=== PATIENT | male | born 1935 | race Caucasian/White ===

== ENCOUNTER 2020-12-14 20:55 | Inpatient (IN) | payer MEDICARE ==
[2020-12-14] MEDS ORDERED: SODIUM CHLORIDE 0.9% 1,000 ML IV STA (21:19)
--- NOTE | 2020-12-14 21:55 | ED ---
Weakness HPI - General Chief complaint: Syncope Stated complaint: Syncope Time Seen by Provider: 12/14/20 21:19 Source: EMS, RN notes reviewed, old records reviewed, Caregiver Mode of arrival: EMS Limitations: altered mental status - History of Present Illness Initial comments: This is an 85-year-old male to the ER today for evaluation. Patient presents today for evaluation regards to altered mental status not feeling well possible syncopal episode of weakness. Patient underwent right history he states he just feels like crap. History obtained from chart EMS and patient's prior history. MD Complaint: generalized weakness, lack of energy, difficulty walking -: unknown Location: generalized Severity: severe Severity scale (1-10): 8 Quality: constant Consistency: constant Improves with: none Worsens with: none Context: recent illness, history of similar Associated Symptoms: confusion, loss of appetite, nausea/vomiting, shortness of breath - Related Data Home Medications Medication Instructions Recorded Confirmed Acetaminophen Tab [Tylenol] 650 mg PO Q6H PRN 12/14/20 12/14/20 Apixaban [Eliquis] 2.5 mg PO BID@0800,199912/14/20 12/14/20 Ascorbic Acid [Vitamin C] 500 mg PO DAILY@0800 12/14/20 12/14/20 Aspirin 81 mg PO DAILY@0800 12/14/20 12/14/20 Atorvastatin [Lipitor] 20 mg PO HS 12/14/20 12/14/20 Brinzolamide [Brinzolamide 1% 1 drop BOTH EYES BID@0800,1600 12/14/20 12/14/20 Ophth Susp] Cholecalciferol [Vitamin D3 (25 125 mcg PO DAILY@0800 12/14/20 12/14/20 Mcg = 1000 Iu)] Diltiazem Oral [Cardizem Oral] 30 mg PO BID@0800,199912/14/20 12/14/20 Donepezil [Aricept] 10 mg PO HS 12/14/20 12/14/20 Latanoprost Ophth [Xalatan 0.005%] 1 drop BOTH EYES HS 12/14/20 12/14/20 Lidocaine [Lidoderm 5% Patch] 1 patch TRANSDERM DAILY 12/14/20 12/14/20 Med Plus 2.0 120 ml PO BID@0800,1600 12/14/20 12/14/20 Melatonin 5 mg PO HS PRN 12/14/20 12/14/20 Multivitamins, Thera [Multivitamin 1 tab PO DAILY@0800 12/14/20 12/14/20 (formulary)] Pilocarpine 1% Ophth Soln [Isopto 1 drop RIGHT EYE BID@0800,199912/14/20 12/14/20 Carpine 1%] Timolol 0.5% Ophth Gel Forming 1 drop BOTH EYES BID@799,199912/14/20 12/14/20 [Timoptic-Xe 0.5% Gel Form] Zinc Sulfate [Orazinc] 220 mg PO DAILY@0800 12/14/20 12/14/20 Allergies Allergy/AdvReac Type Severity Reaction Status Date / Time oxycodone Allergy Unknown Verified 12/14/20 22:50 Penicillins Allergy Unknown Verified 12/14/20 22:50 Review of Systems ROS Statement: Those systems with pertinent positive or pertinent negative responses have been documented in the HPI. ROS Other: All systems not noted in ROS Statement are negative. Past Medical History Past Medical History: Atrial Fibrillation, Heart Failure Additional Past Medical History / Comment(s): lumbar fracture History of Any Multi-Drug Resistant Organisms: Unobtainable Past Surgical History: No Surgical Hx Reported Past Psychological History: Unable to Obtain Smoking Status: Unknown if ever smoked Past Alcohol Use History: Unable to Obtain Past Drug Use History: Unable to Obtain General Exam Limitations: altered mental status General appearance: alert, in no apparent distress Head exam: Present: atraumatic, normocephalic, normal inspection Eye exam: Present: normal appearance, PERRL, EOMI. Absent: scleral icterus, conjunctival injection, periorbital swelling ENT exam: Present: normal exam, mucous membranes moist Neck exam: Present: normal inspection. Absent: tenderness, meningismus, lymphadenopathy Respiratory exam: Present: normal lung sounds bilaterally. Absent: respiratory distress, wheezes, rales, rhonchi, stridor Cardiovascular Exam: Present: regular rate, normal rhythm, normal heart sounds. Absent: systolic murmur, diastolic murmur, rubs, gallop, clicks GI/Abdominal exam: Present: soft, normal bowel sounds. Absent: distended, tenderness, guarding, rebound, rigid Extremities exam: Present: normal inspection, full ROM, normal capillary refill. Absent: tenderness, pedal edema, joint swelling, calf tenderness Back exam: Present: normal inspection Neurological exam: Present: alert, oriented X3, CN II-XII intact Psychiatric exam: Present: normal affect, normal mood Skin exam: Present: warm, dry, intact, normal color. Absent: rash Course Vital Signs 12/14/20 21:05 Temperature 98.6 F Pulse Rate 78 Respiratory 19 Rate Blood Pressure 104/56 O2 Sat by Pulse 100 Oximetry - Reevaluation(s) Reevaluation #1: 12/15/20 00:35 Record is reviewed Reevaluation #2: 12/15/20 00:35 no change in symptoms Reevaluation #3: 12/15/20 00:35 Patient denies chest chest pain and reevaluation - Consultations Consultation #1: Spoke with Dr. Diallo agrees for admission of patient EKG Findings - EKG Comments: EKG Findings:: EKG shows A. fib 82 QRS 84 QTc 455 Medical Decision Making - Medical Decision Making 85 male to the ED for evaluation patient for severe weakness, states she does not feel well. Patient does have non-ST elevated FL with syncopal episode. Patient be admitted for evaluation and management - Lab Data Result diagrams: 12/14/20 21:51 12/14/20 21:51 Lab Results 12/14/20 12/14/20 12/14/20 Range/Units 21:51 21:51 21:51 WBC 8.6 (3.8-10.6) k/uL RBC 3.30 L (4.30-5.90) m/uL Hgb 10.4 L (13.0-17.5) gm/dL Hct 32.1 L (39.0-53.0) % MCV 97.4 (80.0-100.0) fL MCH 31.4 (25.0-35.0) pg MCHC 32.2 (31.0-37.0) g/dL RDW 13.3 (11.5-15.5) % Plt Count 409 (150-450) k/uL MPV 7.6 Neutrophils % 81 % Lymphocytes % 10 % Monocytes % 6 % Eosinophils % 0 % Basophils % 0 % Neutrophils # 7.0 (1.3-7.7) k/uL Lymphocytes # 0.9 L (1.0-4.8) k/uL Monocytes # 0.5 (0-1.0) k/uL Eosinophils # 0.0 (0-0.7) k/uL Basophils # 0.0 (0-0.2) k/uL PT 11.4 (9.0-12.0) sec INR 1.1 (<1.2) APTT 19.6 L (22.0-30.0) sec Sodium 141 (137-145) mmol/L Potassium 4.5 (3.5-5.1) mmol/L Chloride 108 H (98-107) mmol/L Carbon Dioxide 20 L (22-30) mmol/L Anion Gap 13 mmol/L BUN 58 H (9-20) mg/dL Creatinine 1.11 (0.66-1.25) mg/dL Est GFR (CKD-EPI)AfAm 70 (>60 ml/min/1.73 sqM) Est GFR (CKD-EPI)NonAf 60 (>60 ml/min/1.73 sqM) Glucose 125 H (74-99) mg/dL Plasma Lactic Acid Tommy (0.7-2.0) mmol/L Calcium 9.9 (8.4-10.2) mg/dL Phosphorus 3.0 (2.5-4.5) mg/dL Magnesium 2.1 (1.6-2.3) mg/dL Total Bilirubin 0.4 (0.2-1.3) mg/dL AST 30 (17-59) U/L ALT 17 (4-49) U/L Alkaline Phosphatase 79 (38-126) U/L Troponin I (0.000-0.034) ng/mL Total Protein 7.1 (6.3-8.2) g/dL Albumin 4.2 (3.5-5.0) g/dL TSH 0.978 (0.465-4.680) mIU/L 12/14/20 12/14/20 Range/Units 21:51 21:51 WBC (3.8-10.6) k/uL RBC (4.30-5.90) m/uL Hgb (13.0-17.5) gm/dL Hct (39.0-53.0) % MCV (80.0-100.0) fL MCH (25.0-35.0) pg MCHC (31.0-37.0) g/dL RDW (11.5-15.5) % Plt Count (150-450) k/uL MPV Neutrophils % % Lymphocytes % % Monocytes % % Eosinophils % % Basophils % % Neutrophils # (1.3-7.7) k/uL Lymphocytes # (1.0-4.8) k/uL Monocytes # (0-1.0) k/uL Eosinophils # (0-0.7) k/uL Basophils # (0-0.2) k/uL PT (9.0-12.0) sec INR (<1.2) APTT (22.0-30.0) sec Sodium (137-145) mmol/L Potassium (3.5-5.1) mmol/L Chloride (98-107) mmol/L Carbon Dioxide (22-30) mmol/L Anion Gap mmol/L BUN (9-20) mg/dL Creatinine (0.66-1.25) mg/dL Est GFR (CKD-EPI)AfAm (>60 ml/min/1.73 sqM) Est GFR (CKD-EPI)NonAf (>60 ml/min/1.73 sqM) Glucose (74-99) mg/dL Plasma Lactic Acid Tommy 1.6 (0.7-2.0) mmol/L Calcium (8.4-10.2) mg/dL Phosphorus (2.5-4.5) mg/dL Magnesium (1.6-2.3) mg/dL Total Bilirubin (0.2-1.3) mg/dL AST (17-59) U/L ALT (4-49) U/L Alkaline Phosphatase (38-126) U/L Troponin I 0.209 H* (0.000-0.034) ng/mL Total Protein (6.3-8.2) g/dL Albumin (3.5-5.0) g/dL TSH (0.465-4.680) mIU/L - Radiology Data Radiology results: report reviewed (CXR is negative for acute disase), image reviewed Critical Care Time Critical Care Time: Yes Total Critical Care Time: 31 Disposition Clinical Impression: Vasovagal syncope, Dehydration, NSTEMI (non-ST elevated myocardial infarction) Disposition: ADMITTED IP TO THIS [facility] Condition: Fair Is patient prescribed a controlled substance at d/c from ED?: No Referrals: Dustin Chavez MD [Primary Care Provider] - 1-2 days
[2020-12-14 22:05] LABS: Basophils % (A) 0 %; Eosinophils % (A) 0 %; HCT 32.1 % (39.0-53.0); HGB 10.4 gm/dL (13.0-17.5); Lymphocytes # (A) 0.9 k/uL (1.0-4.8); Lymphocytes % (A) 10 %; MCH 31.4 pg (25.0-35.0); MCHC 32.2 g/dL (31.0-37.0); MCV 97.4 fL (80.0-100.0); Mean Platelet Volume 7.6; Monocytes # (A) 0.5 k/uL (0-1.0); Monocytes % (A) 6 %; Neutrophils % (A) 81 %; Platelet Count 409 k/uL (150-450); RDW 13.3 % (11.5-15.5); WBC 8.6 k/uL (3.8-10.6)
--- NOTE | 2020-12-14 22:17 | XR ---
EXAMINATION TYPE: XR chest 2V DATE OF EXAM: 12/14/2020 COMPARISON: NONE HISTORY: Weakness TECHNIQUE: 2 views FINDINGS: Heart is normal. Lungs are clear of infiltrate. There are no hilar masses. Costophrenic ang les are clear. Bony thorax is intact. IMPRESSION: No active cardiopulmonary disease. Normal heart.
[2020-12-14 22:23] LABS: INR 1.1 (<1.2); Prothrombin Time 11.4 sec (9.0-12.0)
[2020-12-14 22:28] LABS: Partial Thromboplastin Time 19.6 sec (22.0-30.0)
[2020-12-14 22:43] LABS: Albumin 4.2 g/dL (3.5-5.0); Calcium 9.9 mg/dL (8.4-10.2); Magnesium 2.1 mg/dL (1.6-2.3); Potassium 4.5 mmol/L (3.5-5.1); Total Bilirubin 0.4 mg/dL (0.2-1.3); Total Protein 7.1 g/dL (6.3-8.2)
[2020-12-15] MEDS ORDERED: HEPARIN SODIUM 1,000 UN/ML (10ML VL) IV ONE (00:27)
[2020-12-15] MEDS ORDERED: NALOXONE 0.4 MG/ML 1 ML VIAL IV PRN (00:27)
[2020-12-15] MEDS: SODIUM CHLORIDE 0.9% 1,000 ML IV SCH ×3 (01:04→20:34)
[2020-12-15] MEDS: MORPHINE SULFATE 4 MG/ML SYRINGE IV PRN ×2 (02:31→06:32)
--- NOTE | 2020-12-15 03:05 | P.HPIM ---
History of Present Illness H&P Date: 12/15/20 Patient is an 85-year-old male with a PMH of glaucoma (legally blind), hearing loss, A. fib on Eliquis, hypertension, hyperlipidemia, who was sent in from [facility] due to episodes of syncope. History supplemented by the at the bedside as the patient is very hard of hearing and it was thereby difficult to communicate with him. The reports that the patient was undergoing rehab at [facility] [place] when he lost consciousness for an unknown duration. She was not told of any shaking movements or any clear prodrome. The patient was not allowed to fall as the therapist held him up. Patient does not recall the episode but does state that he has not been experiencing any chest discomfort, shortness of breath, palpitations. The further reports that he has been having similar episodes over the past few weeks as well. Patient however further denied fever, chills, cough, nausea, vomiting, abdominal pain, diarrhea. In the emergency room, an EKG revealed A. fib at 82 bpm with left axis deviation. Chest x-ray was unremarkable. Laboratory evaluation was remarkable for troponin of 0.09, BUN 58, creatinine 1.11. Review of systems: Pertinent positives and negatives as discussed in HPI, a complete review of systems was performed and all other systems are negative. Physical examination: General: non toxic, no distress, appears at stated age, normal weight Derm: no unusual rashes/lesions no unusual ecchymoses, warm, dry Head: atraumatic, normocephalic, symmetric Eyes: EOMI, no lid lag, anicteric sclera, pupils equal round reactive to light ENT: Nose and ears atraumatic, no thrush, no pharyngeal erythema Neck: No thyromegaly, no cervical lymphadenopathy, trachea midline, supple Mouth: no lip lesion, mucus membranes moist Cardiovascular: S1S2 reg, no murmur, positive posterior tibial pulse bilateral, no edema, capillary refill less than 2 seconds Lungs: CTA bilateral, no rhonchi, no rales , no accessory muscle use Abdominal: soft, nontender to palpation, no guarding, no appreciable organomegaly, normal bowel sounds Ext: no gross muscle atrophy, muscle strength 5 out of 5 in all 4 extremities grossly, no contractures, Neuro: CN II-XI grossly intact, light touch intact all 4 extremities Psych: Alert, oriented only to self, not to place or time Assessment/plan Syncope, differential includes cardiogenic versus seizure -No reports of seizure-like activity during these episodes. -Continue to trend troponin -Cardiac monitoring -Cardiology consulted NSTEMI -C/w above management Chronic conditions: glaucoma, A. 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, kidney stone removal in 2019, glaucoma Last Myocardial Infarction Date:: 2016 History of Any Multi-Drug Resistant Organisms: None Reported Past Surgical History: Heart Catheterization With Stent Additional Past Surgical History / Comment(s): Heart cath with 3 stents in 2016 Past Anesthesia/Blood Transfusion Reactions: No Reported Reaction Date of Last Stent Placement:: 2016 Past Psychological History: No Psychological Hx Reported Smoking Status: Never smoker Past Alcohol Use History: None Reported Past Drug Use History: None Reported - Past Family History Mother Additional Family Medical History / Comment(s): Glaucoma Father Family Medical History: No Reported History Medications and Allergies Home Medications Medication Instructions Recorded Confirmed Type Acetaminophen Tab [Tylenol] 650 mg PO Q6H PRN 12/14/20 12/14/20 History Apixaban [Eliquis] 2.5 mg PO BID@0800,199912/14/20 12/14/20 History Ascorbic Acid [Vitamin C] 500 mg PO DAILY@0800 12/14/20 12/14/20 History Aspirin 81 mg PO DAILY@0800 12/14/20 12/14/20 History Atorvastatin [Lipitor] 20 mg PO HS 12/14/20 12/14/20 History Brinzolamide [Brinzolamide 1% 1 drop BOTH EYES BID@0800,1600 12/14/20 12/14/20 History Ophth Susp] Cholecalciferol [Vitamin D3 (25 125 mcg PO DAILY@0800 12/14/20 12/14/20 History Mcg = 1000 Iu)] Diltiazem Oral [Cardizem Oral] 30 mg PO BID@0800,199912/14/20 12/14/20 History Donepezil [Aricept] 10 mg PO HS 12/14/20 12/14/20 History Latanoprost Ophth [Xalatan 0.005%] 1 drop BOTH EYES HS 12/14/20 12/14/20 History Lidocaine [Lidoderm 5% Patch] 1 patch TRANSDERM DAILY 12/14/20 12/14/20 History Med Plus 2.0 120 ml PO BID@0800,1600 12/14/20 12/14/20 History Melatonin 5 mg PO HS PRN 12/14/20 12/14/20 History Multivitamins, Thera [Multivitamin 1 tab PO DAILY@0800 12/14/20 12/14/20 History (formulary)] Pilocarpine 1% Ophth Soln [Isopto 1 drop RIGHT EYE BID@0800,199912/14/20 12/14/20 History Carpine 1%] Timolol 0.5% Ophth Gel Forming 1 drop BOTH EYES BID@0800,199912/14/20 12/14/20 History [Timoptic-Xe 0.5% Gel Form] Zinc Sulfate [Orazinc] 220 mg PO DAILY@0800 12/14/20 12/14/20 History Allergies Allergy/AdvReac Type Severity Reaction Status Date / Time oxycodone Allergy Unknown Verified 12/14/20 22:50 Penicillins Allergy Unknown Verified 12/14/20 22:50 Physical Exam Vitals: Vital Signs Temp Pulse Pulse Resp BP BP Pulse Ox 12/15/20 01:29 98.2 F 77 18 130/72 98 12/15/20 01:00 97.8 F 78 20 116/66 98 12/14/20 21:05 98.6 F 78 19 104/56 100 Intake and Output 12/14/20 12/14/20 12/15/20 14:59 22:59 06:59 Other: Voiding Method Bedside Commode Diaper Weight 78.471 kg 78.471 kg Results CBC & Chem 7: 12/14/20 21:51 12/14/20 21:51 Labs: Abnormal Lab Results - Last 24 Hours (Table) 12/14/20 12/14/20 12/14/20 Range/Units 21:51 21:51 21:51 RBC 3.30 L (4.30-5.90) m/uL Hgb 10.4 L (13.0-17.5) gm/dL Hct 32.1 L (39.0-53.0) % Lymphocytes # 0.9 L (1.0-4.8) k/uL APTT 19.6 L (22.0-30.0) sec Chloride 108 H (98-107) mmol/L Carbon Dioxide 20 L (22-30) mmol/L BUN 58 H (9-20) mg/dL Glucose 125 H (74-99) mg/dL Troponin I (0.000-0.034) ng/mL 12/14/ Range/Units 21:51 RBC (4.30-5.90) m/uL Hgb (13.0-17.5) gm/dL Hct (39.0-53.0) % Lymphocytes # (1.0-4.8) k/uL APTT (22.0-30.0) sec Chloride (98-107) mmol/L Carbon Dioxide (22-30) mmol/L BUN (9-20) mg/dL Glucose (74-99) mg/dL Troponin I 0.209 H* (0.000-0.034) ng/mL Thrombosis Risk Factor Assmnt - Choose All That Apply Any of the Below Risk Factors Present?: Yes Each Factor Represents 1 point: Acute MA Other Risk Factors: Yes Each Risk Factor Represents 3 Points: Age 75 years or older Other congenital or acquired thrombophilia - If yes, enter type in comment: No Thrombosis Risk Factor Assessment Total Risk Factor Score: 4 Thrombosis Risk Factor Assessment Level: Moderate Risk
[2020-12-15 04:07] LABS: Appearance,Urine Clear (Clear); Bilirubin,Urine Negative (Negative); Blood,Urine Negative (Negative); Color,Urine Yellow; Glucose,Urine (UA) Negative (Negative); Ketones,Urine 1+ (Negative); Leukocyte Esterase,Urine Negative (Negative); Nitrite,Urine Negative (Negative); Protein,Urine Negative (Negative); Specific Gravity,Urine 1.025 (1.001-1.035); Urobilinogen,Urine <2.0 mg/dL (<2.0)
[2020-12-15] MEDS: ASCORBIC ACID 500 MG TAB PO SCH (08:54)
[2020-12-15] MEDS: DILTIAZEM ORAL 30 MG TAB PO SCH ×2 (08:54→20:33)
[2020-12-15] MEDS: MULTIVITAMINS, THERA 1 EACH TAB PO SCH (08:54)
[2020-12-15] MEDS: CHOLECALCIFEROL 25 MCG (1000 IU) TABLET PO SCH (08:54)
[2020-12-15] MEDS: APIXABAN 2.5 MG TABLET PO SCH ×2 (08:54→20:33)
[2020-12-15] MEDS: TIMOLOL 0.5% OPHTH DROPS 5 ML BTL BOTH EYES SCH ×2 (08:55→20:33)
[2020-12-15] MEDS: DORZOLAMIDE HCL 2% DROPS 10 ML BTL BOTH EYES SCH ×2 (08:55→20:30)
[2020-12-15] MEDS: PANTOPRAZOLE 40 MG/10 ML VIAL IV SCH (08:56)
[2020-12-15] MEDS ORDERED: ASPIRIN 81 MG PO SCH (09:00)
--- NOTE | 2020-12-15 10:08 | P.CRDCN ---
History of Present Illness History of present illness: HISTORY OF PRESENTING ILLNESS This is a pleasant 85-year-old male past medical history significant for chronic persistent atrial fibrillation on Eliquis, myocardial infarction, coronary disea se status post PCI in 2017 (per 3-[address] Tanner), CVA/TIA, myocardial infarction, heart failure, hearing loss, glaucoma, legally blind. He follows with Dr. Wilde. We have been asked to see in consultation for elevated troponin. Patient is seen and examined at bedside, at bedside. Presents emergency department due to a fall and possible loss of consciousness at [facility]. reports that patient is in rehab at [facility] due to a previous fall and injured his back. She states the patient fell at [facility] and did lose consciousness of unknown downtime. She states he has had numerous episodes of this. She states he recently saw Dr. Wilde and there was no abnormalities or issues at this visit. The patient denies any chest pain, shortness of breath, palpitations, pain, abdominal pain, nausea, vomiting. DIAGNOSTICS EKG reveals atrial fibrillation, heart rate 82, Q wave in inferior leads appears to be consistent with prior infarct. No prior EKG to compare Telemetry tracings indicate atrial fibrillation with controlled ventricular rates. No evidence of tachycardia or bradycardia Chest xray no active cardiopulmonary disease. No heart failure. Laboratory reviewed, WBC 8.6 7110.4, platelets 49, sodium 141, potassium 4.5, BUN 58, serum creatinine 1.11, magnesium 2.1, UA negative, COVID-19 PCR negative, TSH within normal limits, troponin 0.20, 0.23 REVIEW OF SYSTEMS At the time of my exam: CONSTITUTIONAL: Denies fever or chills. CARDIOVASCULAR: Denies chest pain, shortness of breath, orthopnea, PND or palpitations. RESPIRATORY: Denies cough. GASTROINTESTINAL: Denies abdominal pain, diarrhea, constipation, nausea or vomiting. MUSCULOSKELETAL: Denies myalgias. NEUROLOGIC: Denies numbness, tingling, headacbe or weakness. ENDOCRINE: Denies fatigue, weight change, polydipsia or polyurina. GENITOURINARY: Denies burning, hematuria or urgency with micturation. HEMATOLOGIC: Denies history of anemia or bleeding. PHYSICAL EXAMINATION Blood pressure 110/60, heart rate 82, afebrile, T-max saturations on room air CONSTITUTIONAL: No apparent distress. Hard of hearing. Legally blind HEENT: Head is normocephalic. Pupils are equal, round. Sclerae anicteric. Mucous membranes of the mouth are moist. No JVD. No carotid bruit. CHEST EXAMINATION: Lungs are clear to auscultation. No chest wall tenderness is noted on palpation or with deep breathing. HEART EXAMINATION: Irregular rate and rhythm. S1, S2 heard. No murmurs, gallops or rub. ABDOMEN: Soft, nontender. Positive bowel sounds. EXTREMITIES: 2+ peripheral pulses, no lower extremity edema and no calf tenderness. NEUROLOGIC EXAMINATION: Patient is awake, and alert ASSESSMENT Multiple Falls Possible syncope, unclear etiology at htis time Elevated troponin, not indicative of acute coronary syndrome, EKG with no evidence of acute ischemia Coronary artery disease status post PCI in 2016 Chronic persistent atrial fibrillation on Eliquis History of CVA/TIA History of myocardial infarction PLAN Obtain 2D echocardiogram and doppler study to assess cardiac structure and function. Continue cardiac telemetry We recommend medical treatment at this time, continue patient's home cardiac medications Further recommendations based on clinical course Nurse Practitioner note has been reviewed, I agree with a documented findings and plan of care. Patient was seen and examined. Past Medical History Past Medical History: Atrial Fibrillation, Heart Failure, CVA/TIA, Myocardial Infarction ([place]), Syncope Additional Past Medical History / Comment(s): Lumbar fracture, stroke in 2016, [place] 2016, esophogeal ulcer found in scope in June 2020, kidney stone removal in 2019, glaucoma Last Myocardial Infarction Date:: 2016 History of Any Multi-Drug Resistant Organisms: None Reported Past Surgical History: Heart Catheterization With Stent Additional Past Surgical History / Comment(s): Heart cath with 3 stents in 2017 Past Anesthesia/Blood Transfusion Reactions: No Reported Reaction Date of Last Stent Placement:: 2017 Past Psychological History: No Psychological Hx Reported Smoking Status: Never smoker Past Alcohol Use History: None Reported Past Drug Use History: None Reported - Past Family History Mother Additional Family Medical History / Comment(s): Glaucoma Father Family Medical History: No Reported History Medications and Allergies Home Medications Medication Instructions Recorded Confirmed Type Acetaminophen Tab [Tylenol] 650 mg PO Q6H PRN 12/14/20 12/14/20 History Apixaban [Eliquis] 2.5 mg PO BID@0800,2000 12/14/2021 History Ascorbic Acid [Vitamin C] 500 mg PO DAILY@0800 12/14/20 12/14/20 History Aspirin 81 mg PO DAILY@0800 12/14/20 12/14/20 History Atorvastatin [Lipitor] 20 mg PO HS 12/14/20 12/14/20 History Brinzolamide [Brinzolamide 1% 1 drop BOTH EYES BID@0800,1600 12/14/20 12/14/20 History Ophth Susp] Cholecalciferol [Vitamin D3 (25 125 mcg PO DAILY@0800 12/14/20 12/14/20 History Mcg = 1000 Iu)] Diltiazem Oral [Cardizem Oral] 30 mg PO BID@0800,199912/14/20 12/14/20 History Donepezil [Aricept] 10 mg PO HS 12/14/20 12/14/20 History Latanoprost Ophth [Xalatan 0.005%] 1 drop BOTH EYES HS 12/14/20 12/14/20 History Lidocaine [Lidoderm 5% Patch] 1 patch TRANSDERM DAILY 12/14/20 12/14/20 History Med Plus 2.0 120 ml PO BID@0800,1600 12/14/20 12/14/20 History Melatonin 5 mg PO HS PRN 12/14/20 12/14/20 History Multivitamins, Thera [Multivitamin 1 tab PO DAILY@0800 12/14/20 12/14/20 History (formulary)] Pilocarpine 1% Ophth Soln [Isopto 1 drop RIGHT EYE BID@0800,199912/14/20 12/14/20 History Carpine 1%] Timolol 0.5% Ophth Gel Forming 1 drop BOTH EYES BID@0800,199912/14/20 12/14/20 History [Timoptic-Xe 0.5% Gel Form] Zinc Sulfate [Orazinc] 220 mg PO DAILY@0800 12/14/20 12/14/20 History Allergies Allergy/AdvReac Type Severity Reaction Status Date / Time oxycodone Allergy Unknown Verified 12/14/20 22:50 Penicillins Allergy Unknown Verified 12/14/20 22:50 Physical Exam Vitals: Vital Signs Temp Pulse Pulse Resp BP BP Pulse Ox 12/15/20 03:23 99.2 F 75 18 120/71 97 12/15/20 01:29 98.2 F 77 18 130/72 98 12/15/20 01:00 97.8 F 78 20 116/66 98 12/14/20 21:05 98.6 F 78 19 104/56 100 Intake and Output 12/14/20 12/15/20 12/15/20 22:59 06:59 14:59 Other: Voiding Method Bedside Commode Diaper # Voids 1 Weight 78.471 kg 68 kg Results 12/14/20 21:51 12/14/20 21:51 Cardiac Enzymes 12/14/20 12/14/20 12/15/20 Range/Units 21:51 21:51 03:50 AST 30 (17-59) U/L Troponin I 0.209 H* 0.237 H* (0.000-0.034) ng/mL Coagulation 12/14/20 Range/Units 21:51 PT 11.4 (9.0-12.0) sec APTT 19.6 L (22.0-30.0) sec CBC 12/14/20 Range/Units 21:51 WBC 8.6 (3.8-10.6) k/uL RBC 3.30 L (4.30-5.90) m/uL Hgb 10.4 L (13.0-17.5) gm/dL Hct 32.1 L (39.0-53.0) % Plt Count 409 (150-450) k/uL Comprehensive Metabolic Panel 12/14/20 Range/Units 21:51 Sodium 141 (137-145) mmol/L Potassium 4.5 (3.5-5.1) mmol/L Chloride 108 H (98-107) mmol/L Carbon Dioxide 20 L (22-30) mmol/L BUN 58 H (9-20) mg/dL Creatinine 1.11 (0.66-1.25) mg/dL Glucose 125 H (74-99) mg/dL Calcium 9.9 (8.4-10.2) mg/dL AST 30 (17-59) U/L ALT 17 (4-49) U/L Alkaline Phosphatase 79 (38-126) U/L Total Protein 7.1 (6.3-8.2) g/dL Albumin 4.2 (3.5-5.0) g/dL Current Medications Generic Name Dose Route Start Last Admin Trade Name Freq PRN Reason Stop Dose Admin Apixaban 2.5 mg 12/15/20 09:00 Apixaban 2.5 Mg Tablet PO BID [facility] Protocol Ascorbic Acid 500 mg 12/15/20 09:00 Ascorbic Acid 500 Mg Tab PO DAILY [facility] Aspirin 81 mg 12/15/20 09:00 Aspirin 81 Mg PO DAILY [facility] Atorvastatin Calcium 20 mg 12/15/20 21:00 Atorvastatin 20 Mg Tab PO HS [facility] Cholecalciferol 125 mcg 12/15/20 09:00 Cholecalciferol 25 Mcg (1000 Iu) Tablet PO DAILY [facility] Diltiazem HCl 30 mg 12/15/20 09:00 Diltiazem Oral 30 Mg Tab PO BID [facility] Donepezil HCl 10 mg 12/15/20 21:00 Donepezil 10 Mg Tab PO HS [facility] Dorzolamide HCl 1 drops 12/15/20 09:00 Dorzolamide Hcl 2% Drops 10 Ml Btl BOTH EYES BID [facility] Sodium Chloride 1,000 mls @ 130 mls/hr 12/15/20 00:30 12/15/20 01:04 Saline 0.9% IV 130 mls/hr .Q7H42M [facility] Administration Latanoprost 1 drops 12/15/20 21:00 Latanoprost 0.005% Ophth Drops 2.5 Ml Btl BOTH EYES HS [facility] Melatonin 5 mg 12/15/20 03:05 Melatonin 5 Mg Tablet PO HS PRN Insomnia Morphine Sulfate 4 mg 12/15/20 00:27 12/15/20 06:32 Morphine Sulfate 4 Mg/Ml Syringe IV 4 mg Q4HR PRN Administration Severe Pain Multivitamins 1 each 12/15/20 09:00 Multivitamins, Thera 1 Each Tab PO DAILY [facility] Naloxone HCl 0.2 mg 12/15/20 00:27 Naloxone 0.4 Mg/Ml 1 Ml Vial IV Q2M PRN Opioid Reversal Ondansetron HCl 4 mg 12/15/20 00:27 Ondansetron 4 Mg/2 Ml Vial IVP Q8HR PRN Nausea And Vomiting Pantoprazole Sodium 40 mg 12/15/20 09:00 Pantoprazole 40 Mg/10 Ml Vial IV DAILY [facility] Pilocarpine HCl 1 drops 12/15/20 09:00 Pilocarpine 1% Ophth Drops 15 Ml Btl RIGHT EYE BID [facility] Timolol Maleate 1 drops 12/15/20 09:00 Timolol 0.5% Ophth Drops 5 Ml Btl BOTH EYES BID [facility]ILDA Intake and Output 12/14/20 12/15/20 12/15/20 22:59 06:59 14:59 Other: Voiding Method Bedside Commode Diaper # Voids 1 Weight 78.471 kg 68 kg 12/14/20 21:51 12/14/20 21:51
[2020-12-15] MEDS: PILOCARPINE 1% OPHTH DROPS 15 ML BTL RIGHT EYE SCH ×2 (11:41→20:34)
--- NOTE | 2020-12-15 15:00 | ECHOF ---
Referral Reason:LV function MEASUREMENTS -------- HEIGHT: 180.3 cm WEIGHT: 67.6 kg BP: IVSd: 1.0 cm (0.6 - 1.1) LVIDd: 5.0 cm (3.9 - 5.3) LVPWd: 1.2 cm (0.6 - 1.1) EDV(Teich): 121 ml IVSs: 1.4 cm LVIDs: 3.7 cm LVPWs: 1.4 cm %IVS Thck: 36 % ESV(Teich): 57 ml EF(Teich): 53 % %FS: 27 % SV(Teich): 64 ml RVIDd: 4.6 cm (< 3.3) IVC: 13.78 mm LALs A4C: 5.6 cm LAAs A4C: 15.9 cm LAESV A-L A4C: 38 ml LAESV MOD A4C: 32 ml LALs A2C: 4.5 cm LAAs A2C: 15.7 cm LAESV A-L A2C: 46 ml LAESV MOD A2C: 42 ml LAESV(A-L): 46 ml LAESV Index (A-L): 25.00 ml/m MV E Benjamin: 0.60 m/s MV DecT: 307 ms MV Dec [place]: 2.0 m/s MV A Benjamin: 0.58 m/s MV E/A Ratio: 1.03 MV PHT: 89 ms LVOT Vmax: 0.91 m/s LVOT maxP.34 mmHg AV Vmax: 1.58 m/s AV maxP.29 mmHg AV Vmax: 1.96 m/s AV Vmean: 1.55 m/s AV maxP.29 mmHg AV meanP.22 mmHg AV Env.Ti: 289 ms AV VTI: 45.0 cm TR Vmax: 2.92 m/s TR maxP.02 mmHg RAP: 5.00 mmHg RVSP: 39.02 mmHg MV EF SLOPE: 94.11 mm/s (70 - 150) MV EXCURSION: 17.59 mm (> 18.000) FINDINGS -------- Sinus rhythm with extra systolic beats. This was a technically difficult study with suboptimal apical views. The left ventricular size is normal. There is borderline concentric left ventricular hypertrophy. Overall left ventricular systolic function is low-normal with, an EF between 50 - 55 %. The right ventricle is severely enlarged. Normal LA size by volume 22+/-6 ml/m2. The right atrial size is normal. 5.0mg of Lumason was utilized for enhancement of images Interatrial and interventricular septum intact. There is mild to moderate aortic valve sclerosis. There is no evidence of aortic regurgitation. T here is no evidence of aortic stenosis. Mild mitral regurgitation is present. Mild tricuspid regurgitation present. There is mild pulmonary hypertension. The right ventricular systolic pressure, as measured by Doppler, is 39.02mmHg. There is no pulmonic regurgitation present. The aortic root size is normal. Normal inferior vena cava with normal inspiratory collapse consistent with estimated right atrial pre ssure of 5 mmHg. There is no pericardial effusion. CONCLUSIONS -------- 1. The left ventricular size is normal. 2. There is borderline concentric left ventricular hypertrophy. 3. Overall left ventricular systolic function is low-normal with, an EF between 50 - 55 %. 4. The right ventricle is severely enlarged. 5. There is mild to moderate aortic valve sclerosis. 6. Mild mitral regurgitation is present. 7. Mild tricuspid regurgitation present. 8. There is mild pulmonary hypertension. 9. The right ventricular systolic pressure, as measured by Doppler, is 39.02mmHg. EMERGENCY GENERATOR MECHANIC: Sonia Caba RDCS
--- NOTE | 2020-12-15 15:53 | P.PN ---
<Orlin Hung - Last Filed: 12/15/20 15:39> Subjective Progress Note Date: 12/15/20 Hospital course: Patient is a very pleasant 85-year-old male with a past medical history of gla ucoma (legally blind), very hard of hearing, atrial fibrillation on anticoagulation with Eliquis, hypertension, hyperlipidemia, CAD with previous [place], CHF, CVA 2017, and esophageal ulcer. Patient presented to the emergency department on 12/14/20 with a chief complaint of syncopal episode. Patient was reportedly undergoing physical therapy at [facility] when he suddenly lost consciousness. reports that therapist was able to hold patient of and he did not fall, she was unaware of the duration of his loss of consciousness, and patient reportedly had no recollection. In the emergency department, labs were completed revealing Normocytic normochromic anemia with hemoglobin of 10.4, non-anion gap metabolic acidosis with chloride of 180 carbon dioxide of 20, prerenal azotemia with BUN of 58, and elevated troponins 0.237 and 0.209. Urinalysis was negative for infection and Covid 19 PCR NEGATIVE. Chest x-ray normal findings negative for acute cardiopulmonary process. EKG revealing atri al fibrillation with a controlled ventricular rate of 82 bpm. Patient was admitted under our services with consultation to cardiology. Physical exam: Patient seen and fully evaluated at bedside this morning. Patient currently resting comfortably and denies having any chest pain or complaints at this time. he does report chronic pain to lower backPatient's remains at bedside. Patient is very hard of hearing. Echocardiogram to be completed. Vital signs reviewed and stable. General: Nontoxic, no distress and appears stated age. Derm: Skin warm and dry, normal coloration for ethnicity. Head: Atraumatic, normocephalic and symmetric. Pt very hard of hearing and legally blind. Eyes: EOMs intact, no lid lag, and anicteric sclera Mouth: no lip lesions, mucus membranes moist Cardiovascular: Irregularly irregular rhythm with normal S1S2, no murmur, positive posterior tibial pulses bilaterally, and cap refill < 2 seconds. Lungs: Respirations even, regular, and unlabored on room air. Lungs CTA bilaterally, no rhonchi, no rales, no wheezing, and no accessory muscle usage. Abdominal: soft, nontender to palpation, no guarding, no appreciable organomegaly Ext: ROM intact. No gross muscle atrophy, no edema, no contractures Neuro: Speech clear, face symmetrical and CN II-XII grossly intact with no noted focal neuro deficits Psych: Alert and oriented to person, place, time, and situation. Appropriate and pleasant affect. Assessment and Plan of Care: Syncope, differential includes cardiogenic versus seizure -No reports of seizure-like activity during these episodes. -Troponins elevated 0.209, 0.237, 0.276. -Telemetry monitoring -Cardiology consulted, appreciate further recommendations -Echocardiogram to be completed -Seizure precautions, fall precautions -consult physical therapy -Orthostatic vitals NSTEMI Atrial Fibrillation on anticoagulation with Eliquis. -Troponins elevated 0.209, 0.237, 0.276. -EKG revealing atrial fibrillation with a controlled ventricular rate of 82 bpm. -Telemetry monitoring -Cardiology consulted, appreciate further recommendations -Echocardiogram to be completed -Continue daily aspirin, atorvastatin, and Eliquis. Hypertension Monitor vital signs and continue daily medication regimen. Hyperlipidemia Continue daily medication regimen with atorvastatin 20 mg nightly Glaucoma Continue daily medication regimen with eyedrops. Chronic low back pain Continue daily medication regimen with as needed Tylenol and lidocaine patches. Fall precautions PT consult. CODE STATUS: Full code DVT prophylaxis: Eliquis Discussed with: Patient and RN Anticipated discharge date: Clinical course to determine, likely 1-[address]: Home versus back to [facility] for continued rehab A total of 45 minutes was spent on the care of this complex patient more than 50% of the time was spent in counseling and care coordination. Objective - Vital Signs Vital signs: Vital Signs Temp 99.2 F 12/15/20 03:23 Pulse 75 12/15/20 03:23 Resp 18 12/15/20 03:23 BP 120/71 12/15/20 03:23 Pulse Ox 97 12/15/20 03:23 Intake & Output 12/14/20 12/15/20 12/15/20 18:59 06:59 18:59 Weight 68 kg Other: Voiding Method Bedside Commode Diaper # Voids 1 - Labs CBC & Chem 7: 12/14/20 21:51 12/14/20 21:51 Labs: Abnormal Lab Results - Last 24 Hours (Table) 12/14/20 12/14/20 12/14/20 Range/Units 21:19 21:51 21:51 RBC 3.30 L (4.30-5.90) m/uL Hgb 10.4 L (13.0-17.5) gm/dL Hct 32.1 L (39.0-53.0) % Lymphocytes # 0.9 L (1.0-4.8) k/uL APTT 19.6 L (22.0-30.0) sec Chloride (98-107) mmol/L Carbon Dioxide (22-30) mmol/L BUN (9-20) mg/dL Glucose (74-99) mg/dL Troponin I (0.000-0.034) ng/mL Urine Ketones 1+ H (Negative) 12/14/20 12/14/20 12/15/20 Range/Units 21:51 21:51 03:50 RBC (4.30-5.90) m/uL Hgb (13.0-17.5) gm/dL Hct (39.0-53.0) % Lymphocytes # (1.0-4.8) k/uL APTT (22.0-30.0) sec Chloride 108 H (98-107) mmol/L Carbon Dioxide 20 L (22-30) mmol/L BUN 58 H (9-20) mg/dL Glucose 125 H (74-99) mg/dL Troponin I 0.209 H* 0.237 H* (0.000-0.034) ng/mL Urine Ketones (Negative) <Lexi Brasher - Last Filed: 12/15/20 20:06> Subjective Orlin Hung NP rendered care for this patient independently, reviewed the findings and plan as documented in the note above. I did not physically speak with or examine the patient on this date. Troponins are flat and not necessarily indicative of of a non-STEMI. Echocardiogram without signs of hypokinesis. Severely enlarged right ventricle. Stat d-dimer if positive for age then consider CT PE Objective - Vital Signs Vital signs: Vital Signs Temp 98.4 F 12/15/20 19:12 Pulse 78 12/15/20 15:50 Resp 18 12/15/20 15:50 BP 129/60 12/15/20 15:50 Pulse Ox 96 12/15/20 15:50 Intake & Output 12/15/20 12/15/20 12/16/20 06:59 18:59 06:59 Intake Total 1280 Balance 1280 Weight 68 kg Intake: Intake, IV Titration 1040 Amount Sodium Chloride 0.9% 1, 1040 000 ml @ 130 mls/hr IV . Q7H42M [facility] Rx#:[id number] Oral 240 Other: Voiding Method Bedside Commode Bedside Commode Diaper Diaper # Voids 1 2 - Labs CBC & Chem 7: 12/14/20 21:51 12/14/20 21:51 Labs: Abnormal Lab Results - Last 24 Hours (Table) 12/14/20 12/14/20 12/14/20 Range/Units 21:19 21:51 21:51 RBC 3.30 L (4.30-5.90) m/uL Hgb 10.4 L (13.0-17.5) gm/dL Hct 32.1 L (39.0-53.0) % Lymphocytes # 0.9 L (1.0-4.8) k/uL APTT 19.6 L (22.0-30.0) sec Chloride (98-107) mmol/L Carbon Dioxide (22-30) mmol/L BUN (9-20) mg/dL Glucose (74-99) mg/dL Troponin I (0.000-0.034) ng/mL Urine Ketones 1+ H (Negative) 12/14/20 12/14/20 12/15/20 Range/Units 21:51 21:51 03:50 RBC (4.30-5.90) m/uL Hgb (13.0-17.5) gm/dL Hct (39.0-53.0) % Lymphocytes # (1.0-4.8) k/uL APTT (22.0-30.0) sec Chloride 108 H (98-107) mmol/L Carbon Dioxide 20 L (22-30) mmol/L BUN 58 H (9-20) mg/dL Glucose 125 H (74-99) mg/dL Troponin I 0.209 H* 0.237 H* (0.000-0.034) ng/mL Urine Ketones (Negative) 12/15/20 Range/Units 08:37 RBC (4.30-5.90) m/uL Hgb (13.0-17.5) gm/dL Hct (39.0-53.0) % Lymphocytes # (1.0-4.8) k/uL APTT (22.0-30.0) sec Chloride (98-107) mmol/L Carbon Dioxide (22-30) mmol/L BUN (9-20) mg/dL Glucose (74-99) mg/dL Troponin I 0.276 H* (0.000-0.034) ng/mL Urine Ketones (Negative)
[2020-12-15] MEDS: ACETAMINOPHEN TAB 325 MG TAB PO PRN (17:19)
[2020-12-15] MEDS: LIDOCAINE 5% PATCH TOPICAL SCH (17:20)
[2020-12-15] MEDS: ATORVASTATIN 20 MG TAB PO SCH (20:33)
[2020-12-15] MEDS: DONEPEZIL 10 MG TAB PO SCH (20:33)
[2020-12-15] MEDS: LATANOPROST 0.005% OPHTH DROPS 2.5 ML BTL BOTH EYES SCH (20:34)
[2020-12-16] MEDS: ACETAMINOPHEN TAB 325 MG TAB PO PRN (02:35)
[2020-12-16] MEDS: SODIUM CHLORIDE 0.9% 1,000 ML IV SCH ×4 (02:36→21:47)
[2020-12-16 07:24] LABS: Albumin 2.5 g/dL (3.5-5.0); Calcium 8.3 mg/dL (8.4-10.2); Magnesium 1.8 mg/dL (1.6-2.3); Phosphorus 3.1 mg/dL (2.5-4.5); Potassium 3.5 mmol/L (3.5-5.1); Total Bilirubin 0.3 mg/dL (0.2-1.3); Total Protein 4.6 g/dL (6.3-8.2)
[2020-12-16 08:07] LABS: Basophils % (A) 0 %; Eosinophils # (A) 0.1 k/uL (0-0.7); Eosinophils % (A) 2 %; Hypochromasia Slight; Lymphocytes # (A) 0.8 k/uL (1.0-4.8); Lymphocytes % (A) 14 %; MCH 32.1 pg (25.0-35.0); MCV 97.4 fL (80.0-100.0); Mean Platelet Volume 7.4; Monocytes # (A) 0.4 k/uL (0-1.0); Monocytes % (A) 6 %; Neutrophils # (A) 4.4 k/uL (1.3-7.7); Neutrophils % (A) 76 %; Platelet Count 309 k/uL (150-450); RBC 1.97 m/uL (4.30-5.90); RDW 13.9 % (11.5-15.5); WBC 5.8 k/uL (3.8-10.6)
[2020-12-16 08:12] LABS: HCT 19.2 % (39.0-53.0); HGB 6.3 gm/dL (13.0-17.5)
[2020-12-16] MEDS: PANTOPRAZOLE 40 MG/10 ML VIAL IV SCH ×2 (08:27→21:50)
[2020-12-16] MEDS: DILTIAZEM ORAL 30 MG TAB PO SCH ×2 (08:27→21:48)
[2020-12-16] MEDS: CHOLECALCIFEROL 25 MCG (1000 IU) TABLET PO SCH (08:27)
[2020-12-16] MEDS: ASCORBIC ACID 500 MG TAB PO SCH (08:27)
[2020-12-16] MEDS: MORPHINE SULFATE 4 MG/ML SYRINGE IV PRN (08:28)
[2020-12-16] MEDS: MULTIVITAMINS, THERA 1 EACH TAB PO SCH (08:29)
[2020-12-16] MEDS: TIMOLOL 0.5% OPHTH DROPS 5 ML BTL BOTH EYES SCH ×2 (08:29→21:49)
[2020-12-16] MEDS: LIDOCAINE 5% PATCH TOPICAL SCH (08:29)
[2020-12-16] MEDS: PILOCARPINE 1% OPHTH DROPS 15 ML BTL RIGHT EYE SCH ×2 (08:29→21:49)
[2020-12-16] MEDS: DORZOLAMIDE HCL 2% DROPS 10 ML BTL BOTH EYES SCH ×2 (08:52→21:53)
[2020-12-16 09:57] LABS: Basophils % (A) 0 %; Eosinophils # (A) 0.1 k/uL (0-0.7); Eosinophils % (A) 2 %; HCT 20.6 % (39.0-53.0); Hypochromasia Slight; Lymphocytes # (A) 0.8 k/uL (1.0-4.8); Lymphocytes % (A) 15 %; MCH 31.1 pg (25.0-35.0); MCHC 31.9 g/dL (31.0-37.0); MCV 97.4 fL (80.0-100.0); Mean Platelet Volume 7.7; Monocytes # (A) 0.3 k/uL (0-1.0); Monocytes % (A) 6 %; Neutrophils # (A) 4.2 k/uL (1.3-7.7); Neutrophils % (A) 75 %; Platelet Count 334 k/uL (150-450); RBC 2.12 m/uL (4.30-5.90); WBC 5.6 k/uL (3.8-10.6)
[2020-12-16 10:00] LABS: HGB 6.6 gm/dL (13.0-17.5)
--- NOTE | 2020-12-16 11:56 | CT ---
EXAMINATION TYPE: CT abdomen pelvis wo/w con DATE OF EXAM: 12/16/2020 COMPARISON: NONE HISTORY: 85-year-old male Gi bleed, low hemoglobin. Right upper quadrant pain, black stools. TECHNIQUE: Contiguous axial scanning of the abdomen and pelvis before and after administration of 100 ml Omnipaque 300 IV contrast. Delayed images through the kidneys and coronal/sagittal reconstructio ns performed. CT DLP: 1119.2 mGycm Automated exposure control for dose reduction was used. FINDINGS: Heart mildly enlarged without pericardial effusion. Emphysematous change in the visualized lower lung s. Trace effusions. Some septal lines in the lower lungs could represent areas of atelectasis or lambert vascular congestion. Prominent circumferential thickening in the region of the distal esophagus could represent a moderate -sized hiatal hernia or abnormal esophageal thickening. Given patient's GI bleeding, direct visualiza tion is recommended. 2.1 cm medial right liver lobe cyst. Portal venous system is patent. No biliary ductal dilatation. Gallbladder, spleen with inferior splenule, pancreas within normal limits. 7 mm cortical hypodensity lateral right kidney too small for accurate CT characterization, likely cys t. There is a 4 mm nonobstructive medial left lower pole renal calculus. Some possible additional calyce al versus vascular calcifications measuring up to 5 mm midpole left kidney. No hydronephrosis. Moderate atherosclerotic calcifications and plaque abdominal aorta and common iliac arteries. No dilated small bowel, free fluid, or free air. No mesenteric or retroperitoneal lymphadenopathy. Some surgical clips are noted in the right inguinal region probably relating to prior node dissection . Surgical clips extend to the pelvic sidewalls and prostatic bed. There is some focal 2.0 cm mural based thickening along the medial wall of the lower ascending colon, axial image 48 that can be further assessed with direct visualization when patient able to exclude n eoplasm. Scattered mild stool. Diverticulosis without acute diverticulitis. Mild circumferential bladder wall thickening. Mild perivesicular fat stranding. No abnormal fluid col lection in the pelvis or pelvic lymphadenopathy. Bones: Mild degenerative change of the hips. Facet arthropathy in the mid to lower lumbar spine. Adele re endplate deformity L1 is age indeterminate and further correlation for any pain at this level is r ecommended. Moderate degenerative disc disease L5-S1. IMPRESSION: 1. PROMINENT CIRCUMFERENTIAL THICKENING IN THE REGION OF THE DISTAL ESOPHAGUS COULD REPRESENT A MODER ATE-SIZED HIATAL HERNIA VERSUS ABNORMAL ESOPHAGEAL THICKENING. GIVEN PATIENT'S GI BLEEDING, DIRECT SUALIZATION IS RECOMMENDED. 2. POSSIBLE 2 CM MURAL BASED THICKENING ALONG THE MEDIAL WALL OF THE LOWER ASCENDING COLON. THIS COUL D REPRESENT ADHERENT STOOL. DIRECT VISUALIZATION WHEN PATIENT ABLE TO EXCLUDE NEOPLASM. 3. SIGMOID DIVERTICULOSIS WITHOUT ACUTE DIVERTICULITIS. 4. A FEW NONOBSTRUCTIVE CALCULI IN THE LEFT KIDNEY MEASURING UP TO 5 MM. A COUPLE OF THESE MAY BE ABO UT TO PASS INTO THE CALYCEAL SYSTEM. 5. PRIOR PROSTATECTOMY AND PELVIC LYMPH NODE DISSECTION. CIRCUMFERENCE OF BLADDER WALL THICKENING COU LD REPRESENT CHRONIC LATERAL HYPERTROPHY, CYSTITIS, OR POSTTREATMENT CHANGE. 6. MILD SUPERIOR ENDPLATE DEFORMITY OF L1 REPRESENTS AN AGE INDETERMINATE SUPERIOR ENDPLATE FRACTURE. CORRELATE FOR ANY FOCAL PAIN AT THIS LEVEL. 7. TRACE PLEURAL EFFUSIONS.
--- NOTE | 2020-12-16 12:13 | P.PN ---
Subjective This is a pleasant 85-year-old male past medical history significant for paroxysmal atrial fibrillation on Eliquis, myocardial infarction, coronary d isease status post PCI in 2017 (per 3-[address] Tanner), CVA/TIA, myocardial infarction, heart failure, hearing loss, glaucoma, legally blind. He follows with Dr. Wilde. We have been asked to see in consultation for elevated troponin. Patient is seen and examined at bedside, at bedside. Presents emergency department due to a fall and possible loss of consciousness at [facility]. reports that patient is in rehab at [facility] due to a previous fall and injured his back. She states the patient fell at [facility] and did lose consciousness of unknown downtime. She states he has had numerous episodes of this. She states he recently saw Dr. Wilde and there was no abnormalities or issues at this visit. The patient denies any chest pain, shortness of breath, palpitations, pain, abdominal pain, nausea, vomiting. EKG reveals atrial fibrillation, heart rate 82, Q wave in inferior leads appears to be consistent with prior infarct. Chest xray no active cardiopulmonary disease. No heart failure. 12/16/20: Patient seen and examined at bedside, no acute distress. Telemetry tracings indicate sinus mechanism HR 60-70s. No evidence of tachycardia or bradycardia . Orthostatics negative. Patient was found to have hemoglobin of 6.3, repeat 6.6. d-dimer negative. Sodium 140, potassium 3.5, BUN 24, serum creatinine 0.9, magnesium 1.8. Patient underwent CT abdomen and pelvis which revealed prominent circumferential thickening in the distal esophagus could represent a moderate size hiatal hernia versus abnormal esophageal thickening. Possible 2 cm mural based thickening along the medial wall of the lower ascending colon. Sigmoid diverticulosis without acute diverticulitis. A few nonobstructing calculi in the left kidney. Mild superior endplate deformity of L1 represents an H2 determinants superior endplate fracture. Trace pleural effusions. Plan for patient to receive 1unit PRBC. Echocardiogram revealed an EF of 5055%, mild mitral regurgitation, moderate tricuspid regurgitation, mild pulmonary hypertension. PHYSICAL EXAMINATION Blood pressure 115/64, heart rate 78, afebrile, maintaining oxygen saturation was 96% on room air. CONSTITUTIONAL: No apparent distress. Hard of hearing. Legally blind HEENT: Neck Supple. No JVD. CHEST EXAMINATION: Lungs are clear to auscultation. No chest wall tenderness is noted on palpation or with deep breathing. HEART EXAMINATION: Regular rate and rhythm. S1, S2 heard. No murmurs, gallops or rub. ABDOMEN: Soft, nontender. Positive bowel sounds. EXTREMITIES: 2+ peripheral pulses, no lower extremity edema and no calf tenderness. NEUROLOGIC EXAMINATION: Patient is awake, and alert ASSESSMENT Multiple Falls Possible syncope, unclear etiology at htis time Elevated troponin, not indicative of acute coronary syndrome, EKG with no evidence of acute ischemia Coronary artery disease status post PCI in 2017 Paroxysmal atrial fibrillation on Eliquis History of CVA/TIA History of myocardial infarction PLAN -Ok to hold Eliquis in setting of GI bleed workup -From a cardiology perspective, no further cardiac workup or testing at this time. Echocardiogram revealed an EF of 5055%, no significant wall motion abnormalities. No evidence of arrythmia, tachyarrythmia, pauses or bradycardia on telemetry. -Rest of work up per primary -Continue home cardiac medications -We will follow the patient as needed. Please reach out with further questions or concerns. Nurse Practitioner note has been reviewed, I agree with a documented findings and plan of care. Patient was seen and examined. Objective - Vital Signs Vital signs: Vital Signs Temp 99.1 F 12/16/20 04:00 Pulse 79 12/16/20 04:00 Resp 14 12/16/20 04:00 BP 115/64 12/16/20 04:00 Pulse Ox 96 12/16/20 04:00 Intake & Output 12/15/20 12/16/20 12/16/20 18:59 06:59 18:59 Intake Total 1280 240 Balance 1280 240 Weight 66.4 kg Intake: Intake, IV Titration 1040 Amount Sodium Chloride 0.9% 1, 1040 000 ml @ 130 mls/hr IV . Q7H42M [facility] Rx#:[id number] Oral 240 240 Other: Voiding Method Bedside Commode Bedside Commode Diaper Diaper # Voids 2 1 # Bowel Movements 1 - Labs CBC & Chem 7: 12/16/20 08:57 12/16/20 06:23 Labs: Abnormal Lab Results - Last 24 Hours (Table) 12/16/20 12/16/20 12/16/20 Range/Units 06:23 06:23 08:57 RBC 1.97 L 2.12 L (4.30-5.90) m/uL Hgb 6.3 L* D 6.6 L* (13.0-17.5) gm/dL Hct 19.2 L* 20.6 L (39.0-53.0) % Lymphocytes # 0.8 L 0.8 L (1.0-4.8) k/uL Chloride 114 H (98-107) mmol/L Carbon Dioxide 20 L (22-30) mmol/L BUN 24 H (9-20) mg/dL Calcium 8.3 L (8.4-10.2) mg/dL Total Protein 4.6 L (6.3-8.2) g/dL Albumin 2.5 L (3.5-5.0) g/dL Crossmatch 12/16/20 Range/Units 09:01 RBC (4.30-5.90) m/uL Hgb (13.0-17.5) gm/dL Hct (39.0-53.0) % Lymphocytes # (1.0-4.8) k/uL Chloride (98-107) mmol/L Carbon Dioxide (22-30) mmol/L BUN (9-20) mg/dL Calcium (8.4-10.2) mg/dL Total Protein (6.3-8.2) g/dL Albumin (3.5-5.0) g/dL Crossmatch See Detail
--- NOTE | 2020-12-16 14:39 | P.GSCN ---
History of Present Illness Consult date: 12/16/20 History of present illness: CHIEF COMPLAINT: Syncope Reason for consult GI bleed HISTORY OF PRESENT ILLNESS: This is a 85-year-old male who presented to the ER 2 days ago for a possible syncopal episode and weakness. Patient has had multiple falls. Patient is very hard of hearing. He is on Eliquis for his atrial fibrillation. He was evaluated by cardiology regarding elevated troponins. They felt there is no evidence of acute coronary syndrome. Today patient began to complain of right upper quadrant pain and started to have black stools. Hemoglobin dropped from 10.4-6.6. He is receiving 1 unit of blood. Patient is hypotensive. Patient has history of esophageal ulcer found on endoscopy in JuneSurgical site service consult regarding GI bleed. Patient seen and examined with Dr. love PAST MEDICAL HISTORY: Atrial Fibrillation, Heart Failure, CVA/TIA, Myocardial Infarction (LA), Syncope umbar fracture, stroke in 2017, [place] 2016, esophogeal ulcer found in scope in June 2020, kidney stone removal in 2019, glaucoma PAST SURGICAL HISTORY: History of coronary artery disease with cardiac stents MEDICATIONS: See list. ALLERGIES: See list. SOCIAL HISTORY: No illicit drug use. REVIEW OF SYSTEMS: CONSTITUTIONAL: Denies fever or chills. HEENT: Denies blurred vision, vision changes, or eye pain. Denies hemoptysis CARDIOVASCULAR: Denies chest pain or pressure. RESPIRATORY: No shortness of breath. GASTROINTESTINAL: See HPI for pertinent findings HEMATOLOGIC: Denies bleeding disorders. GENITOURINARY: Denies any blood in urine or increased urinary frequency. SKIN: Denies pruitis. Denies rash. PHYSICAL EXAM: VITAL SIGNS: Reviewed GENERAL: Well-developed in no acute distress. HEENT: No sclera icterus. Extraocular movements grossly intact. Moist buccal mucosa. Head is atraumatic, normocephalic. No nasal drainage. ABDOMEN: Soft. Nondistended. NEUROLOGIC: Alert and oriented. Cranial nerves II through XII grossly intact. LABORATORY DATA: WBC 5.6 hemoglobin 10.4 down to 6.6 platelets 334 Sodium 140 potassium 3.5 BUN 24 creatinine 0.97 LFTs normal troponins elevated Urinalysis negative COVID-19 not detected IMAGING: Computed tomography scan abdomen and pelvis prominent circumferential thickening in the region of the distal esophagus could represent a moderate size hiatal hernia versus abnormal esophageal thickening given patient's GI bleed. Direct visualization is recommended. Possible 2 cm mural based thickening along the medial wall of the lower ascending colon this could represent adherent stool. Direct visualization when patient is stable to exclude neoplasm. Sigmoid diverticulosis without acute diverticulitis. A few nonobstructive calculi in the left kidney. Prior prostatectomy and pelvic lymph node dissection. Bladder wall thickening could represent chronic lateral hypertrophy, cystitis or posttreatment change. Mild superior endplate deformity of L1 represents an age indeterminate superior endplate fracture. Trace pleural effusions. ASSESSMENT: 1. Acute GI bleed with black stools and significant drop in hemoglobin 2. Acute blood loss anemia likely due to GI bleed 3. Moderate size hiatal hernia versus abnormal esophageal thickening noted on CAT scan 4. 2 cm mural based thickening along the medial while of the lower ascending colon could represent adherent stool. Direct visualization recommended to exclude neoplasm noted on CAT scan 5. Prior history of esophageal ulcer PLAN: -Patient scheduled for EGD and colonoscopy on 12/19/[address] Love -Continue to monitor hemoglobin -Continue to monitor for any signs or symptoms of bleeding -Agree with blood transfusion for hemoglobin of 6.6 -Hold Eliquis -Continue PPI Thank you for this consultation Physician Gamma Ray Operator note has been reviewed by physician. Signing provider agrees with the documented findings, assessment, and plan of care. Past Medical History Past Medical History: Atrial Fibrillation, Heart Failure, CVA/TIA, Myocardial Infarction (LA), Syncope Additional Past Medical History / Comment(s): Lumbar fracture, stroke in 2017, [place] 2017, esophogeal ulcer found in scope in June 2020, kidney stone removal in 2019, glaucoma Last Myocardial Infarction Date:: 2017 History of Any Multi-Drug Resistant Organisms: None Reported Past Surgical History: Heart Catheterization With Stent Additional Past Surgical History / Comment(s): Heart cath with 3 stents in 2017 Past Anesthesia/Blood Transfusion Reactions: No Reported Reaction Date of Last Stent Placement:: 2017 Past Psychological History: No Psychological Hx Reported Smoking Status: Never smoker Past Alcohol Use History: None Reported Past Drug Use History: None Reported - Past Family History Mother Additional Family Medical History / Comment(s): Glaucoma Father Family Medical History: No Reported History Medications and Allergies Home Medications Medication Instructions Recorded Confirmed Type Acetaminophen Tab [Tylenol] 650 mg PO Q6H PRN 12/14/20 12/14/20 History Apixaban [Eliquis] 2.5 mg PO BID@0800,199912/14/20 12/14/20 History Ascorbic Acid [Vitamin C] 500 mg PO DAILY@0800 12/14/20 12/14/20 History Aspirin 81 mg PO DAILY@0800 12/14/20 12/14/20 History Atorvastatin [Lipitor] 20 mg PO HS 12/14/20 12/14/20 History Brinzolamide [Brinzolamide 1% 1 drop BOTH EYES BID@0800,1600 12/14/20 12/14/20 History Ophth Susp] Cholecalciferol [Vitamin D3 (25 125 mcg PO DAILY@0800 12/14/20 12/14/20 History Mcg = 1000 Iu)] Diltiazem Oral [Cardizem Oral] 30 mg PO BID@0800,199912/14/20 12/14/20 History Donepezil [Aricept] 10 mg PO HS 12/14/20 12/14/20 History Latanoprost Ophth [Xalatan 0.005%] 1 drop BOTH EYES HS 12/14/20 12/14/20 History Lidocaine [Lidoderm 5% Patch] 1 patch TRANSDERM DAILY 12/14/20 12/14/20 History Med Plus 2.0 120 ml PO BID@0800,1600 12/14/20 12/14/20 History Melatonin 5 mg PO HS PRN 12/14/20 12/14/20 History Multivitamins, Thera [Multivitamin 1 tab PO DAILY@0800 12/14/20 12/14/20 History (formulary)] Pilocarpine 1% Ophth Soln [Isopto 1 drop RIGHT EYE BID@0800,199912/14/20 12/14/20 History Carpine 1%] Timolol 0.5% Ophth Gel Forming 1 drop BOTH EYES BID@0800,199912/14/20 12/14/20 History [Timoptic-Xe 0.5% Gel Form] Zinc Sulfate [Orazinc] 220 mg PO DAILY@0800 12/14/20 12/14/20 History Allergies Allergy/AdvReac Type Severity Reaction Status Date / Time oxycodone Allergy Unknown Verified 12/14/20 22:50 Penicillins Allergy Unknown Verified 12/14/20 22:50 Surgical - Exam Vital Signs Temp Pulse Resp BP Pulse Ox 98.6 F 78 19 104/56 100 12/14/20 21:05 12/14/20 21:05 12/14/20 21:05 12/14/20 21:05 12/14/20 21:05 Results - Labs 12/16/20 08:57 12/16/20 06:23 Abnormal Lab Results - Last 24 Hours (Table) 12/16/20 12/16/20 12/16/20 Range/Units 06:23 06:23 08:57 RBC 1.97 L 2.12 L (4.30-5.90) m/uL Hgb 6.3 L* D 6.6 L* (13.0-17.5) gm/dL Hct 19.2 L* 20.6 L (39.0-53.0) % Lymphocytes # 0.8 L 0.8 L (1.0-4.8) k/uL Chloride 114 H (98-107) mmol/L Carbon Dioxide 20 L (22-30) mmol/L BUN 24 H (9-20) mg/dL Calcium 8.3 L (8.4-10.2) mg/dL Total Protein 4.6 L (6.3-8.2) g/dL Albumin 2.5 L (3.5-5.0) g/dL Crossmatch 12/16/20 Range/Units 09:01 RBC (4.30-5.90) m/uL Hgb (13.0-17.5) gm/dL Hct (39.0-53.0) % Lymphocytes # (1.0-4.8) k/uL Chloride (98-107) mmol/L Carbon Dioxide (22-30) mmol/L BUN (9-20) mg/dL Calcium (8.4-10.2) mg/dL Total Protein (6.3-8.2) g/dL Albumin (3.5-5.0) g/dL Crossmatch See Detail Diabetes panel 12/16/20 Range/Units 06:23 Sodium 140 (137-145) mmol/L Potassium 3.5 (3.5-5.1) mmol/L Chloride 114 H (98-107) mmol/L Carbon Dioxide 20 L (22-30) mmol/L BUN 24 H (9-20) mg/dL Creatinine 0.97 (0.66-1.25) mg/dL Glucose 84 (74-99) mg/dL Calcium 8.3 L (8.4-10.2) mg/dL AST 21 (17-59) U/L ALT 12 (4-49) U/L Alkaline Phosphatase 54 (38-126) U/L Total Protein 4.6 L (6.3-8.2) g/dL Albumin 2.5 L (3.5-5.0) g/dL Calcium panel 12/16/20 Range/Units 06:23 Calcium 8.3 L (8.4-10.2) mg/dL Phosphorus 3.1 (2.5-4.5) mg/dL Albumin 2.5 L (3.5-5.0) g/dL Pituitary panel 12/16/20 Range/Units 06:23 Sodium 140 (137-145) mmol/L Potassium 3.5 (3.5-5.1) mmol/L Chloride 114 H (98-107) mmol/L Carbon Dioxide 20 L (22-30) mmol/L BUN 24 H (9-20) mg/dL Creatinine 0.97 (0.66-1.25) mg/dL Glucose 84 (74-99) mg/dL Calcium 8.3 L (8.4-10.2) mg/dL Adrenal panel 12/16/20 Range/Units 06:23 Sodium 140 (137-145) mmol/L Potassium 3.5 (3.5-5.1) mmol/L Chloride 114 H (98-107) mmol/L Carbon Dioxide 20 L (22-30) mmol/L BUN 24 H (9-20) mg/dL Creatinine 0.97 (0.66-1.25) mg/dL Glucose 84 (74-99) mg/dL Calcium 8.3 L (8.4-10.2) mg/dL Total Bilirubin 0.3 (0.2-1.3) mg/dL AST 21 (17-59) U/L ALT 12 (4-49) U/L Alkaline Phosphatase 54 (38-126) U/L Total Protein 4.6 L (6.3-8.2) g/dL Albumin 2.5 L (3.5-5.0) g/dL
--- NOTE | 2020-12-16 15:44 | P.PN ---
Subjective Progress Note Date: 12/16/20 Hospital course: Patient is a very pleasant 85-year-old male with a past medical history of glaucoma (legally blind), very hard of hearing, atrial fibrillation on anticoagulation with Eliquis, hypertension, hyperlipidemia, CAD with previous NH, CHF, CVA 2017, and esophageal ulcer. Patient presented to the emergency department on 12/14/20 with a chief complaint of syncopal episode. Patient was reportedly undergoing physical therapy at [facility] when he suddenly lost consciousness. reports that therapist was able to hold patient of and he did not fall, she was unaware of the duration of his loss of consciousness, and patient reportedly had no recollection. In the emergency department, labs were completed revealing Normocytic normochromic anemia with hemoglobin of 10.4, non- anion gap metabolic acidosis with chloride of 180 carbon dioxide of 20, prerenal azotemia with BUN of 58, and elevated troponins but flat at 0.237 and 0.209 and 0.276. Urinalysis was negative for infection and Covid 19 PCR NEGATIVE. Chest x-ray normal findings negative for acute cardiopulmonary process. EKG revealing atrial fibrillation with a controlled ventricular rate of 82 bpm. Patient was admitted under our services with consultation to cardiology. Echocardiogram was completed revealing normal EF between 50 and 55% with mild to moderate aortic valve sclerosis. Physical exam: Patient seen and fully evaluated at bedside this morning. RN reports large amounts of black tarry stool and pt had significant 4g drop in hemoglobin from 10.4 down to 6.3, stat repeat CBC completed resulting of 6.6. Patient was seen and fully evaluated at bedside. He was lying on left side and reported having lower back pain. Upon assessment the patient reported tenderness to right upper quadrant with palpation. He denied chest pain, shortness of breath, or any other complaints. VSS. Discussed case with general surgeon, Dr. Gauthier whom has agreed to evaluate patient. Eliquis and Aspirin held at this time. Order placed for transfusion of 1 unit PRBCs followed by CBC every 6 hours, Protonix 40 mg IVP twice daily, consult to Gen. surgery, and CT abdomen and pelvis with and without IV contrast. Vital signs reviewed and stable. General: Nontoxic, no distress and appears stated age. Derm: Skin warm and dry, normal coloration for ethnicity . Pale Mucous membranes. Head: Atraumatic, normocephalic and symmetric. Pt very hard of hearing and legally blind. Eyes: EOMs intact, no lid lag, and anicteric sclera Mouth: no lip lesions, mucus membranes dry and pale. Cardiovascular: Irregularly irregular rhythm with normal S1S2, no murmur, positive posterior tibial pulses bilaterally, and cap refill < 2 seconds. Lungs: Respirations even, regular, and unlabored on room air. Lungs CTA bilaterally, no rhonchi, no rales, no wheezing, and no accessory muscle usage. Abdominal: Bowel sounds 4, soft, tenderness reported to right upper quadrant upon palpation, no guarding, no appreciable organomegaly Ext: ROM intact. No gross muscle atrophy, no edema, no contractures Neuro: Speech clear, face symmetrical and CN II-XII grossly intact with no noted focal neuro deficits Psych: Alert and oriented to person, place, time, and situation. Appropriate and pleasant affect. Assessment and Plan of Care: Syncope -No reports of seizure-like activity during these episodes. -Troponins elevated 0.209, 0.237, 0.276. -Telemetry monitoring -Cardiology consulted, appreciate further recommendations -Echocardiogram to be completed -Seizure precautions, fall precautions -consult physical therapy -Orthostatic vitals Acute blood loss anemia due to upper GI bleed with gross melena -significant 4g drop in hemoglobin from 10.4 down to 6.3, stat repeat CBC completed resulting of 6.6. -Eliquis and Aspirin held at this time. -Order placed for transfusion of 1 unit PRBCs followed by CBC every 6 hours, -Protonix 40 mg IVP twice daily -Consult to Gen. surgery -CT abdomen and pelvis with and without IV contrast due to lower back pain and RUQ pain with palpation. NSTEMI Atrial Fibrillation -Troponins elevated 0.209, 0.237, 0.276. -EKG revealing atrial fibrillation with a controlled ventricular rate of 82 bpm. -Telemetry monitoring -Cardiology consulted, appreciate further recommendations -Echocardiogram revealing normal EF between 50 and 55% with mild to moderate aortic valve sclerosis -Aspirin and Eliquis held due to new findings of acute blood loss anemia Hypertension Monitor vital signs and continue daily medication regimen. Hyperlipidemia Continue daily medication regimen with atorvastatin 20 mg nightly Glaucoma Continue daily medication regimen with eyedrops. Chronic low back pain Continue daily medication regimen with as needed Tylenol and lidocaine patches. Fall precautions PT consult. CODE STATUS: Full code DVT prophylaxis: SCDs Discussed with: Patient and RN Anticipated discharge date: Clinical course to determine Anticipated discharge place: Home versus back to [facility] for continued rehab A total of 45 minutes was spent on the care of this complex patient more than 50% of the time was spent in counseling and care coordination. Objective - Vital Signs Vital signs: Vital Signs Temp 99.1 F 12/16/20 04:00 Pulse 79 12/16/20 04:00 Resp 14 12/16/20 04:00 BP 115/64 12/16/20 04:00 Pulse Ox 96 12/16/20 04:00 Intake & Output 12/15/20 12/16/20 12/16/20 18:59 06:59 18:59 Intake Total 1280 Balance 1280 Weight 66.4 kg Intake: Intake, IV Titration 1040 Amount Sodium Chloride 0.9% 1, 1040 000 ml @ 130 mls/hr IV . Q7H42M [facility] Rx#:[id number] Oral 240 Other: Voiding Method Bedside Commode Bedside Commode Diaper Diaper # Voids 2 1 # Bowel Movements 1 - Labs CBC & Chem 7: 12/16/20 08:57 12/16/20 06:23 Labs: Abnormal Lab Results - Last 24 Hours (Table) 12/15/20 12/16/20 12/16/20 Range/Units 08:37 06:23 06:23 RBC 1.97 L (4.30-5.90) m/uL Hgb 6.3 L* D (13.0-17.5) gm/dL Hct 19.2 L* (39.0-53.0) % Lymphocytes # 0.8 L (1.0-4.8) k/uL Chloride 114 H (98-107) mmol/L Carbon Dioxide 20 L (22-30) mmol/L BUN 24 H (9-20) mg/dL Calcium 8.3 L (8.4-10.2) mg/dL Troponin I 0.276 H* (0.000-0.034) ng/mL Total Protein 4.6 L (6.3-8.2) g/dL Albumin 2.5 L (3.5-5.0) g/dL
[2020-12-16 18:51] LABS: Anisocytosis Slight; HCT 22.3 % (39.0-53.0); Hypochromasia Marked; MCH 29.8 pg (25.0-35.0); MCHC 30.4 g/dL (31.0-37.0); Macrocytosis Slight; Mean Platelet Volume 7.5; Platelet Count 228 k/uL (150-450); RBC 2.27 m/uL (4.30-5.90); RDW 16.3 % (11.5-15.5); WBC 4.9 k/uL (3.8-10.6)
[2020-12-16 18:52] LABS: HGB 6.8 gm/dL (13.0-17.5)
--- NOTE | 2020-12-16 20:07 | P.PN ---
Progress Note - Text Progress Note Date: 12/16/20 Images available reviewed. Full consult pending. CT demonstrates multiple levels of spondylosis, arthritic changes as well as L1 vertebral compression fracture. Appears acute in nature. There is no retropulsion noted. There is no significant stenosis due to this. There is kyphosis in the area of the fracture due to endplate collapse and wedging. Depending on pt status for pain control purposes and to prevent progression of fracture we could offer kyphoplasty. This is not ideal in setting of elliquis, but if pt would not tolerate any other forms of treatment i.e. bracing or medications we could offer this. Will discuss with pt and family.
[2020-12-16 20:43] LABS: Anisocytosis Slight; HGB 8.8 gm/dL (13.0-17.5); MCH 29.7 pg (25.0-35.0); MCHC 32.5 g/dL (31.0-37.0); Platelet Count 311 k/uL (150-450); RBC 2.96 m/uL (4.30-5.90); RDW 16.8 % (11.5-15.5); WBC 7.5 k/uL (3.8-10.6)
[2020-12-16 21:22] LABS: MCV 91.2 fL (80.0-100.0)
[2020-12-16] MEDS: DONEPEZIL 10 MG TAB PO SCH (21:48)
[2020-12-16] MEDS: ATORVASTATIN 20 MG TAB PO SCH (21:48)
[2020-12-16] MEDS: LATANOPROST 0.005% OPHTH DROPS 2.5 ML BTL BOTH EYES SCH (21:49)
[2020-12-16] MEDS: POTASSIUM CHLORIDE ER 20 MEQ TAB.ER PO SCH (21:53)
[2020-12-17] MEDS: POTASSIUM CHLORIDE ER 20 MEQ TAB.ER PO SCH (00:27)
[2020-12-17] MEDS: ACETAMINOPHEN TAB 325 MG TAB PO PRN ×3 (00:27→22:05)
[2020-12-17 03:14] LABS: Anisocytosis Slight; HCT 28.9 % (39.0-53.0); HGB 9.5 gm/dL (13.0-17.5); MCH 29.9 pg (25.0-35.0); MCHC 32.7 g/dL (31.0-37.0); MCV 91.6 fL (80.0-100.0); Mean Platelet Volume 7.5; Platelet Count 288 k/uL (150-450); Poikilocytosis Slight; RBC 3.16 m/uL (4.30-5.90); RDW 16.4 % (11.5-15.5); WBC 7.1 k/uL (3.8-10.6)
[2020-12-17 03:30] LABS: African American GFR (CKD) >90 (>60 ml/min/1.73 sqM); Anion Gap 4 mmol/L; Blood Urea Nitrogen 12 mg/dL (9-20); Calcium 8.1 mg/dL (8.4-10.2); Carbon Dioxide 19 mmol/L (22-30); Chloride 113 mmol/L (98-107); Glucose 72 mg/dL (74-99); Non-African American GFR(CKD) 80 (>60 ml/min/1.73 sqM); Sodium 136 mmol/L (137-145)
[2020-12-17] MEDS: SODIUM CHLORIDE 0.9% 1,000 ML IV SCH (06:06)
[2020-12-17 08:11] LABS: Anisocytosis Slight; HCT 29.7 % (39.0-53.0); HGB 9.6 gm/dL (13.0-17.5); Hypochromasia Slight; MCH 30.2 pg (25.0-35.0); MCHC 32.4 g/dL (31.0-37.0); MCV 93.3 fL (80.0-100.0); Mean Platelet Volume 7.5; Platelet Count 295 k/uL (150-450); Poikilocytosis Slight; RBC 3.18 m/uL (4.30-5.90); RDW 16.1 % (11.5-15.5); WBC 7.5 k/uL (3.8-10.6)
[2020-12-17] MEDS: PANTOPRAZOLE 40 MG/10 ML VIAL IV SCH ×2 (08:45→20:38)
[2020-12-17] MEDS: DILTIAZEM ORAL 30 MG TAB PO SCH ×2 (08:45→20:38)
[2020-12-17] MEDS: MULTIVITAMINS, THERA 1 EACH TAB PO SCH (08:46)
[2020-12-17] MEDS: CHOLECALCIFEROL 25 MCG (1000 IU) TABLET PO SCH (08:46)
[2020-12-17] MEDS: ASCORBIC ACID 500 MG TAB PO SCH (08:46)
[2020-12-17] MEDS: LIDOCAINE 5% PATCH TOPICAL SCH (08:46)
[2020-12-17] MEDS: PILOCARPINE 1% OPHTH DROPS 15 ML BTL RIGHT EYE SCH ×2 (08:47→20:39)
[2020-12-17] MEDS: TIMOLOL 0.5% OPHTH DROPS 5 ML BTL BOTH EYES SCH ×2 (08:47→20:39)
[2020-12-17] MEDS: DORZOLAMIDE HCL 2% DROPS 10 ML BTL BOTH EYES SCH ×2 (08:47→20:40)
--- NOTE | 2020-12-17 09:17 | P.CNOR ---
History of Present Illness - HPI Consult date: 12/17/20 Requesting physician: Justin Barker Consult reason: low back pain History of present illness: Patient is an 85-year-old male with a PMH of glaucoma (legally blind), hearing loss, A. fib on Eliquis, hypertension, hyperlipidemia, who was sent in from [facility] due to episodes of syncope. Patient is poor historian and HPI is limited and no family at bedside this morning but he states he think he may have had a fall around 1-2 weeks prior and since has had localized back pain in the mid to lower back region. He denies any other areas of pain since the fall. He states he typically uses a walker and sometimes a wheelchair. Denies any loss of bowel or bladder function. 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, kidney stone removal in 2019, glaucoma Last Myocardial Infarction Date:: 2016 History of Any Multi-Drug Resistant Organisms: None Reported Past Surgical History: Heart Catheterization With Stent Additional Past Surgical History / Comment(s): Heart cath with 3 stents in 2016 Past Anesthesia/Blood Transfusion Reactions: No Reported Reaction Date of Last Stent Placement:: 2016 Past Psychological History: No Psychological Hx Reported Smoking Status: Never smoker Past Alcohol Use History: None Reported Past Drug Use History: None Reported - Past Family History Mother Additional Family Medical History / Comment(s): Glaucoma Father Family Medical History: No Reported History Medications and Allergies Home Medications Medication Instructions Recorded Confirmed Type Acetaminophen Tab [Tylenol] 650 mg PO Q6H PRN 12/14/20 12/14/20 History Apixaban [Eliquis] 2.5 mg PO BID@0800,2000 12/14/20 12/14/20 History Ascorbic Acid [Vitamin C] 500 mg PO DAILY@0800 12/14/20 12/14/20 History Aspirin 81 mg PO DAILY@0800 12/14/20 12/14/20 History Atorvastatin [Lipitor] 20 mg PO HS 12/14/20 12/14/20 History Brinzolamide [Brinzolamide 1% 1 drop BOTH EYES BID@0800,1600 12/14/20 12/14/20 History Ophth Susp] Cholecalciferol [Vitamin D3 (25 125 mcg PO DAILY@0800 12/14/20 12/14/20 History Mcg = 1000 Iu)] Diltiazem Oral [Cardizem Oral] 30 mg PO BID@0800,199912/14/20 12/14/20 History Donepezil [Aricept] 10 mg PO HS 12/14/20 12/14/20 History Latanoprost Ophth [Xalatan 0.005%] 1 drop BOTH EYES HS 12/14/20 12/14/20 History Lidocaine [Lidoderm 5% Patch] 1 patch TRANSDERM DAILY 12/14/20 12/14/20 History Med Plus 2.0 120 ml PO BID@0800,1600 12/14/20 12/14/20 History Melatonin 5 mg PO HS PRN 12/14/20 12/14/20 History Multivitamins, Thera [Multivitamin 1 tab PO DAILY@0800 12/14/20 12/14/20 History (formulary)] Pilocarpine 1% Ophth Soln [Isopto 1 drop RIGHT EYE BID@0800,199912/14/20 12/14/20 History Carpine 1%] Timolol 0.5% Ophth Gel Forming 1 drop BOTH EYES BID@0800,199912/14/20 12/14/20 History [Timoptic-Xe 0.5% Gel Form] Zinc Sulfate [Orazinc] 220 mg PO DAILY@0800 12/14/20 12/14/20 History Allergies Allergy/AdvReac Type Severity Reaction Status Date / Time oxycodone Allergy Unknown Verified 12/14/20 22:50 Penicillins Allergy Unknown Verified 12/14/20 22:50 Physical Examination Osteopathic Statement: *. No significant issues noted on an osteopathic structural exam other than those noted in the History and Physical/Consult. - Lumbar Spine Back pain: sudden onset Tenderness with palpation: lumbar spine (Over region of L1 vertebral body.) - L Spine: dermatomal strength & reflexes bilateral Strength: hip flexion: 4/5 Strength: hip extension: 4/5 Strength: knee flexion: 4/5 Strength: knee extension: 4/5 Strength: ankle dorsiflexion: 4/5 Strength: ankle plantar flexion: 4/5 Strength: great toe flexion: 5/5 Strength: great toe extension: 5/5 Other reflexes: Babinski's: negative Nerve tests: straight leg raising tests: negative, contralateral straight leg raising tests: negative Results Imaging: CT demonstrates multiple levels of spondylosis, arthritic changes as well as L1 vertebral compression fracture. Appears acute in nature. There is no retropulsion noted. There is no significant stenosis due to this. There is kyphosis in the area of the fracture due to endplate collapse and wedging. - Labs Labs: Abnormal Lab Results - Last 24 Hours (Table) 12/16/20 12/16/20 12/16/20 Range/Units 08:57 09:01 18:35 RBC 2.12 L 2.27 L (4.30-5.90) m/uL Hgb 6.6 L* 6.8 L* (13.0-17.5) gm/dL Hct 20.6 L 22.3 L (39.0-53.0) % MCHC 30.4 L (31.0-37.0) g/dL RDW 16.3 H (11.5-15.5) % Lymphocytes # 0.8 L (1.0-4.8) k/uL Sodium (137-145) mmol/L Potassium (3.5-5.1) mmol/L Chloride (98-107) mmol/L Carbon Dioxide (22-30) mmol/L Glucose (74-99) mg/dL Calcium (8.4-10.2) mg/dL Crossmatch See Detail 12/16/20 12/16/20 12/16/20 Range/Units 18:35 20:26 20:26 RBC 2.96 L (4.30-5.90) m/uL Hgb 8.8 L D (13.0-17.5) gm/dL Hct 27.0 L (39.0-53.0) % MCHC (31.0-37.0) g/dL RDW 16.8 H (11.5-15.5) % Lymphocytes # (1.0-4.8) k/uL Sodium (137-145) mmol/L Potassium 2.5 L* 3.4 L (3.5-5.1) mmol/L Chloride (98-107) mmol/L Carbon Dioxide (22-30) mmol/L Glucose (74-99) mg/dL Calcium (8.4-10.2) mg/dL Crossmatch 12/17/20 12/17/20 12/17/20 Range/Units 02:47 02:47 07:13 RBC 3.16 L 3.18 L (4.30-5.90) m/uL Hgb 9.5 L 9.6 L (13.0-17.5) gm/dL Hct 28.9 L 29.7 L (39.0-53.0) % MCHC (31.0-37.0) g/dL RDW 16.4 H 16.1 H (11.5-15.5) % Lymphocytes # (1.0-4.8) k/uL Sodium 136 L (137-145) mmol/L Potassium (3.5-5.1) mmol/L Chloride 113 H (98-107) mmol/L Carbon Dioxide 19 L (22-30) mmol/L Glucose 72 L (74-99) mg/dL Calcium 8.1 L (8.4-10.2) mg/dL Crossmatch H & H 12/14/20 12/16/20 12/16/20 Range/Units 21:51 06:23 08:57 Hgb 10.4 L 6.3 L* D 6.6 L* (13.0-17.5) gm/dL Hct 32.1 L 19.2 L* 20.6 L (39.0-53.0) % 12/16/20 12/16/20 12/17/20 Range/Units 18:35 20:26 02:47 Hgb 6.8 L* 8.8 L D 9.5 L (13.0-17.5) gm/dL Hct 22.3 L 27.0 L 28.9 L (39.0-53.0) % 12/17/20 Range/Units 07:13 Hgb 9.6 L (13.0-17.5) gm/dL Hct 29.7 L (39.0-53.0) % Coagulation 12/14/20 Range/Units 21:51 INR 1.1 (<1.2) Result Diagrams: 12/17/20 07:13 12/17/20 02:47 Assessment and Plan Assessment: Assesment: 1.) L1 vertebral compression fracture. Age indeterminate, possibly acute base off today's exam. Plan: 1.) Case to be discussed with Dr. Barker, Depending on pt status and for pain control purposes and to prevent progression of fracture we could offer kyphoplasty if patient's pain is uncontrolled with conservative measures ie, bracing, pain medication. Further recommendations to follow pending discussion with spine surgeon. Time with Patient: Less than 30
--- NOTE | 2020-12-17 10:59 | P.PN ---
Progress Note - Text Progress Note Date: 12/17/20 Patient's hemoglobin is 9.6. He has shown no active GI bleed. His CAT scan shows evidence of esophageal thickening. On exam her lesser stable. Abdomen soft. Patient was given for EGD colonoscopy on Saturday.
[2020-12-17] MEDS ORDERED: HYDROcodone/APAP 5-325MG 1 EACH TAB PO PRN (12:10)
--- NOTE | 2020-12-17 12:46 | P.PN ---
Subjective Progress Note Date: 12/17/20 Hospital course: Patient is a very pleasant 85-year-old male with a past medical history of glaucoma (legally blind), very hard of hearing, atrial fibrillation on anticoagulation with Eliquis, hypertension, hyperlipidemia, CAD with previous [place], CHF, CVA 2017, and esophageal ulcer. Patient presented to the emergency department on 12/14/20 with a chief complaint of syncopal episode. Patient was reportedly undergoing physical therapy at [facility] when he suddenly lost consciousness. reports that therapist was able to hold patient of and he did not fall, she was unaware of the duration of his loss of consciousness, and patient reportedly had no recollection. In the emergency department, labs were completed revealing Normocytic normochromic anemia with hemoglobin of 10.4, non- anion gap metabolic acidosis with chloride of 180 carbon dioxide of 20, prerenal azotemia with BUN of 58, and elevated troponins but flat at 0.237 and 0.209 and 0.276. Urinalysis was negative for infection and Covid 19 PCR NEGATIVE. Chest x-ray normal findings negative for acute cardiopulmonary process. EKG revealing atrial fibrillation with a controlled ventricular rate of 82 bpm. Patient was admitted under our services with consultation to cardiology. Echocardiogram was completed revealing normal EF between 50 and 55% with mild to moderate aortic valve sclerosis. During hospitalization and RN reported large amounts of black tarry stool and patient had a significant 4 g drop in hemoglobin from 10.4 down to 6.3 transfusion 1 unit PRBCs was completed with repeat hemoglobin of 6.8. Patient was given an additional unit of PRBCs and hemoglobin now stabilized at 9.6. RN reports patient has had one additional episode of dark tarry stools and that pt continuously reports urge of need to defecate. CT abdomen and pelvis completed revealing prominent circumferential thickening in the region of the distal esophagus, possible 2 cm mural based thickening along the medial wall of the lower ascending colon, sigmoid diverticulosis without acute diverticulitis, a few nonobstructive colliculi in the left kidney, circumferential bladder wall thickening, mild superior endplate deformity of L1, and trace pleural effusions. General surgery was consulted and evaluated patient with plans to perform EGD and colonoscopy on Saturday morning. Orthopedic surgery also consulted as patient's pain remains uncontrolled to his lower back status post fall 2 weeks prior despite physical therapy and CT report of endplate deformity of L1. Pain medications adjusted. [facility] recommending continuation of conservative measures with pain management and plans to order LSO brace at this time... if no improvement may discuss kyphoplasty once pt is medically stable. Physical exam: Patient seen and fully evaluated at the bedside this morning. He reports continued lower back pain and again had right upper quadrant tenderness upon palpation. Patient otherwise denying any other pain or complaints including headache, lightheadedness, chest pain, palpitations, shortness of breath, nausea, vomiting, or experiencing any numbness/tingling/weakness in his extremities. Vital signs reviewed and stable. General: Nontoxic, no distress and appears stated age. Derm: Skin warm and dry, normal coloration for ethnicity Head: Atraumatic, normocephalic and symmetric. Pt very hard of hearing and legally blind. Eyes: EOMs intact, no lid lag, and anicteric sclera Mouth: no lip lesions, mucus membranes moist Cardiovascular: Irregularly irregular rhythm with normal S1S2, no murmur, positive posterior tibial pulses bilaterally, and cap refill < 2 seconds. Lungs: Respirations even, regular, and unlabored on room air. Lungs CTA bilaterally, no rhonchi, no rales, no wheezing, and no accessory muscle usage. Abdominal: Bowel sounds 4, soft, tenderness reported to right upper quadrant upon palpation, no guarding, no appreciable organomegaly Ext: ROM intact. No gross muscle atrophy, no edema, no contractures Neuro: Speech clear, face symmetrical and CN II-XII grossly intact with no noted focal neuro deficits Psych: Alert and oriented to person, place, time, and situation. Appropriate and pleasant affect. Assessment and Plan of Care: Syncope, likely multifactorial secondary to acute blood loss resulting in hypovolemia with elevated troponins -Troponins elevated 0.209, 0.237, 0.276. -Treatment of acute blood loss anemia as discussed below -Telemetry monitoring -Cardiology consulted, recommending continued medical management with no further cardiac workup or testing at this time. -Echocardiogram was completed revealing normal EF between 50 and 55% with mild to moderate aortic valve sclerosis. -Seizure precautions, fall precautions -Consult physical therapy -Orthostatic vitals Acute blood loss anemia due to upper GI bleed with gross melena -significant 4g drop in hemoglobin from 10.4 down to 6.3. Patient is currently status post transfusion of 2 units PRBCs with stable hemoglobin of 9.6. -Eliquis and Aspirin held at this time. -Continue CBC every 6 hours, -Protonix 40 mg IVP twice daily -Gen. surgery following with plans for EGD and colonoscopy Saturday. -CT abdomen and pelvis with and without IV contrast revealed prominent circumferential thickening in the region of the distal esophagus, possible 2 cm mural based thickening along the medial wall of the lower ascending colon, sigmoid diverticulosis without acute diverticulitis, a few nonobstructive colliculi in the left kidney, and circumferential bladder wall thickening. NSTEMI Atrial Fibrillation -Troponins elevated 0.209, 0.237, 0.276. -EKG revealing atrial fibrillation with a controlled ventricular rate of 82 bpm. -Telemetry monitoring -Cardiology consulted, recommending continued medical management with no further cardiac workup or testing at this time. -Echocardiogram revealing normal EF between 50 and 55% with mild to moderate aortic valve sclerosis -Aspirin and Eliquis held due to acute blood loss anemia Uncontrolled lower back pain status post fall [address] report of endplate deformity of L1. Pain medications adjusted. Tylenol, [place], and lidocaine patches. Orthospine consulted and recommending continuation of conservative measures with pain management and plans to order LSO brace at this time... if no improvement may discuss kyphoplasty once pt is medically stable. Fall precautions PT consult. Hypertension Monitor vital signs and continue daily medication regimen. Hyperlipidemia Continue daily medication regimen with atorvastatin 20 mg nightly Glaucoma Continue daily medication regimen with eyedrops. CODE STATUS: Full code DVT prophylaxis: SCDs Discussed with: Patient and RN Anticipated discharge date: Clinical course to determine Anticipated discharge place: [facility] A total of 45 minutes was spent on the care of this complex patient more than 50% of the time was spent in counseling and care coordination. Objective - Vital Signs Vital signs: Vital Signs Temp 98.9 F 12/17/20 04:00 Pulse 62 12/17/20 04:00 Resp 18 12/17/20 04:00 BP 139/71 12/17/20 04:00 Pulse Ox 99 12/17/20 04:00 Intake & Output 12/16/20 12/17/20 12/17/20 18:59 06:59 18:59 Intake Total 1150 310 Output Total 500 600 Balance 650 -290 Weight 67 kg Intake: Oral 840 Blood Product 310 310 Rc As-1 Unit 310 [id number] Rc As-1 Unit 310 [id number] Output: Urine 500 600 Other: Voiding Method Bedpan Bedpan Urinal Urinal # Voids 1 3 # Bowel Movements 2 - Labs CBC & Chem 7: 12/17/20 07:13 12/17/20 02:47 Labs: Abnormal Lab Results - Last 24 Hours (Table) 12/16/20 12/16/20 12/16/20 Range/Units 06:23 08:57 09:01 RBC 1.97 L 2.12 L (4.30-5.90) m/uL Hgb 6.3 L* D 6.6 L* (13.0-17.5) gm/dL Hct 19.2 L* 20.6 L (39.0-53.0) % MCHC (31.0-37.0) g/dL RDW (11.5-15.5) % Lymphocytes # 0.8 L 0.8 L (1.0-4.8) k/uL Sodium (137-145) mmol/L Potassium (3.5-5.1) mmol/L Chloride (98-107) mmol/L Carbon Dioxide (22-30) mmol/L Glucose (74-99) mg/dL Calcium (8.4-10.2) mg/dL Crossmatch See Detail 12/16/20 12/16/20 12/16/20 Range/Units 18:35 18:35 20:26 RBC 2.27 L 2.96 L (4.30-5.90) m/uL Hgb 6.8 L* 8.8 L D (13.0-17.5) gm/dL Hct 22.3 L 27.0 L (39.0-53.0) % MCHC 30.4 L (31.0-37.0) g/dL RDW 16.3 H 16.8 H (11.5-15.5) % Lymphocytes # (1.0-4.8) k/uL Sodium (137-145) mmol/L Potassium 2.5 L* (3.5-5.1) mmol/L Chloride (98-107) mmol/L Carbon Dioxide (22-30) mmol/L Glucose (74-99) mg/dL Calcium (8.4-10.2) mg/dL Crossmatch 12/16/20 12/17/20 12/17/20 Range/Units 20:26 02:47 02:47 RBC 3.16 L (4.30-5.90) m/uL Hgb 9.5 L (13.0-17.5) gm/dL Hct 28.9 L (39.0-53.0) % MCHC (31.0-37.0) g/dL RDW 16.4 H (11.5-15.5) % Lymphocytes # (1.0-4.8) k/uL Sodium 136 L (137-145) mmol/L Potassium 3.4 L (3.5-5.1) mmol/L Chloride 113 H (98-107) mmol/L Carbon Dioxide 19 L (22-30) mmol/L Glucose 72 L (74-99) mg/dL Calcium 8.1 L (8.4-10.2) mg/dL Crossmatch
[2020-12-17 13:02] LABS: Anisocytosis Slight; HCT 33.4 % (39.0-53.0); HGB 10.5 gm/dL (13.0-17.5); Hypochromasia Moderate; MCH 30.3 pg (25.0-35.0); MCHC 31.4 g/dL (31.0-37.0); MCV 96.6 fL (80.0-100.0); Mean Platelet Volume 7.8; Platelet Count 319 k/uL (150-450); Poikilocytosis Slight; RBC 3.45 m/uL (4.30-5.90); RDW 16.2 % (11.5-15.5); WBC 8.5 k/uL (3.8-10.6)
[2020-12-17 20:04] LABS: Anisocytosis Slight; HGB 11.4 gm/dL (13.0-17.5); MCH 30.1 pg (25.0-35.0); MCHC 32.7 g/dL (31.0-37.0); Mean Platelet Volume 7.5; Platelet Count 341 k/uL (150-450); Poikilocytosis Slight; RDW 16.4 % (11.5-15.5); WBC 8.3 k/uL (3.8-10.6)
[2020-12-17] MEDS: DONEPEZIL 10 MG TAB PO SCH (20:38)
[2020-12-17] MEDS: ATORVASTATIN 20 MG TAB PO SCH (20:38)
[2020-12-17] MEDS: LATANOPROST 0.005% OPHTH DROPS 2.5 ML BTL BOTH EYES SCH (20:40)
[2020-12-18] MEDS: ASCORBIC ACID 500 MG TAB PO SCH (08:49)
[2020-12-18] MEDS: CHOLECALCIFEROL 25 MCG (1000 IU) TABLET PO SCH (08:50)
[2020-12-18] MEDS: DILTIAZEM ORAL 30 MG TAB PO SCH ×2 (08:50→21:16)
[2020-12-18] MEDS: LIDOCAINE 5% PATCH TOPICAL SCH (08:50)
[2020-12-18] MEDS: MULTIVITAMINS, THERA 1 EACH TAB PO SCH (08:50)
[2020-12-18] MEDS: TIMOLOL 0.5% OPHTH DROPS 5 ML BTL BOTH EYES SCH ×2 (08:52→21:17)
[2020-12-18] MEDS: PANTOPRAZOLE 40 MG/10 ML VIAL IV SCH ×2 (08:52→21:16)
[2020-12-18] MEDS: PILOCARPINE 1% OPHTH DROPS 15 ML BTL RIGHT EYE SCH ×2 (08:52→21:16)
[2020-12-18] MEDS ORDERED: PEG 3350-NA SULF,BICARB,CL/KCL 4,000 ML BOTTLE PO ONE (09:00)
[2020-12-18 09:21] LABS: HCT 34.5 % (39.0-53.0); HGB 11.5 gm/dL (13.0-17.5); MCH 29.4 pg (25.0-35.0); MCHC 33.2 g/dL (31.0-37.0); MCV 88.6 fL (80.0-100.0); Mean Platelet Volume 7.5; Platelet Count 362 k/uL (150-450); Poikilocytosis Slight; WBC 9.8 k/uL (3.8-10.6)
--- NOTE | 2020-12-18 10:32 | P.PN ---
Progress Note - Text Progress Note Date: 12/18/20 Patient remained stable. His he will was 11.5. On exam vessels are stable. Soft.. Patient will undergo EGD colonoscopy tomorrow.
[2020-12-18] MEDS: DORZOLAMIDE HCL 2% DROPS 10 ML BTL BOTH EYES SCH ×2 (11:06→21:16)
--- NOTE | 2020-12-18 11:08 | P.PN ---
Subjective Progress Note Date: 12/18/20 Patient seen and examined today with at bedside. She states she still having a lot of pain in his back and is difficult for nursing to get him up due to his pain. The patient is going for scope tomorrow to investigate for GI bleed. We discussed at length different options for him given his L1 vertebral compression fracture. At this time he spends most of his days in bed. The patient is legally blind. She states it is becoming more and more sedentary over the past few weeks especially after his most recent hospitalization and now this hospitalization. She states no bowel or bladder issues no perineal issues. Objective - Vital Signs Vital signs: Vital Signs Temp 98.0 F 12/18/20 08:00 Pulse 88 12/18/20 08:00 Resp 18 12/18/20 08:00 BP 180/87 12/18/20 08:00 Pulse Ox 99 12/18/20 08:00 Intake & Output 12/17/20 12/18/20 12/18/20 18:59 06:59 18:59 Intake Total 140 0 Output Total 300 120 Balance -160 -120 0 Weight 69 kg Intake: Oral 140 0 Output: Urine 300 120 Other: Voiding Method Bedpan Bedpan Bedpan Urinal Urinal Urinal # Voids 1 1 # Bowel Movements 1 1 - Exam Patient uncooperative with exam today. He does wiggle his toes has pain with pale palpation around the L1 region. He has tenderness to palpation over the paraspinal musculature. He does not move very well in bed. He does not answer any questions currently - Labs CBC & Chem 7: 12/18/20 08:52 12/17/20 02:47 Labs: Abnormal Lab Results - Last 24 Hours (Table) 12/17/20 12/17/20 12/18/20 Range/Units 12:25 19:52 08:52 RBC 3.45 L 3.80 L 3.90 L (4.30-5.90) m/uL Hgb 10.5 L 11.4 L 11.5 L (13.0-17.5) gm/dL Hct 33.4 L 35.0 L 34.5 L (39.0-53.0) % RDW 16.2 H 16.4 H 16.0 H (11.5-15.5) % Assessment and Plan Assessment: L1 vertebral compression fracture Multiple medical comorbidities Anemia A. fib Plan: I discussed at length the different options conservative and surgical with the patient's at this time she would like to speak with her family about kyph oplasty. She is okay with us putting him on the schedule for Saturday for possible L1 vertebral compression fracture kyphoplasty and we will revisit this with her tomorrow after she has a chance to talk with her family. We also need the patient cleared by medicine and all services for this procedure. He is having a scope tomorrow to investigate for GI bleed. If the patient is on anticoagulation medication he cannot have kyphoplasty. She understood this was comfortable with that we will speak with them again tomorrow.
--- NOTE | 2020-12-18 12:19 | P.PN ---
Subjective Progress Note Date: 12/18/20 Hospital course: Patient is a very pleasant 85-year-old male with a past medical history of glaucoma (legally blind), very hard of hearing, atrial fibrillation on anticoagulation with Eliquis, hypertension, hyperlipidemia, CAD with previous MT, CHF, CVA 2017, and esophageal ulcer. Patient presented to the emergency department on 12/14/20 with a chief complaint of syncopal episode. Patient was reportedly undergoing physical therapy at [facility] when he suddenly lost consciousness. reports that therapist was able to hold patient of and he did not fall, she was unaware of the duration of his loss of consciousness, and patient reportedly had no recollection. In the emergency department, labs were completed revealing Normocytic normochromic anemia with hemoglobin of 10.4, non- anion gap metabolic acidosis with chloride of 180 carbon dioxide of 20, prerenal azotemia with BUN of 58, and elevated troponins but flat at 0.237 and 0.209 and 0.276. Urinalysis was negative for infection and Covid 19 PCR NEGATIVE. Chest x-ray normal findings negative for acute cardiopulmonary process. EKG revealing atrial fibrillation with a controlled ventricular rate of 82 bpm. Patient was admitted under our services with consultation to cardiology. Echocardiogram was completed revealing normal EF between 50 and 55% with mild to moderate aortic valve sclerosis. During hospitalization and RN reported large amounts of black tarry stool and patient had a significant 4 g drop in hemoglobin from 10.4 down to 6.3. Eliquis and aspirin held. Pt required 2 units PRBCs to obtain stabilization of hemoglobin. CT abdomen and pelvis completed revealing prominent circumferential thickening in the region of the distal esophagus, possible 2 cm mural based thickening along the medial wall of the lower ascending colon, sigmoid diverticulosis without acute diverticulitis, a few nonobstructive colliculi in the left kidney, circumferential bladder wall thickening, mild superior endplate deformity of L1, and trace pleural effusions. General surgery was consulted and evaluated patient with plans to perform EGD and colonoscopy on 12/19/20. Orthopedic surgery also consulted as patient's pain remains uncontrolled to his lower back status post fall 2 weeks prior despite physical therapy and CT report of endplate deformity of L1. Pain medications adjusted. [facility] recommending continuation of conservative measures with pain management and plans to order LSO brace at this time... if no improvement may discuss kyphoplasty once pt is medically stable. Physical exam: Patient seen and fully evaluated at the bedside this morning. He continues to have uncontrolled lower back pain and difficulty with ambulation or getting out of bed due to significant increase in pain. He is currently starting prep for colonoscopy. He denies having any other complaints or pain including headache, lightheadedness, chest pain, palpitations, shortness of breath, nausea, vomiting, or experiencing any numbness/tingling/weakness in his extremities. Order placed for K-pad in attempts to assist with gaining control over lower ba ck pain. Hemoglobin stable at 11.5. Vital signs reviewed and stable. General: Nontoxic, no distress and appears stated age. Derm: Skin warm and dry, normal coloration for ethnicity Head: Atraumatic, normocephalic and symmetric. Pt very hard of hearing and legally blind. Eyes: EOMs intact, no lid lag, and anicteric sclera Mouth: no lip lesions, mucus membranes moist Cardiovascular: Irregularly irregular rhythm with normal S1S2, no murmur, positive posterior tibial pulses bilaterally, and cap refill < 2 seconds. Lungs: Respirations even, regular, and unlabored on room air. Lungs CTA b ilaterally, no rhonchi, no rales, no wheezing, and no accessory muscle usage. Abdominal: Bowel sounds 4, soft, tenderness reported to right upper quadrant upon palpation, no guarding, no appreciable organomegaly Ext: ROM intact. No gross muscle atrophy, no edema, no contractures Neuro: Speech clear, face symmetrical and CN II-XII grossly intact with no noted focal neuro deficits Psych: Alert and oriented to person, place, time, and situation. Appropriate and pleasant affect. Assessment and Plan of Care: Syncope, likely multifactorial secondary to acute blood loss resulting in hypovolemia with elevated troponins -Troponins elevated but flat 0.209, 0.237, 0.276. -Treatment of acute blood loss anemia as discussed below -Telemetry monitoring -Cardiology consulted, recommending continued medical management with no further cardiac workup or testing at this time. -Echocardiogram was completed revealing normal EF between 50 and 55% with mild to moderate aortic valve sclerosis. -Seizure precautions, fall precautions -Consult physical therapy -Orthostatic vitals Acute blood loss anemia due to upper GI bleed with gross melena, Hgb stable -Received transfusion of 2 units PRBCs with stable hemoglobin of 11.5 at this time -Jonah daniel Aspirin held. -Protonix 40 mg IVP twice daily -Gen. surgery following with plans for EGD and colonoscopy tomorrow morning. -CT abdomen and pelvis with and without IV contrast revealed prominent circumferential thickening in the region of the distal esophagus, possible 2 cm mural based thickening along the medial wall of the lower ascending colon, sigmoid diverticulosis without acute diverticulitis, a few nonobstructive colliculi in the left kidney, and circumferential bladder wall thickening. -We will continue to monitor closely with repeat a.m. labs. NSTEMI Atrial Fibrillation -Troponins elevated 0.209, 0.237, 0.276. -EKG revealing atrial fibrillation with a controlled ventricular rate of 82 bpm. -Telemetry monitoring -Cardiology consulted, recommending continued medical management with no further cardiac workup or testing at this time. -Echocardiogram revealing normal EF between 50 and 55% with mild to moderate aortic valve sclerosis -Aspirin and Eliquis held due to acute blood loss anemia Uncontrolled lower back pain status post fall [address] report of endplate deformity of L1. Pain medications adjusted. Tylenol, [place], and lidocaine patches. Orthospine consulted and recommending continuation of conservative measures with pain management and plans to order LSO brace at this time... if no improvement may discuss kyphoplasty once pt is medically stable. Fall precautions PT consult. Hypertension Monitor vital signs and continue daily medication regimen. Hyperlipidemia Continue daily medication regimen with atorvastatin 20 mg nightly Glaucoma Continue daily medication regimen with eyedrops. CODE STATUS: Full code DVT prophylaxis: SCDs Discussed with: Patient and RN Anticipated discharge date: Clinical course to determine Anticipated discharge place: Home versus back to [facility] for continued rehab A total of 45 minutes was spent on the care of this complex patient more than 50% of the time was spent in counseling and care coordination. Objective - Vital Signs Vital signs: Vital Signs Temp 98.0 F 12/18/20 08:00 Pulse 88 12/18/20 08:00 Resp 18 12/18/20 08:00 BP 180/87 12/18/20 08:00 Pulse Ox 99 12/18/20 08:00 Intake & Output 12/17/20 12/18/20 12/18/20 18:59 06:59 18:59 Intake Total 140 0 Output Total 300 120 Balance -160 -120 0 Weight 69 kg Intake: Oral 140 0 Output: Urine 300 120 Other: Voiding Method Bedpan Bedpan Bedpan Urinal Urinal Urinal # Voids 1 1 # Bowel Movements 1 1 - Labs CBC & Chem 7: 12/18/20 08:52 12/17/20 02:47 Labs: Abnormal Lab Results - Last 24 Hours (Table) 12/17/20 12/17/20 12/18/20 Range/Units 12:25 19:52 08:52 RBC 3.45 L 3.80 L 3.90 L (4.30-5.90) m/uL Hgb 10.5 L 11.4 L 11.5 L (13.0-17.5) gm/dL Hct 33.4 L 35.0 L 34.5 L (39.0-53.0) % RDW 16.2 H 16.4 H 16.0 H (11.5-15.5) %
[2020-12-18 12:20] LABS: Glucose,Whole Blood 98 mg/dL (75-99)
[2020-12-18 20:14] LABS: Glucose,Whole Blood 98 mg/dL (75-99)
[2020-12-18] MEDS: DONEPEZIL 10 MG TAB PO SCH (21:16)
[2020-12-18] MEDS: ATORVASTATIN 20 MG TAB PO SCH (21:16)
[2020-12-18] MEDS: LATANOPROST 0.005% OPHTH DROPS 2.5 ML BTL BOTH EYES SCH (21:17)
[2020-12-19 06:35] LABS: Glucose,Whole Blood 71 mg/dL (75-99)
[2020-12-19 09:00] LABS: HCT 32.8 % (39.0-53.0); HGB 10.6 gm/dL (13.0-17.5); Hypochromasia Slight; MCHC 32.3 g/dL (31.0-37.0); MCV 92.9 fL (80.0-100.0); Mean Platelet Volume 7.7; Platelet Count 333 k/uL (150-450); RBC 3.54 m/uL (4.30-5.90); RDW 15.3 % (11.5-15.5); WBC 6.7 k/uL (3.8-10.6)
--- NOTE | 2020-12-19 09:05 | P.PN ---
Subjective Progress Note Date: 12/19/20 Hospital course: Patient is a very pleasant 85-year-old male with a past medical history of glaucoma (legally blind), very hard of hearing, atrial fibrillation on anticoagulation with Eliquis, hypertension, hyperlipidemia, CAD with previous [place], CHF, CVA 2017, and esophageal ulcer. Patient presented to the emergency department on 12/14/20 with a chief complaint of syncopal episode. Patient was reportedly undergoing physical therapy at [facility] when he suddenly lost consciousness. reports that therapist was able to hold patient of and he did not fall, she was unaware of the duration of his loss of consciousness, and patient reportedly had no recollection. In the emergency department, labs were completed revealing Normocytic normochromic anemia with hemoglobin of 10.4, non- anion gap metabolic acidosis with chloride of 180 carbon dioxide of 20, prerenal azotemia with BUN of 58, and elevated troponins but flat at 0.237 and 0.209 and 0.276. Urinalysis was negative for infection and Covid 19 PCR NEGATIVE. Chest x-ray normal findings negative for acute cardiopulmonary process. EKG revealing atrial fibrillation with a controlled ventricular rate of 82 bpm. Patient was admitted under our services with consultation to cardiology. Echocardiogram was completed revealing normal EF between 50 and 55% with mild to moderate aortic valve sclerosis. During hospitalization and RN reported large amounts of black tarry stool and patient had a significant 4 g drop in hemoglobin from 10.4 down to 6.3. Eliquis and aspirin held. Pt required 2 units PRBCs to obtain stabilization of hemoglobin. CT abdomen and pelvis completed revealing prominent circumferential thickening in the region of the distal esophagus, possible 2 cm mural based thickening along the medial wall of the lower ascending colon, sigmoid diverticulosis without acute diverticulitis, a few nonobstructive colliculi in the left kidney, circumferential bladder wall thickening, mild superior endplate deformity of L1, and trace pleural effusions. General surgery was consulted and evaluated patient with plans to perform EGD and colonoscopy on 12/19/20. Orthopedic surgery also consulted as patient's pain remains uncontrolled to his lower back status post fall 2 weeks prior despite physical therapy and CT report of endplate deformity of L1. Pain medications adjusted. [facility] recommending continuation of conservative measures with pain management and plans to order LSO brace at this time... if no improvement may discuss kyphoplasty once pt is medically stable. Physical exam: Patient seen and fully evaluated at the bedside this morning. also had bedside. Patient preparing to go down for EGD and colonoscopy later this morning with Dr. Gauthier. Hemoglobin remained stable at 10.6. Patient does report continued lower back pain but denies any other complaints at this time. No further episodes of melena reported. Vital signs reviewed and stable. General: Nontoxic, no distress and appears stated age. Very thin and frail. Derm: Skin warm and dry, normal coloration for ethnicity Head: Atraumatic, normocephalic and symmetric. Pt very hard of hearing and legally blind. Eyes: EOMs intact, no lid lag, and anicteric sclera Mouth: no lip lesions, mucus membranes moist Cardiovascular: Irregularly irregular rhythm with normal S1S2, no murmur, positive posterior tibial pulses bilaterally, and cap refill < 2 seconds. Lungs: Respirations even, regular, and unlabored on room air. Lungs CTA bilaterally, no rhonchi, no rales, no wheezing, and no accessory muscle usage. Abdominal: Bowel sounds 4, soft, no tenderness reported today upon palpation, no guarding, no appreciable organomegaly Ext: ROM intact. No gross muscle atrophy, no edema, no contractures Neuro: Speech clear, face symmetrical and CN II-XII grossly intact with no noted focal neuro deficits Psych: Alert and oriented to person, place, time, and situation. Appropriate and pleasant affect. Assessment and Plan of Care: Syncope, likely multifactorial secondary to acute blood loss resulting in hypovolemia with elevated troponins -Troponins elevated but flat 0.209, 0.237, 0.276. -Treatment of acute blood loss anemia as discussed below -Telemetry monitoring -Cardiology consulted, recommending continued medical management with no further cardiac workup or testing at this time. -Echocardiogram was completed revealing normal EF between 50 and 55% with mild to moderate aortic valve sclerosis. -Seizure precautions, fall precautions -Consult physical therapy -Orthostatic vitals Acute blood loss anemia due to upper GI bleed with gross melena, Hgb stable -Received transfusion of 2 units PRBCs with stable hemoglobin of 11.5 at this time -Eliquis and Aspirin held. -Protonix 40 mg IVP twice daily -Gen. surgery following with plans for EGD and colonoscopy later this morning. -CT abdomen and pelvis with and without IV contrast revealed prominent circumferential thickening in the region of the distal esophagus, possible 2 cm mural based thickening along the medial wall of the lower ascending colon, s igmoid diverticulosis without acute diverticulitis, a few nonobstructive colliculi in the left kidney, and circumferential bladder wall thickening. -We will continue to monitor closely with repeat a.m. labs. NSTEMI Atrial Fibrillation -Troponins elevated 0.209, 0.237, 0.276. -EKG revealing atrial fibrillation with a controlled ventricular rate of 82 bpm. -Telemetry monitoring -Cardiology consulted, recommending continued medical management with no further cardiac workup or testing at this time. -Echocardiogram revealing normal EF between 50 and 55% with mild to moderate aortic valve sclerosis -Aspirin and Eliquis held due to acute blood loss anemia Uncontrolled lower back pain status post fall [address] report of endplate deformity of L1. Pain medications adjusted. Tylenol, [place], and lidocaine patches. Orthospine consulted and recommending continuation of conservative measures with pain management and plans to order LSO brace at this time... if no improvement may discuss kyphoplasty once pt is medically stable. Fall precautions PT consult. Hypertension Monitor vital signs and continue daily medication regimen. Hyperlipidemia Continue daily medication regimen with atorvastatin 20 mg nightly Glaucoma Continue daily medication regimen with eyedrops. CODE STATUS: Full code DVT prophylaxis: SCDs Discussed with: Patient and RN Anticipated discharge date: Clinical course to determine Anticipated discharge place: [facility] A total of 45 minutes was spent on the care of this complex patient more than 50% of the time was spent in counseling and care coordination. Objective - Vital Signs Vital signs: Vital Signs Temp 98.2 F 12/19/20 04:00 Pulse 61 12/19/20 04:00 Resp 18 12/19/20 04:00 BP 139/72 12/19/20 04:00 Pulse Ox 100 12/19/20 04:00 Intake & Output 12/18/20 12/19/20 12/19/20 18:59 06:59 18:59 Intake Total 0 Output Total 3 300 Balance -3 -300 Intake: Oral 0 Output: Urine 300 Stool 3 Other: Voiding Method Bedpan Bedpan Urinal Urinal # Voids 1 # Bowel Movements 2 4 - Labs CBC & Chem 7: 12/19/20 08:05 12/19/20 08:05 Labs: Abnormal Lab Results - Last 24 Hours (Table) 12/18/20 12/19/20 12/19/20 Range/Units 08:52 06:13 08:05 RBC 3.90 L 3.54 L (4.30-5.90) m/uL Hgb 11.5 L 10.6 L (13.0-17.5) gm/dL Hct 34.5 L 32.8 L (39.0-53.0) % RDW 16.0 H (11.5-15.5) % POC Glucose (mg/dL) 71 L (75-99) mg/dL
[2020-12-19 09:14] LABS: African American GFR (CKD) >90 (>60 ml/min/1.73 sqM); Anion Gap 8 mmol/L; Blood Urea Nitrogen 7 mg/dL (9-20); Calcium 8.9 mg/dL (8.4-10.2); Carbon Dioxide 22 mmol/L (22-30); Chloride 107 mmol/L (98-107); Glucose 64 mg/dL (74-99); Magnesium 1.8 mg/dL (1.6-2.3); Non-African American GFR(CKD) 79 (>60 ml/min/1.73 sqM); Potassium 3.8 mmol/L (3.5-5.1); Sodium 137 mmol/L (137-145)
[2020-12-19] MEDS: PANTOPRAZOLE 40 MG/10 ML VIAL IV SCH ×2 (10:17→20:01)
[2020-12-19] MEDS: PILOCARPINE 1% OPHTH DROPS 15 ML BTL RIGHT EYE SCH ×2 (10:18→20:02)
[2020-12-19] MEDS: TIMOLOL 0.5% OPHTH DROPS 5 ML BTL BOTH EYES SCH ×2 (10:19→20:03)
[2020-12-19] MEDS: LIDOCAINE 5% PATCH TOPICAL SCH (10:19)
[2020-12-19] MEDS: DORZOLAMIDE HCL 2% DROPS 10 ML BTL BOTH EYES SCH ×2 (10:19→20:02)
[2020-12-19 11:31] LABS: Glucose,Whole Blood 70 mg/dL (75-99)
[2020-12-19] MEDS ORDERED: LACTATED RINGERS 1,000 ML IV ONE (12:02)
[2020-12-19] MEDS ORDERED: LIDOCAINE 1% INJ 10MG/ML (20 ML MDV) ONE (12:02)
[2020-12-19] MEDS ORDERED: PROPOFOL 10 MG/ML 20 ML VIAL IV ONE (12:02)
--- NOTE | 2020-12-19 12:31 | P.OP ---
Date of Procedure: 12/19/20 Preoperative Diagnosis: GI bleed GERD Postoperative Diagnosis: Antral gastritis Esophagitis Small hiatal hernia Right colon mass Procedure(s) Performed: EGD Colonoscopy Anesthesia: MAC Surgeon: Dayron Gauthier Pathology: other (Antrum, esophagus, right colon) Condition: stable Disposition: PACU Description of Procedure: Patient's placed on the endoscopy table in the lateral position. He received IV sedation. The gastroscope placed oropharynx passed in the esophagus into the stomach. Scope was removed the pylorus. The first and second portion appeared normal. The scope was back the antrum was mildly inflamed. A biopsies performed. Scope was unretroflexed and remainder of the stomach appeared normal. There was a small hiatal hernia. The GE junction was at 38 cm. The distal esophagus inflamed. A biopsies performed. The proximal esophagus. The patient. Next digital rectal exam was performed which revealed a few internal hemorrhoids. Flexible colonoscope was then placed patient anus and passed throughout the entire colon. The ileocecal valve visualized. The cecum appeared normal. In the right colon there was a mass seen. This was biopsied. The mass was friable in using. The distal descending colon appeared normal. The transverse colon appeared normal. In the descending; was mild diverticular changes. Scope summer back the rectum and this appeared normal. Scope Patient. His resume the patient's GI bleed was due to esophagitis and the right colon mass.
[2020-12-19] MEDS: ACETAMINOPHEN TAB 325 MG TAB PO PRN ×2 (12:53→20:01)
[2020-12-19] MEDS: MULTIVITAMINS, THERA 1 EACH TAB PO SCH (12:53)
[2020-12-19] MEDS: DILTIAZEM ORAL 30 MG TAB PO SCH ×2 (12:53→20:01)
[2020-12-19] MEDS: ASCORBIC ACID 500 MG TAB PO SCH (12:53)
[2020-12-19] MEDS: CHOLECALCIFEROL 25 MCG (1000 IU) TABLET PO SCH (12:53)
--- NOTE | 2020-12-19 15:34 | P.PN ---
Subjective Progress Note Date: 12/19/20 Principal diagnosis: L1 vertebral compression fracture, GI bleed Patient was examined today bedside, he was sleeping in his hospital bed. Patient's was present today. Patient did undergo an endoscopy with general surgery today, there was presence of a right-sided colon mass. I was actually able to speak with a general surgeon briefly regarding this, there is high mohamud rn for cancer. Awaiting pathology report at this time. Discussed with nursing patient's current condition, she states that earlier this morning he was in severe pain in his back with movement in bed. Patient's stated that he was able to get up with therapy today briefly. Objective - Vital Signs Vital signs: Vital Signs Temp 97.6 F 12/19/20 13:24 Pulse 59 L 12/19/20 13:24 Resp 18 12/19/20 13:24 BP 131/61 12/19/20 13:24 Pulse Ox 93 L 12/19/20 13:24 Intake & Output 12/18/20 12/19/20 12/19/20 18:59 06:59 18:59 Intake Total 0 150 Output Total 3 300 Balance -3 -300 150 Intake: IV 150 Oral 0 Output: Urine 300 Stool 3 Other: Voiding Method Bedpan Bedpan Bedpan Urinal Urinal Urinal # Voids 1 1 # Bowel Movements 2 4 1 - Exam Exam is very limited due to patient's current medical state. He continues to demonstrate discomfort in the lumbar spine with palpation midline and paraspinal region. Range of motion of the lower extremities also reproduces discomfort in the low back. - Labs CBC & Chem 7: 12/19/20 08:05 12/19/20 08:05 Labs: Abnormal Lab Results - Last 24 Hours (Table) 12/19/20 12/19/20 12/19/20 Range/Units 06:13 08:05 08:05 RBC 3.54 L (4.30-5.90) m/uL Hgb 10.6 L (13.0-17.5) gm/dL Hct 32.8 L (39.0-53.0) % BUN 7 L (9-20) mg/dL Glucose 64 L (74-99) mg/dL POC Glucose (mg/dL) 71 L (75-99) mg/dL 12/19/20 Range/Units 11:29 RBC (4.30-5.90) m/uL Hgb (13.0-17.5) gm/dL Hct (39.0-53.0) % BUN (9-20) mg/dL Glucose (74-99) mg/dL POC Glucose (mg/dL) 70 L (75-99) mg/dL Assessment and Plan Assessment: L1 vertebral compression fracture Anemia GI bleed Right colon mass Other medical comorbidities Plan: I was able to discuss with the patient's today at bedside our current treatment recommendations. Patient is tentatively scheduled for a kyphoplasty o f the L1 vertebral body on 12/20/2020 I have a high suspicion that utilizing an LSO brace will be difficult for the patient, and if he requires more general surgery, it is likely that the compression fracture will continue to assess symptoms and make it difficult for the rehabilitation process. Patient's was made aware that Dr. Barker would be available the morning of 12/20/2020 to finalize and discuss treatment Other medical case worker and recommendations are appreciated for clearance NPO diet will be placed after midnight on 12/19/2020 Further recommendations to follow Time with Patient: Less than 30
[2020-12-19] MEDS: ATORVASTATIN 20 MG TAB PO SCH (20:01)
[2020-12-19] MEDS: DONEPEZIL 10 MG TAB PO SCH (20:01)
[2020-12-19] MEDS: LATANOPROST 0.005% OPHTH DROPS 2.5 ML BTL BOTH EYES SCH (20:02)
[2020-12-20] MEDS ORDERED: fentaNYL (PF) 50 MCG/ML 2 ML AMP IV PRN (07:33)
[2020-12-20] MEDS ORDERED: LIDOCAINE 1% (10MG/ML) FOR IV START INTRADERMA PRN (07:33)
[2020-12-20] MEDS ORDERED: ONDANSETRON 4 MG/2 ML VIAL IVP ONE (07:33)
[2020-12-20] MEDS: PANTOPRAZOLE 40 MG/10 ML VIAL IV SCH ×2 (08:16→20:09)
[2020-12-20] MEDS: LIDOCAINE 5% PATCH TOPICAL SCH (08:16)
[2020-12-20] MEDS: CHOLECALCIFEROL 25 MCG (1000 IU) TABLET PO SCH (08:17)
[2020-12-20] MEDS: MULTIVITAMINS, THERA 1 EACH TAB PO SCH (08:17)
[2020-12-20] MEDS: ASCORBIC ACID 500 MG TAB PO SCH (08:17)
[2020-12-20] MEDS: DILTIAZEM ORAL 30 MG TAB PO SCH ×2 (08:17→20:09)
[2020-12-20] MEDS: DORZOLAMIDE HCL 2% DROPS 10 ML BTL BOTH EYES SCH ×2 (08:18→20:14)
[2020-12-20] MEDS: PILOCARPINE 1% OPHTH DROPS 15 ML BTL RIGHT EYE SCH ×2 (08:18→20:14)
[2020-12-20] MEDS: TIMOLOL 0.5% OPHTH DROPS 5 ML BTL BOTH EYES SCH ×2 (08:19→20:15)
[2020-12-20] MEDS: LACTATED RINGERS 1,000 ML IV SCH (08:35)
--- NOTE | 2020-12-20 11:06 | CDI ---
Documentation Clarification Form Date: 12/20/2020 10:14:38 AM From: Kathleen Gifford RN, CCDS Admit Date: 12/15/2020 12:27:00 AM Patient Name: Niranjan Loza Visit Number: [id number] Discharge Date: ATTENTION: The Clinical Documentation Specialists (CDI) and [facility] Coding Staff appreciate your assistance in clarifying documentation. Please respond to the clarification below the line at the bottom and electronically sign. The CDI & [facility] Coding staff will review the response and follow-up if needed. Please note: Queries are made part of the Legal Health Record. If you have any questions, please contact the author of this message via ITS. Dr. Allison Milligan Conflicting documentation has been found in the medical record. As attending physician, please provide clarification. 12/15/20 H/P and subsequent documentation has NSTEMI troponins elevated 0.029.0.237, 0.276. Troponins are flat and not necessarily indicative of a non- STMI. Echocardiogram without signs of hypokinesis. Severely enlarged right ventricle. 12/15/20 Cardiology: Elevated troponin, not indicative of acute coronary syndrome, EKG with no evidence of acute ischemia 12/14/20 ED evaluation: severe weakness. Patient does non-ST elevated VT with syncopal episode. History/Risk Factors: Myocardial infarction, Coronary artery disease, chronic persistent atrial fibrillation, CVA, Heart failure, Atrial Fibrillation Clinical Indicators: 85-year-old male present for evaluation of possible syncopal episode and weakness. He denies chest pain. 12/14 vital signs: 104/56 78 9 98.6 100% RA 12/14 Labs: WBC 8.6, HGB 10.4, HCT 32.1, and Troponin 0.029 12/16 HGB 6.3, HCT 19.2 12/15 EKG: Atrial fibrillation with competing junctional pacemaker Treatment: Telemetry monitoring Heparin drip (12/15 DC) Echocardiogram: Overall left ventricular systolic function is low-normal with, an EF between 50-55 % the right ventricle is severely enlarged. Cardizem HC 30 MG PO BID ASA 81 MG PO Daily Lipitor 20MG PO HS Eliquis 2.5 MG PO BID Please clarify which diagnosis is most appropriate: [ ] NSTEMI, ruled in and POA [ ] NSTEMI Ruled out [ X ] Type 2 VT secondary to acute blood loss anemia [ ] Other (please specify) [ ] Unable to determine (Template Last Revised: April 2020) MTDD
--- NOTE | 2020-12-20 13:10 | P.PN ---
Subjective Progress Note Date: 12/20/20 CHIEF COMPLAINT: GI bleed HISTORY OF PRESENT ILLNESS: Patient is status post EGD and colonoscopy revealing antral gastritis, esophagitis, small hiatal hernia and right colon mass. Patient is scheduled for L1 kyphoplasty today with orthopedic service. Afebrile. WBC 6.7 hemoglobin 10.6 yesterday Patient seen and examined with Dr. love PHYSICAL EXAM: VITAL SIGNS: Reviewed. GENERAL: Well-developed in no acute distress. HEENT: No sclera icterus. Extraocular movements grossly intact. Moist buccal mucosa. Head is atraumatic, normocephalic. ABDOMEN: Soft. Nondistended. Nontender. NEUROLOGIC: Alert and oriented. Cranial nerves II through XII grossly intact. ASSESSMENT: 1. Acute GI bleed with acute blood loss anemia likely due to right colon mass PLAN: -Await pathology results on colon mass -Continue to monitor hemoglobin -Continue to monitor any signs or symptoms of bleeding -Patient is going to require surgical intervention for colon mass -Discussed case with medicine service Physician [place] note has been reviewed by physician. Signing provider agrees with the documented findings, assessment, and plan of care. Objective - Vital Signs Vital signs: Vital Signs Temp 98.9 F 12/20/20 08:15 Pulse 58 L 12/20/20 08:15 Resp 16 12/20/20 08:15 BP 118/53 12/20/20 08:15 Pulse Ox 95 12/20/20 08:15 Intake & Output 12/19/20 12/20/20 12/20/20 18:59 06:59 18:59 Intake Total 150 10 Balance 150 10 Intake: IV 150 10 0.9 10 Other: Voiding Method Bedpan Bedpan Bedpan Urinal Urinal Urinal # Voids 1 1 # Bowel Movements 0 1 - Labs CBC & Chem 7: 12/19/20 08:05 12/19/20 08:05
--- NOTE | 2020-12-20 13:22 | P.PN ---
Subjective Patient was seen and evaluated today. His at bedside. They are aware of the colonoscopy findings and awaiting pathology report. Patient is complaining of back pain. No acute events overnight reported by nursing staff. Objective - Vital Signs Vital signs: Vital Signs Temp 98.9 F 12/20/20 08:15 Pulse 58 L 12/20/20 08:15 Resp 16 12/20/20 08:15 BP 118/53 12/20/20 08:15 Pulse Ox 95 12/20/20 08:15 Intake & Output 12/19/20 12/20/20 12/20/20 18:59 06:59 18:59 Intake Total 150 10 Balance 150 10 Intake: IV 150 10 0.9 10 Other: Voiding Method Bedpan Bedpan Bedpan Urinal Urinal Urinal # Voids 1 1 # Bowel Movements 0 1 - Exam General: The patient is awake and alert, in no distress Eye: there is normal conjunctiva bilaterally. Neck: The neck is supple, there is no JVD. Cardiovascular: Normal S1-S2, no S3-S4, no murmurs. Respiratory: Lungs clear to auscultation bilaterally Gastrointestinal: Abdomen is soft, nontender Musculoskeletal: There is no pedal edema. Neurological:. Speech is normal. Skin: Skin is warm and dry - Labs CBC & Chem 7: 12/19/20 08:05 12/19/20 08:05 Assessment and Plan Assessment: Patient is a very pleasant 85-year-old male with a past medical history of glaucoma (legally blind), very hard of hearing, atrial fibrillation on anticoagulation with Eliquis, hypertension, hyperlipidemia, CAD with previous [place], CHF, CVA 2016, and esophageal ulcer. Patient presented to the emergency department on 12/14/20 with a chief complaint of syncopal episode. Patient was reportedly undergoing physical therapy at [facility] when he suddenly lost consciousness. In the emergency department, labs were completed revealing Normocytic normochromic anemia with hemoglobin of 10.4, non-anion gap metabolic acidosis with chloride of 180 carbon dioxide of 20, prerenal azotemia with BUN of 58, and elevated troponins but flat at 0.237 and 0.209 and 0.276. Urinalysis was negative for infection and Covid 19 PCR NEGATIVE. Chest x-ray normal findings negative for acute cardiopulmonary process. EKG revealing atrial fibrillation with a controlled ventricular rate of 82 bpm. Patient was admitted under our services with consultation to cardiology. Echocardiogram was completed revealing normal EF between 50 and 55% with mild to moderate aortic valve sclerosis. During hospitalization and RN reported large amounts of black tarry stool and patient had a significant 4 g drop in hemoglobin from 10.4 down to 6.3. Eliquis and aspirin held. Pt required 2 units PRBCs to obtain stabilization of hemoglobin. CT abdomen and pelvis completed revealing prominent circumferential thickening in the region of the distal esophagus, possible 2 cm mural based thickening along the medial wall of the lower ascending colon, sigmoid di verticulosis without acute diverticulitis, a few nonobstructive colliculi in the left kidney, circumferential bladder wall thickening, mild superior endplate deformity of L1, and trace pleural effusions. General surgery was consulted and evaluated patient with plans to perform EGD and colonoscopy on 12/19/20. Colonoscopy showed right colon mass highly concerning for malignancy. Orthopedic surgery also consulted as patient's pain remains uncontrolled to his lower back status post fall 2 weeks prior despite physical therapy and CT report of endplate deformity of L1. Pain medications adjusted. Orthospine recommending continuation of conservative measures with pain management and plans to order LSO brace at this time. if no improvement may discuss kyphoplasty once pt is medically stable. Assessment and Plan of Care: Syncope, likely multifactorial secondary to acute blood loss resulting in hypovolemia with elevated troponins Elevated troponin secondary to non-thrombotic troponin leak, hypotension, and acute blood loss anemia -Cardiology consulted, recommending continued medical management with no further cardiac workup or testing at this time. -Echocardiogram was completed revealing normal EF between 50 and 55% with mild to moderate aortic valve sclerosis. -Consult physical therapy Acute blood loss anemia due to GI bleed with gross melena, Hgb stable Right colon mass -Received transfusion of 2 units PRBCs w -Eliquis and Aspirin held. -Protonix 40 mg IVP twice daily -EGD showing gastritis and esophagitis, colonoscopy showing a right colonic mass highly concerning for malignancy awaiting pathology -CT abdomen and pelvis with and without IV contrast revealed prominent circumferential thickening in the region of the distal esophagus, possible 2 cm mural based thickening along the medial wall of the lower ascending colon, sigmoid diverticulosis without acute diverticulitis, a few nonobstructive colliculi in the left kidney, and circumferential bladder wall thickening. Atrial Fibrillation -Heart rate well controlled -Aspirin and Eliquis held due to acute blood loss anemia Uncontrolled lower back pain status post fall [address] report of endplate deformity of L1. Pain medications adjusted. Orthospine consulted and recommending continuation of conservative measures with pain management and plans to order LSO brace at this time... if no improvement may discuss kyphoplasty once pt is medically stable. Fall precautions PT consult. Hypertension Monitor vital signs and continue daily medication regimen. Hyperlipidemia Continue daily medication regimen with atorvastatin 20 mg nightly Glaucoma Continue daily medication regimen with eyedrops. CODE STATUS: Full code DVT prophylaxis: SCDs Discussed with: Patient and RN Anticipated discharge date: Clinical course to determine Anticipated discharge place: [facility] A total of 45 minutes was spent on the care of this complex patient more than 50% of the time was spent in counseling and care coordination.
--- NOTE | 2020-12-20 13:38 | P.PN ---
Progress Note - Text Progress Note Date: 12/20/20 Diagnosis : L1 vertebral compression fracture; right sided colon mass I did talk with nurse who said that Dr. Gauthier talked to and told her that she should wait on kyphoplasty until results from colon biopsy are back. Nurse said the elects to wait on back surgery at this point. Nurse mentions that the and patient still refusing and that patient sat up at bedside for over lower and denied pain. I did discuss this with at bedside and mentions that patient sat up in chair for one and half hours and he did not complain of being in much pain. She said he had not done that in several days. She says she would like to wait for the biopsy results to come back from colonoscopy before deciding on potential kyphoplasty at L1. Plan: 1. L1 vertebral compression fracture - surgery has been withheld for today. Patient's would like to wait on results from biopsies colonoscopy performed yesterday, 12/19/2020. At this time we will treat L1 compression fracture conservatively with pain control. We will continue to follow patient while in hospital 2. Appreciate medical management; appreciate general surgery management - awaiting biopsy results from lower endoscopy 3. Pain management - Stryker; Tylenol 4. GI prophylaxis - Protonix 5. DVT prophylaxis - mechanical 6. PT/OT - weightbearing as tolerated with walker for assistance
[2020-12-20] MEDS: DONEPEZIL 10 MG TAB PO SCH (20:09)
[2020-12-20] MEDS: ATORVASTATIN 20 MG TAB PO SCH (20:09)
[2020-12-20] MEDS: LATANOPROST 0.005% OPHTH DROPS 2.5 ML BTL BOTH EYES SCH (20:15)
[2020-12-21] MEDS: LACTATED RINGERS 1,000 ML IV SCH (05:58)
[2020-12-21 08:07] LABS: Basophils % (A) 0 %; Eosinophils # (A) 0.2 k/uL (0-0.7); Eosinophils % (A) 2 %; HGB 10.1 gm/dL (13.0-17.5); Hypochromasia Slight; Lymphocytes # (A) 0.8 k/uL (1.0-4.8); Lymphocytes % (A) 10 %; MCH 29.1 pg (25.0-35.0); MCHC 31.5 g/dL (31.0-37.0); MCV 92.5 fL (80.0-100.0); Mean Platelet Volume 7.7; Monocytes # (A) 0.6 k/uL (0-1.0); Monocytes % (A) 7 %; Neutrophils # (A) 5.9 k/uL (1.3-7.7); Neutrophils % (A) 78 %; Platelet Count 372 k/uL (150-450); RBC 3.46 m/uL (4.30-5.90); WBC 7.6 k/uL (3.8-10.6)
[2020-12-21] MEDS: DORZOLAMIDE HCL 2% DROPS 10 ML BTL BOTH EYES SCH ×2 (08:08→20:34)
[2020-12-21 08:22] LABS: Calcium 8.5 mg/dL (8.4-10.2); Potassium 3.4 mmol/L (3.5-5.1)
[2020-12-21] MEDS: TIMOLOL 0.5% OPHTH DROPS 5 ML BTL BOTH EYES SCH ×2 (08:26→20:33)
[2020-12-21] MEDS: PILOCARPINE 1% OPHTH DROPS 15 ML BTL RIGHT EYE SCH ×2 (08:26→20:34)
--- NOTE | 2020-12-21 08:26 | P.PN ---
Progress Note - Text Progress Note Date: 12/21/20 [facility] Progress Note SUBJECTIVE: Patient resting comfortably in bed not able to answer many questions. is not at bedside at this time. No acute events overnight OBJECTIVE: Patient is awake and alert not oriented does not complain of pain at this time Motor Exam: Moving all 4 extremities appropriately no focal deficits patient does not cooperate well with exam Reflexes: 2/4 in UE and LE b/l SILT C5-T1 and L2-S1 Dermatomal deficit: None +distal pulses palpable Negative hoffmans b/l Negative babinski b/l No clonus ASSESSMENT: L1 vertebral compression fracture Recent evaluation for pathologic colonic process PLAN: 1. Continue conservative management 2. And control as needed 3. PT/OT, OK for up and about. No BLTs. No lifting >5lbs 4. TEDs, SCDs, Early ambulation 5. Can wait for biopsy or follow-up outpatient for talks of kyphoplasty.
[2020-12-21] MEDS: LIDOCAINE 5% PATCH TOPICAL SCH (08:27)
[2020-12-21] MEDS: ASCORBIC ACID 500 MG TAB PO SCH (08:29)
[2020-12-21] MEDS: DILTIAZEM ORAL 30 MG TAB PO SCH ×2 (08:29→20:33)
[2020-12-21] MEDS: CHOLECALCIFEROL 25 MCG (1000 IU) TABLET PO SCH (08:29)
[2020-12-21] MEDS: MULTIVITAMINS, THERA 1 EACH TAB PO SCH (08:29)
[2020-12-21] MEDS: PANTOPRAZOLE 40 MG/10 ML VIAL IV SCH ×2 (08:29→20:33)
--- NOTE | 2020-12-21 11:13 | P.PN ---
Subjective Patient is doing fairly well today. Patient is very hard of hearing and legally blind. No acute events overnight according to nursing staff. Objective - Vital Signs Vital signs: Vital Signs Temp 99.7 F H 12/21/20 08:10 Pulse 62 12/21/20 08:10 Resp 16 12/21/20 08:10 BP 145/65 12/21/20 08:10 Pulse Ox 95 12/21/20 08:10 Intake & Output 12/20/20 12/21/20 12/21/20 18:59 06:59 18:59 Intake Total 250 Output Total 100 3 Balance 150 -3 Weight 65.5 kg Intake: IV 10 0.9 10 Oral 240 Output: Urine 100 Stool 3 Other: Voiding Method Bedpan Bedpan Bedpan Urinal Urinal Urinal # Voids 2 1 # Bowel Movements 1 - Exam General: The patient is awake and alert, in no distress Eye: there is normal conjunctiva bilaterally. Neck: The neck is supple, there is no JVD. Cardiovascular: Normal S1-S2, no S3-S4, no murmurs. Respiratory: Lungs clear to auscultation bilaterally Gastrointestinal: Abdomen is soft, nontender Musculoskeletal: There is no pedal edema. Neurological:. Speech is normal. Skin: Skin is warm and dry - Labs CBC & Chem 7: 12/21/20 07:45 12/21/20 07:45 Labs: Abnormal Lab Results - Last 24 Hours (Table) 12/21/20 12/21/20 Range/Units 07:45 07:45 RBC 3.46 L (4.30-5.90) m/uL Hgb 10.1 L (13.0-17.5) gm/dL Hct 32.0 L (39.0-53.0) % Lymphocytes # 0.8 L (1.0-4.8) k/uL Potassium 3.4 L (3.5-5.1) mmol/L Glucose 107 H (74-99) mg/dL Assessment and Plan Assessment: Patient is a very pleasant 85-year-old male with a past medical history of g [place] (legally blind), very hard of hearing, atrial fibrillation on anticoagulation with Eliquis, hypertension, hyperlipidemia, CAD with previous [place], CHF, CVA 2016, and esophageal ulcer. Patient presented to the emergency department on 12/14/20 with a chief complaint of syncopal episode. Patient was reportedly undergoing physical therapy at [facility] when he suddenly lost consciousness. In the emergency department, labs were completed revealing Normocytic normochromic anemia with hemoglobin of 10.4, non-anion gap metabolic acidosis with chloride of 180 carbon dioxide of 20, prerenal azotemia with BUN of 58, and elevated troponins but flat at 0.237 and 0.209 and 0.276. Urinalysis was negative for infection and Covid 19 PCR NEGATIVE. Chest x-ray normal findings negative for acute cardiopulmonary process. EKG revealing atrial fibrillation with a controlled ventricular rate of 82 bpm. Patient was admitted under our services with consultation to cardiology. Echocardiogram was completed revealing normal EF between 50 and 55% with mild to moderate aortic valve sclerosis. During hospitalization and RN reported large amounts of black tarry stool and patient had a significant 4 g drop in hemoglobin from 10.4 down to 6.3. Eliquis and aspirin held. Pt required 2 units PRBCs to obtain stabilization of hemoglobin. CT abdomen and pelvis completed revealing prominent circumferential thickening in the region of the distal esophagus, possible 2 cm mural based thickening along the medial wall of the lower ascending colon, sigmoid diverticulosis without acute diverticulitis, a few nonobstructive colliculi in the left kidney, circumferential bladder wall thickening, mild superior endplate deformity of L1, and trace pleural effusions. General surgery was consulted and EGD and colonoscopy on 12/19/20. Colonoscopy showed right colon mass highly concerning for malignancy. Assessment and Plan of Care: Acute blood loss anemia due to GI bleed with gross melena, Hgb stable Right colon mass, awaiting pathology -Received transfusion of 2 units PRBCs w -Eliquis and Aspirin held. -Protonix 40 mg IVP twice daily -EGD showing gastritis and esophagitis, colonoscopy showing a right colonic mass highly concerning for malignancy awaiting pathology -CT abdomen and pelvis with and without IV contrast revealed prominent circumferential thickening in the region of the distal esophagus, possible 2 cm mural based thickening along the medial wall of the lower ascending colon, sigmoid diverticulosis without acute diverticulitis, a few nonobstructive co lliculi in the left kidney, and circumferential bladder wall thickening. Syncope, likely multifactorial secondary to acute blood loss resulting in hypovolemia with elevated troponins Elevated troponin secondary to non-thrombotic troponin leak, hypotension, and acute blood loss anemia -Cardiology consulted, recommending continued medical management with no further cardiac workup or testing at this time. -Echocardiogram was completed revealing normal EF between 50 and 55% with mild to moderate aortic valve sclerosis. -Consult physical therapy Atrial Fibrillation -Heart rate well controlled -Aspirin and Eliquis held due to acute blood loss anemia Uncontrolled lower back pain status post fall [address] report of endplate deformity of L1. Pain medications adjusted. Orthospine consulted and recommending continuation of conservative measures with pain management and plans to order LSO brace. if no improvement may discuss kyphoplasty once pt is medically stable. Fall precautions PT consult. Hypertension Monitor vital signs and continue daily medication regimen. Hyperlipidemia Continue daily medication regimen with atorvastatin 20 mg nightly Glaucoma Continue daily medication regimen with eyedrops. Patient may be considered for colectomy pending pathology report during this admission. CODE STATUS: Full code DVT prophylaxis: SCDs Discussed with: Patient and RN Anticipated discharge date: Clinical course to determine Anticipated discharge place: Home versus back to [facility] for continued rehab A total of 45 minutes was spent on the care of this complex patient more than 50% of the time was spent in counseling and care coordination.
--- NOTE | 2020-12-21 11:15 | P.PN ---
Subjective Progress Note Date: 12/21/20 CHIEF COMPLAINT: GI bleed HISTORY OF PRESENT ILLNESS: Patient is status post EGD and colonoscopy revealing antral gastritis, esophagitis, small hiatal hernia and right colon mass. Patient's L1 kyphoplasty was not completed yesterday. Family wants to wait for colon mass biopsy results first. Patient denies any abdominal pain. Lying in bed comfortably. He is confused. Afebrile. WBC is 7.6 hemoglobin 10.1 Patient seen and examined with Dr. love PHYSICAL EXAM: VITAL SIGNS: Reviewed. GENERAL: Well-developed in no acute distress. HEENT: No sclera icterus. Extraocular movements grossly intact. Moist buccal mucosa. Head is atraumatic, normocephalic. ABDOMEN: Soft. Nondistended. Nontender. NEUROLOGIC: confused ASSESSMENT: 1. Acute GI bleed with acute blood loss anemia likely due to right colon mass PLAN: -Patient can be discharged from surgical standpoint when cleared medically -Patient follow-up with Dr. Love in 1 week -Follow up on pathology results for colon mass. Follow-up can be done outpatient -Patient is going to require surgical intervention for colon mass Physician Supervisory Geographer note has been reviewed by physician. Signing provider agrees with the documented findings, assessment, and plan of care. Objective - Vital Signs Vital signs: Vital Signs Temp 99.7 F H 12/21/20 08:10 Pulse 62 12/21/20 08:10 Resp 16 12/21/20 08:10 BP 145/65 12/21/20 08:10 Pulse Ox 95 12/21/20 08:10 Intake & Output 12/20/20 12/21/20 12/21/20 18:59 06:59 18:59 Intake Total 250 Output Total 100 3 Balance 150 -3 Weight 65.5 kg Intake: IV 10 0.9 10 Oral 240 Output: Urine 100 Stool 3 Other: Voiding Method Bedpan Bedpan Bedpan Urinal Urinal Urinal # Voids 2 1 # Bowel Movements 1 - Labs CBC & Chem 7: 12/21/20 07:45 12/21/20 07:45 Labs: Abnormal Lab Results - Last 24 Hours (Table) 12/21/20 12/21/20 Range/Units 07:45 07:45 RBC 3.46 L (4.30-5.90) m/uL Hgb 10.1 L (13.0-17.5) gm/dL Hct 32.0 L (39.0-53.0) % Lymphocytes # 0.8 L (1.0-4.8) k/uL Potassium 3.4 L (3.5-5.1) mmol/L Glucose 107 H (74-99) mg/dL
[2020-12-21] MEDS: ATORVASTATIN 20 MG TAB PO SCH (20:32)
[2020-12-21] MEDS: LATANOPROST 0.005% OPHTH DROPS 2.5 ML BTL BOTH EYES SCH (20:33)
[2020-12-21] MEDS: DONEPEZIL 10 MG TAB PO SCH (20:33)
[2020-12-21] MEDS: ACETAMINOPHEN TAB 325 MG TAB PO PRN (22:23)
[2020-12-22] MEDS: ASCORBIC ACID 500 MG TAB PO SCH (07:23)
[2020-12-22] MEDS: MULTIVITAMINS, THERA 1 EACH TAB PO SCH (07:23)
[2020-12-22] MEDS: CHOLECALCIFEROL 25 MCG (1000 IU) TABLET PO SCH (07:23)
[2020-12-22] MEDS: LACTATED RINGERS 1,000 ML IV SCH (07:23)
[2020-12-22] MEDS: TIMOLOL 0.5% OPHTH DROPS 5 ML BTL BOTH EYES SCH ×2 (07:24→21:38)
[2020-12-22] MEDS: PILOCARPINE 1% OPHTH DROPS 15 ML BTL RIGHT EYE SCH ×2 (07:24→21:38)
[2020-12-22] MEDS: PANTOPRAZOLE 40 MG/10 ML VIAL IV SCH ×2 (07:24→21:37)
[2020-12-22] MEDS: DORZOLAMIDE HCL 2% DROPS 10 ML BTL BOTH EYES SCH (07:24)
[2020-12-22] MEDS: DILTIAZEM ORAL 30 MG TAB PO SCH ×2 (07:36→21:37)
[2020-12-22] MEDS: LIDOCAINE 5% PATCH TOPICAL SCH (09:18)
[2020-12-22 09:26] LABS: HCT 32.9 % (39.0-53.0); HGB 10.5 gm/dL (13.0-17.5); Hypochromasia Slight; MCH 29.7 pg (25.0-35.0); MCHC 31.9 g/dL (31.0-37.0); MCV 92.9 fL (80.0-100.0); Mean Platelet Volume 7.4; Platelet Count 360 k/uL (150-450); RBC 3.54 m/uL (4.30-5.90); RDW 14.7 % (11.5-15.5); WBC 6.3 k/uL (3.8-10.6)
[2020-12-22 09:51] LABS: African American GFR (CKD) 80 (>60 ml/min/1.73 sqM); Anion Gap 5 mmol/L; Blood Urea Nitrogen 11 mg/dL (9-20); Calcium 8.7 mg/dL (8.4-10.2); Carbon Dioxide 27 mmol/L (22-30); Chloride 107 mmol/L (98-107); Glucose 103 mg/dL (74-99); Non-African American GFR(CKD) 69 (>60 ml/min/1.73 sqM); Potassium 3.7 mmol/L (3.5-5.1); Sodium 139 mmol/L (137-145)
--- NOTE | 2020-12-22 10:26 | P.PN ---
Subjective Progress Note Date: 12/22/20 Principal diagnosis: L1 vertebral compression fracture, GI bleed Patient was examined today bedside, he is resting his hospital bed. Patient's was present at bedside today. Dr. Barker was available today to discuss treatment options. With the pathology report pending with regards to the mass that was found in his colon, the patient would like to wait until a decision is made on further treatment for that. Objective - Vital Signs Vital signs: Vital Signs Temp 97.5 F L 12/22/20 07:02 Pulse 95 12/22/20 07:02 Resp 18 12/22/20 07:02 BP 141/63 12/22/20 07:02 Pulse Ox 95 12/22/20 07:02 Intake & Output 12/21/20 12/22/20 12/22/20 18:59 06:59 18:59 Intake Total 454 118 Output Total 3 Balance 451 118 Intake: Oral 454 118 Output: Stool 3 Other: Voiding Method Bedpan Bedside Commode Bedside Commode Urinal Urinal Urinal # Voids 4 1 # Bowel Movements 1 - Exam Exam is very limited due to patient's current medical state. Mild discomfort to lumbar spine with palpation midline and paraspinal region. Range of motion of the lower extremities reproduces mild discomfort in the low back. - Labs CBC & Chem 7: 12/22/20 09:01 12/22/20 09:01 Labs: Abnormal Lab Results - Last 24 Hours (Table) 12/22/20 12/22/20 Range/Units 09:01 09:01 RBC 3.54 L (4.30-5.90) m/uL Hgb 10.5 L (13.0-17.5) gm/dL Hct 32.9 L (39.0-53.0) % Glucose 103 H (74-99) mg/dL Assessment and Plan Assessment: L1 vertebral compression fracture Anemia GI bleed Right colon mass Other medical comorbidities Plan: Dr. Barker was available to discuss the treatment options with the patient. We discussed with her that there is a window of time for kyphoplasty of the compression fracture. She would prefer to wait until the pathology report and treatment options are discussed with her regarding colonic mass. Recommend walker with ambulation along with assistance, no lifting, bending or twisting, continue with PT/OT We'll be signing outpatient this time, if they are interested in proceeding with a kyphoplasty at a later date please reach out to our group we be more than happy to see the patient. Time with Patient: Less than 30
--- NOTE | 2020-12-22 11:42 | P.PN ---
Subjective Patient appears confused and agitated today. is at bedside. Objective - Vital Signs Vital signs: Vital Signs Temp 97.5 F L 12/22/20 07:02 Pulse 61 12/22/20 10:38 Resp 18 12/22/20 10:38 BP 141/63 12/22/20 07:02 Pulse Ox 95 12/22/20 07:02 Intake & Output 12/21/20 12/22/20 12/22/20 18:59 06:59 18:59 Intake Total 454 118 Output Total 3 Balance 451 118 Intake: Oral 454 118 Output: Stool 3 Other: Voiding Method Bedpan Bedside Commode Bedside Commode Urinal Urinal Urinal # Voids 4 1 # Bowel Movements 1 - Exam General: The patient is awake and alert, in no distress Eye: there is normal conjunctiva bilaterally. Neck: The neck is supple, there is no JVD. Cardiovascular: Normal S1-S2, no S3-S4, no murmurs. Respiratory: Lungs clear to auscultation bilaterally Gastrointestinal: Abdomen is soft, nontender Musculoskeletal: There is no pedal edema. Neurological:. Speech is normal. Skin: Skin is warm and dry - Labs CBC & Chem 7: 12/22/20 09:01 12/22/20 09:01 Labs: Abnormal Lab Results - Last 24 Hours (Table) 12/22/20 12/22/20 Range/Units 09:01 09:01 RBC 3.54 L (4.30-5.90) m/uL Hgb 10.5 L (13.0-17.5) gm/dL Hct 32.9 L (39.0-53.0) % Glucose 103 H (74-99) mg/dL Assessment and Plan Assessment: Patient is a very pleasant 85-year-old male with a past medical history of glaucoma (legally blind), very hard of hearing, atrial fibrillation on anticoagulation with Eliquis, hypertension, hyperlipidemia, CAD with previous [place], CHF, CVA 2017, and esophageal ulcer. Patient presented to the emergency department on 12/14/20 with a chief complaint of syncopal episode. Patient was reportedly undergoing physical therapy at [facility] when he suddenly lost consciousness. In the emergency department, labs were completed revealing Normocytic normochromic anemia with hemoglobin of 10.4, non-anion gap metabolic acidosis with chloride of 180 carbon dioxide of 20, prerenal azotemia with BUN of 58, and elevated troponins but flat at 0.237 and 0.209 and 0.276. Urinalysis was negative for infection and Covid 19 PCR NEGATIVE. Chest x-ray normal findings negative for acute cardiopulmonary process. EKG revealing atrial fibrillation with a controlled ventricular rate of 82 bpm. Patient was admitted under our services with consultation to cardiology. Echocardiogram was completed revealing normal EF between 50 and 55% with mild to moderate aortic valve sclerosis. During hospitalization and RN reported large amounts of black tarry stool and patient had a significant 4 g drop in hemoglobin from 10.4 down to 6.3. Eliquis and aspirin held. Pt required 2 units PRBCs to obtain stabilization of hemoglobin. CT abdomen and pelvis completed revealing prominent circumferential thickening in the region of the distal esophagus, possible 2 cm mural based thickening along the medial wall of the lower ascending colon, sigmoid diverticulosis without acute diverticulitis, a few nonobstructive colliculi in the left kidney, circumferential bladder wall thickening, mild superior endplate deformity of L1, and trace pleural effusions. General surgery was consulted and EGD and colonoscopy on 12/19/20. Colonoscopy showed right colon mass highly concerning for malignancy. Assessment and Plan of Care: Newly diagnosed adenocarcinoma of the right colon Acute blood loss anemia due to GI bleed with gross melena, Hgb stable Right colon mass, awaiting pathology -Received transfusion of 2 units PRBCs w -Eliquis and Aspirin held. -Protonix 40 mg IVP twice daily -EGD showing gastritis and esophagitis, colonoscopy showing a right colonic mass highly concerning for malignancy awaiting pathology -CT abdomen and pelvis with and without IV contrast revealed prominent circumferential thickening in the region of the distal esophagus, possible 2 cm mural based thickening along the medial wall of the lower ascending colon, sigmoid diverticulosis without acute diverticulitis, a few nonobstructive colliculi in the left kidney, and circumferential bladder wall thickening. Syncope, likely multifactorial secondary to acute blood loss resulting in hypovolemia with elevated troponins Elevated troponin secondary to non-thrombotic troponin leak, hypotension, and acute blood loss anemia -Cardiology consulted, recommending continued medical management with no further cardiac workup or testing at this time. -Echocardiogram was completed revealing normal EF between 50 and 55% with mild to moderate aortic valve sclerosis. -Consult physical therapy Atrial Fibrillation -Heart rate well controlled -Aspirin and Eliquis held due to acute blood loss anemia Uncontrolled lower back pain status post fall [address] report of endplate deformity of L1. Pain medications adjusted. Orthospine consulted and recommending continuation of conservative measures with pain management and plans to order LSO brace. if no improvement may discuss kyphoplasty once pt is medically stable. Fall precautions PT consult. Hypertension Monitor vital signs and continue daily medication regimen. Hyperlipidemia Continue daily medication regimen with atorvastatin 20 mg nightly Glaucoma Continue daily medication regimen with eyedrops. Today, had a prolonged discussion with the patient's regarding pathology report. I asked her how she would like to proceed given patient's underlying medical problems and whether she wanted pursue surgical resection of the cancer and possibly chemotherapy down the road. I advised her to discuss options of treatment with oncology and surgery as well. We also discussed hospice philosophy and comfort care. Answered all of her questions to her satisfaction. She would like to meet with oncology and discussed with her children as well. CODE STATUS: Full code DVT prophylaxis: SCDs Discussed with: Patient and RN Anticipated discharge date: Clinical course to determine Anticipated discharge place: [facility] A total of 45 minutes was spent on the care of this complex patient more than 50% of the time was spent in counseling and care coordination.
[2020-12-22 12:50] VITALS: BMI 20.1
--- NOTE | 2020-12-22 15:11 | P.PN ---
Subjective Progress Note Date: 12/22/20 CHIEF COMPLAINT: GI bleed HISTORY OF PRESENT ILLNESS: Patient is status post EGD and colonoscopy revealing antral gastritis, esophagitis, small hiatal hernia and right colon mass. Patient's pathology results showed adenocarcinoma. Dr. Love did discuss findings with patient's . And he is recommending right colectomy. Patient denies any abdominal pain. He does have some minimal back pain. He is tolerating diet. He has had a bowel movement. No blood reported in the stool. Afebrile. WBC is 6.3 hemoglobin is 10.5 platelets 360 sodium 139 potassium is improved from 3.4-3.7 creatinine 0.99 Patient seen and examined with Dr. love PHYSICAL EXAM: VITAL SIGNS: Reviewed. GENERAL: Well-developed in no acute distress. HEENT: No sclera icterus. Extraocular movements grossly intact. Moist buccal mucosa. Head is atraumatic, normocephalic. ABDOMEN: Soft. Nondistended. Nontender. NEUROLOGIC: confused ASSESSMENT: 1. Acute GI bleed with acute blood loss anemia likely due to right colon mass 2. Colon cancer with pathology positive for adenocarcinoma PLAN: -Patient scheduled for right colectomy with Dr. Love on 12/26/2020 -Continue supportive care -Awaiting patient and family's decision in regards to proceeding with surgery on Saturday -Oncology on consult -Case discussed with medical service Physician Building Manager note has been reviewed by physician. Signing provider agrees with the documented findings, assessment, and plan of care. Objective - Vital Signs Vital signs: Vital Signs Temp 98.2 F 12/22/20 14:00 Pulse 57 L 12/22/20 14:00 Resp 19 12/22/20 14:00 BP 118/71 12/22/20 14:00 Pulse Ox 96 12/22/20 14:00 Intake & Output 12/21/20 12/22/20 12/22/20 18:59 06:59 18:59 Intake Total 454 118 Output Total 3 151 Balance 451 -33 Weight 65.5 kg Intake: Oral 454 118 Output: Urine 150 Stool 3 1 Other: Voiding Method Bedpan Bedside Commode Bedside Commode Urinal Urinal Urinal # Voids 4 1 # Bowel Movements 1 - Labs CBC & Chem 7: 12/22/20 09:01 12/22/20 09:01 Labs: Abnormal Lab Results - Last 24 Hours (Table) 12/22/20 12/22/20 Range/Units 09:01 09:01 RBC 3.54 L (4.30-5.90) m/uL Hgb 10.5 L (13.0-17.5) gm/dL Hct 32.9 L (39.0-53.0) % Glucose 103 H (74-99) mg/dL
--- NOTE | 2020-12-22 19:42 | P.CONS ---
History of Present Illness - Reason for Consult Consult date: 12/22/20 colon adenocarcinoma Requesting physician: Allison Milligan - Chief Complaint AMS, weak, near syncopy - History of Present Illness Pt is an 85 year old man we have been asked to see for new diagnosis of adenocarcinoma of the colon. He has children and at bedside when seen, he is very [place], denies SOB, food doesn't taste good, no abd pain at this time, he keeps staying he has to go to the bathroom. Family gives rest of the history. Over the past week pt has had progressive changes in mental status, he had become weaker and he did pass out at [facility] (there for rehab) which is what brought him to the hospital. He was found to be anemic, family reported seeing black stool, CT AP showed distal esophageal thickening, 2cm mural thickening in the ascending colon, could see prostatectomy and pelvic LN dissection. Pt had EGD and colonoscopy-biopsies from EGD were neg for malignancy, colon biopsy was + for mod differentiated adenocarcinoma. Review of Systems Focused ROS is neg except as stated in HPI Past Medical History Past Medical History: Atrial Fibrillation, Cancer, Heart Failure, CVA/TIA, Myocardial Infarction ([place]), Syncope Additional Past Medical History / Comment(s): Lumbar fracture, stroke in 2016, [place] 2016, esophogeal ulcer found in scope in June 2020, kidney stone removal in 2019, glaucoma Last Myocardial Infarction Date:: 2016 History of Any Multi-Drug Resistant Organisms: None Reported Past Surgical History: Heart Catheterization With Stent Additional Past Surgical History / Comment(s): Heart cath with 3 stents in 2016 Past Anesthesia/Blood Transfusion Reactions: No Reported Reaction Date of Last Stent Placement:: 2016 Past Psychological History: No Psychological Hx Reported Smoking Status: Never smoker Past Alcohol Use History: None Reported Past Drug Use History: None Reported - Past Family History Mother Additional Family Medical History / Comment(s): Glaucoma Father Family Medical History: No Reported History Medications and Allergies Home Medications Medication Instructions Recorded Confirmed Type Acetaminophen Tab [Tylenol] 650 mg PO Q6H PRN 12/14/20 12/14/20 History Apixaban [Eliquis] 2.5 mg PO BID@0800,2000 12/14/20 12/14/20 History Ascorbic Acid [Vitamin C] 500 mg PO DAILY@0800 12/14/20 12/14/20 History Aspirin 81 mg PO DAILY@0800 12/14/20 12/14/20 History Atorvastatin [Lipitor] 20 mg PO HS 12/14/20 12/14/20 History Brinzolamide [Brinzolamide 1% 1 drop BOTH EYES BID@0800,1600 12/14/20 12/14/20 History Ophth Susp] Cholecalciferol [Vitamin D3 (25 125 mcg PO DAILY@0800 12/14/20 12/14/20 History Mcg = 1000 Iu)] Diltiazem Oral [Cardizem Oral] 30 mg PO BID@0800,2000 12/14/20 12/14/20 History Donepezil [Aricept] 10 mg PO HS 12/14/20 12/14/20 History Latanoprost Ophth [Xalatan 0.005%] 1 drop BOTH EYES HS 12/14/20 12/14/20 History Lidocaine [Lidoderm 5% Patch] 1 patch TRANSDERM DAILY 12/14/20 12/14/20 History Med Plus 2.0 120 ml PO BID@0800,1600 12/14/20 12/14/20 History Melatonin 5 mg PO HS PRN 12/14/20 12/14/20 History Multivitamins, Thera [Multivitamin 1 tab PO DAILY@0800 12/14/20 12/14/20 History (formulary)] Pilocarpine 1% Ophth Soln [Isopto 1 drop RIGHT EYE BID@0800,199912/14/20 12/14/20 History Carpine 1%] Timolol 0.5% Ophth Gel Forming 1 drop BOTH EYES BID@0800,199912/14/20 12/14/20 History [Timoptic-Xe 0.5% Gel Form] Zinc Sulfate [Orazinc] 220 mg PO DAILY@0800 12/14/20 12/14/20 History Allergies Allergy/AdvReac Type Severity Reaction Status Date / Time oxycodone Allergy Unknown Verified 12/14/20 22:50 Penicillins Allergy Unknown Verified 12/14/20 22:50 Physical Exam Vitals: Vital Signs Temp Pulse Resp BP BP BP Pulse Ox 12/22/20 14:00 98.2 F 57 L 19 118/71 96 12/22/20 10:38 61 18 12/22/20 07:02 97.5 F L 95 18 141/63 95 12/22/20 01:58 98.7 F 52 L 18 137/79 127/72 97 12/22/20 00:16 98.7 F 52 L 18 127/72 97 12/22/20 00:06 57 L 18 12/21/20 22:59 62 16 123/61 100 12/21/20 20:00 98.4 F 61 18 107/52 96 Intake and Output 12/22/20 12/22/20 12/22/20 06:59 14:59 22:59 Intake Total 118 Output Total 151 101 Balance -33 -101 Intake: Oral 118 Output: Urine 150 100 Stool 1 1 Other: Voiding Method Bedside Commode Bedside Commode Urinal Urinal # Voids 4 1 1 Weight 65.5 kg - Constitutional General appearance: average body habitus, cooperative, mild distress - EENT normocephalic, atraumatic, per family pt blind, he has his hat over his eyes ENT: hearing grossly normal, thrush - Neck Neck: no lymphadenopathy - Respiratory Respiratory: bilateral: CTA - Cardiovascular Rhythm: regular Heart sounds: normal: S1, S2 Abnormal Heart Sounds: no systolic murmur, no diastolic murmur, no rub, no S3 Gallop, no S4 Gallop, no click, no other leg Peripheral Edema: bilateral: None - Gastrointestinal General gastrointestinal: no absent bowel sounds, no decreased bowel sounds, no distended, no hepatomegaly, no hyperactive bowel sounds, normal bowel sounds, no organomegaly, no rigid, no scaphoid, soft, no splenomegaly, no tenderness, no umbilical hernia, no ventral hernia - Musculoskeletal Musculoskeletal: generalized weakness - Psychiatric Psychiatric: A&O x's 3 Results CBC & Chem 7: 12/22/20 09:01 12/22/20 09:01 Labs: Abnormal Lab Results - Last 24 Hours (Table) 12/22/20 12/22/20 Range/Units 09:01 09:01 RBC 3.54 L (4.30-5.90) m/uL Hgb 10.5 L (13.0-17.5) gm/dL Hct 32.9 L (39.0-53.0) % Glucose 103 H (74-99) mg/dL CT scan - abdomen: report reviewed CT scan - pelvis: report reviewed Assessment and Plan (1) Adenocarcinoma Narrative/Plan: Moderately differentiated adenocarcinoma of the right colon. Does not appear to have metastatic disease on CT AP. Agree with surgical intervention for removal of tumor and lymph node dissection. Will be able to give family stage once path on the tumor and LN dissection is completed. Once we have that information we will be able to give prognosis and any recommendations for treatments. Reviewed all of family's questions to the best of my ability and to their satisfaction. >35 min spent Current Visit: Yes Status: Acute Priority: High Code(s): C80.1 - MALIGNANT (PRIMARY) NEOPLASM, UNSPECIFIED SNOMED Code(s): 998242854 (2) Normocytic normochromic anemia Narrative/Plan: Anemia work up ordered Current Visit: Yes Status: Acute Priority: Medium Code(s): D64.9 - ANEMIA, UNSPECIFIED SNOMED Code(s): 11369654 (3) Thrush, oral Narrative/Plan: Severe, oral suspension ordered for treatment Current Visit: Yes Status: Acute Priority: High Code(s): B37.0 - CANDIDAL STOMATITIS SNOMED Code(s): 35730488 Time with Patient: Greater than 30
[2020-12-22] MEDS: ATORVASTATIN 20 MG TAB PO SCH (21:37)
[2020-12-22] MEDS: DONEPEZIL 10 MG TAB PO SCH (21:37)
[2020-12-22] MEDS: NYSTATIN 100,000 UNIT/ML SUSP 500,000 UNIT/5 ML CUP PO SCH (21:37)
[2020-12-22] MEDS: LATANOPROST 0.005% OPHTH DROPS 2.5 ML BTL BOTH EYES SCH (21:38)
[2020-12-23] MEDS: TIMOLOL 0.5% OPHTH DROPS 5 ML BTL BOTH EYES SCH ×2 (08:18→21:06)
[2020-12-23] MEDS: PILOCARPINE 1% OPHTH DROPS 15 ML BTL RIGHT EYE SCH ×2 (08:18→21:05)
[2020-12-23] MEDS: LIDOCAINE 5% PATCH TOPICAL SCH (08:19)
[2020-12-23] MEDS: PANTOPRAZOLE 40 MG/10 ML VIAL IV SCH ×2 (08:19→21:04)
[2020-12-23] MEDS: ASCORBIC ACID 500 MG TAB PO SCH (08:35)
[2020-12-23] MEDS: MULTIVITAMINS, THERA 1 EACH TAB PO SCH (08:36)
[2020-12-23] MEDS: DILTIAZEM ORAL 30 MG TAB PO SCH ×2 (08:37→21:05)
[2020-12-23] MEDS: CHOLECALCIFEROL 25 MCG (1000 IU) TABLET PO SCH (08:37)
[2020-12-23] MEDS: NYSTATIN 100,000 UNIT/ML SUSP 500,000 UNIT/5 ML CUP PO SCH ×4 (10:08→21:05)
[2020-12-23] MEDS ORDERED: Potassium Replacement Protocol 1 EACH MISC MISCELLANE PRN (11:11)
[2020-12-23 11:47] LABS: % Iron Saturation 4.22 (15.00-50.00)
[2020-12-23 11:48] LABS: Ferritin 31.4 ng/mL (22.0-322.0)
[2020-12-23] MEDS: LACTATED RINGERS 1,000 ML IV SCH (12:29)
--- NOTE | 2020-12-23 13:30 | P.PN ---
Subjective Patient is doing fairly well today. No acute events overnight reported by nursing staff. Objective - Vital Signs Vital signs: Vital Signs Temp 98.5 F 12/23/20 07:26 Pulse 61 12/23/20 10:22 Resp 18 12/23/20 07:26 BP 105/60 12/23/20 07:26 Pulse Ox 94 L 12/23/20 07:26 Intake & Output 12/22/20 12/23/20 12/23/20 18:59 06:59 18:59 Intake Total 118 118 Output Total 252 100 Balance -134 18 Weight 65.5 kg Intake: Oral 118 118 Output: Urine 250 100 Stool 2 Other: Voiding Method Bedside Commode Bedside Commode Urinal Bedpan # Voids 1 4 1 # Bowel Movements 1 - Exam General: The patient is awake and alert, in no distress Eye: there is normal conjunctiva bilaterally. Neck: The neck is supple, there is no JVD. Cardiovascular: Normal S1-S2, no S3-S4, no murmurs. Respiratory: Lungs clear to auscultation bilaterally Gastrointestinal: Abdomen is soft, nontender Musculoskeletal: There is no pedal edema. Neurological:. Speech is normal. Skin: Skin is warm and dry - Labs CBC & Chem 7: 12/22/20 09:01 12/22/20 09:01 Labs: Abnormal Lab Results - Last 24 Hours (Table) 12/23/20 Range/Units 04:51 Iron 9 L (65-175) ug/dL TIBC 220 L (228-460) ug/dL % Saturation 4.22 L (15.00-50.00) Transferrin 157.0 L (204.0-354.0) mg/dL Assessment and Plan Assessment: Patient is a very pleasant 85-year-old male with a past medical history of glaucoma (legally blind), very hard of hearing, atrial fibrillation on anticoagulation with Eliquis, hypertension, hyperlipidemia, CAD with previous [place], CHF, CVA 2017, and esophageal ulcer. Patient presented to the emergency department on 12/14/20 with a chief complaint of syncopal episode. Patient was reportedly undergoing physical therapy at [facility] when he suddenly lost consciousness. In the emergency department, labs were completed revealing Normocytic normochromic anemia with hemoglobin of 10.4, non-anion gap metabolic acidosis with chloride of 180 carbon dioxide of 20, prerenal azotemia with BUN of 58, and elevated troponins but flat at 0.237 and 0.209 and 0.276. Urinalysis was negative for infection and Covid 19 PCR NEGATIVE. Chest x-ray normal findings negative for acute cardiopulmonary process. EKG revealing atrial fibrillation with a controlled ventricular rate of 82 bpm. Patient was admitted under our services with consultation to cardiology. Echocardiogram was completed revealing normal EF between 50 and 55% with mild to moderate aortic valve sclerosis. During hospitalization and RN reported large amounts of black tarry stool and patient had a significant 4 g drop in hemoglobin from 10.4 down to 6.3. Eliquis and aspirin held. Pt required 2 units PRBCs to obtain stabilization of hemoglobin. CT abdomen and pelvis completed revealing prominent circumferential thickening in the region of the distal esophagus, possible 2 cm mural based thickening along the medial wall of the lower ascending colon, sigmoid diverticulosis without acute diverticulitis, a few nonobstructive colliculi in the left kidney, circumferential bladder wall thickening, mild superior endplate deformity of L1, and trace pleural effusions. General surgery was consulted and EGD and colonoscopy on 12/19/20. Colonoscopy showed right colon mass highly concerning for malignancy. Assessment and Plan of Care: Newly diagnosed adenocarcinoma of the right colon: Scheduled for surgery on Saturday. Gen. surgery and oncology following closely. Acute blood loss anemia due to GI bleed with gross melena, Hgb stable Right colon mass, awaiting pathology -Received transfusion of 2 units PRBCs w -Eliquis and Aspirin held. -Protonix 40 mg IVP twice daily -EGD showing gastritis and esophagitis, colonoscopy showing a right colonic mass highly concerning for malignancy awaiting pathology -CT abdomen and pelvis with and without IV contrast revealed prominent circumferential thickening in the region of the distal esophagus, possible 2 cm mural based thickening along the medial wall of the lower ascending colon, sigmoid diverticulosis without acute diverticulitis, a few nonobstructive colliculi in the left kidney, and circumferential bladder wall thickening. Syncope, likely multifactorial secondary to acute blood loss resulting in hypovolemia with elevated troponins Elevated troponin secondary to non-thrombotic troponin leak, hypotension, and acute blood loss anemia -Cardiology consulted, recommending continued medical management with no further cardiac workup or testing at this time. -Echocardiogram was completed revealing normal EF between 50 and 55% with mild to moderate aortic valve sclerosis. -Consult physical therapy Atrial Fibrillation -Heart rate well controlled -Aspirin and Eliquis held due to acute blood loss anemia Uncontrolled lower back pain status post fall [address] report of endplate deformity of L1. Pain medications adjusted. Orthospine consulted and recommending continuation of conservative measures with pain management and plans to order LSO brace. if no improvement may discuss kyphoplasty once pt is medically stable. Fall precautions PT consult. Hypertension Monitor vital signs and continue daily medication regimen. Hyperlipidemia Continue daily medication regimen with atorvastatin 20 mg nightly Glaucoma Continue daily medication regimen with eyedrops. CODE STATUS: Full code DVT prophylaxis: SCDs Discussed with: Patient and RN Anticipated discharge date: Clinical course to determine Anticipated discharge place: Home versus back to [facility] for continued rehab A total of 45 minutes was spent on the care of this complex patient more than 50% of the time was spent in counseling and care coordination.
--- NOTE | 2020-12-23 13:53 | P.PN ---
Subjective Progress Note Date: 12/23/20 CHIEF COMPLAINT: GI bleed HISTORY OF PRESENT ILLNESS: Patient is status post EGD and colonoscopy revealing antral gastritis, esophagitis, small hiatal hernia and right colon mass. Patient's pathology results showed adenocarcinoma. Dr. Love did discuss findings with patient's . And he is recommending right colectomy. Patient denies any abdominal pain. He does have some back pain. He is tolerating diet. He has had a bowel movement. No blood reported in the stool. Afebrile. WBC is 6.3 hemoglobin is 10.5 Patient seen and examined with Dr. love PHYSICAL EXAM: VITAL SIGNS: Reviewed. GENERAL: Well-developed in no acute distress. HEENT: No sclera icterus. Extraocular movements grossly intact. Moist buccal mucosa. Head is atraumatic, normocephalic. ABDOMEN: Soft. Nondistended. Nontender. NEUROLOGIC: Slightly confused. Able to answer some questions. Hard of hearing ASSESSMENT: 1. Acute GI bleed with acute blood loss anemia likely due to right colon mass 2. Colon cancer with pathology positive for adenocarcinoma PLAN: -Patient scheduled for right colectomy with Dr. Love on 12/26/2020 -Continue supportive care -Oncology following -Continue regular diet for now. Start a clear liquid diet on Saturday in preparation for surgery on Saturday Physician Timber Incisor Operator note has been reviewed by physician. Signing provider agrees with the documented findings, assessment, and plan of care. Objective - Vital Signs Vital signs: Vital Signs Temp 98.5 F 12/23/20 07:26 Pulse 61 12/23/20 10:22 Resp 18 12/23/20 07:26 BP 105/60 12/23/20 07:26 Pulse Ox 94 L 12/23/20 07:26 Intake & Output 12/22/20 12/23/20 12/23/20 18:59 06:59 18:59 Intake Total 118 118 Output Total 252 100 Balance -134 18 Weight 65.5 kg Intake: Oral 118 118 Output: Urine 250 100 Stool 2 Other: Voiding Method Bedside Commode Bedside Commode Urinal Bedpan # Voids 1 4 1 # Bowel Movements 1 - Labs CBC & Chem 7: 12/22/20 09:01 12/22/20 09:01 Labs: Abnormal Lab Results - Last 24 Hours (Table) 12/23/20 Range/Units 04:51 Iron 9 L (65-175) ug/dL TIBC 220 L (228-460) ug/dL % Saturation 4.22 L (15.00-50.00) Transferrin 157.0 L (204.0-354.0) mg/dL
[2020-12-23] MEDS: ACETAMINOPHEN TAB 325 MG TAB PO PRN (16:18)
--- NOTE | 2020-12-23 20:35 | P.PN ---
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 Santamaria today. Patient's , son, and daughter in law at bedside. Objective - Vital Signs Vital signs: Vital Signs Temp 98.0 F 12/23/20 15:54 Pulse 51 L 12/23/20 17:32 Resp 20 12/23/20 17:32 BP 112/62 12/23/20 15:54 Pulse Ox 96 12/23/20 15:54 Intake & Output 12/23/20 12/23/20 12/24/20 06:59 18:59 06:59 Intake Total 358 Output Total 100 Balance 258 Intake: Oral 358 Output: Urine 100 Other: Voiding Method Bedside Commode Bedpan # Voids 4 1 # Bowel Movements 1 - Exam Fatigued. lethargic Awakens to stimulates NAD Lungs: diminished, no increased effort Heart: Reg irr Abdomen: Soft dist Ext: No edema - Labs CBC & Chem 7: 12/22/20 09:01 12/22/20 09:01 Labs: Abnormal Lab Results - Last 24 Hours (Table) 12/23/20 Range/Units 04:51 Iron 9 L (65-175) ug/dL TIBC 220 L (228-460) ug/dL % Saturation 4.22 L (15.00-50.00) Transferrin 157.0 L (204.0-354.0) mg/dL Assessment and Plan (1) Adenocarcinoma Narrative/Plan: MOderately differentiated colon, CT revealed some distal esophageal thickening. there appears to be no further evidence of metastatic disease Current Visit: Yes Status: Acute Priority: High Code(s): C80.1 - MALIGNANT (PRIMARY) NEOPLASM, UNSPECIFIED SNOMED Code(s): 462519807 (2) Dehydration Current Visit: Yes Status: Acute Code(s): E86.0 - DEHYDRATION SNOMED Code(s): 01956340 (3) Normocytic normochromic anemia Current Visit: Yes Status: Acute Priority: Medium Code(s): D64.9 - ANEMIA, UNSPECIFIED SNOMED Code(s): 52886326 (4) Thrush, oral Current Visit: Yes Status: Acute Priority: High Code(s): B37.0 - CANDIDAL STOMATITIS SNOMED Code(s): 48277476 Plan: Right COlectomy planned for saturday Long discussion with patient and family at bedside, all questions answered in detail. Greater than 35 minutes spent with patient's family and with review of medical chart Physician Attest: I have completed the full history and physical and agree with above dictation, dictated as a ascribe
[2020-12-23] MEDS: LATANOPROST 0.005% OPHTH DROPS 2.5 ML BTL BOTH EYES SCH (21:05)
[2020-12-23] MEDS: DONEPEZIL 10 MG TAB PO SCH (21:05)
[2020-12-23] MEDS: ATORVASTATIN 20 MG TAB PO SCH (21:05)
[2020-12-23] MEDS: MELATONIN 5 MG TABLET PO PRN (21:05)
[2020-12-24] MEDS: LIDOCAINE 5% PATCH TOPICAL SCH (07:21)
[2020-12-24] MEDS: ACETAMINOPHEN TAB 325 MG TAB PO PRN ×2 (07:22→16:21)
[2020-12-24] MEDS: ASCORBIC ACID 500 MG TAB PO SCH (09:58)
[2020-12-24] MEDS: CHOLECALCIFEROL 25 MCG (1000 IU) TABLET PO SCH (09:58)
[2020-12-24] MEDS: MULTIVITAMINS, THERA 1 EACH TAB PO SCH (09:58)
[2020-12-24] MEDS: DILTIAZEM ORAL 30 MG TAB PO SCH ×2 (09:58→20:49)
[2020-12-24] MEDS: NYSTATIN 100,000 UNIT/ML SUSP 500,000 UNIT/5 ML CUP PO SCH ×4 (09:58→20:49)
[2020-12-24] MEDS: TIMOLOL 0.5% OPHTH DROPS 5 ML BTL BOTH EYES SCH ×2 (09:59→20:49)
[2020-12-24] MEDS: PILOCARPINE 1% OPHTH DROPS 15 ML BTL RIGHT EYE SCH ×2 (09:59→20:50)
[2020-12-24 12:24] LABS: Basophils # (A) 0.01 X 10*3/uL (0.00-0.10); Basophils % (A) 0.2 %; Eosinophils # (A) 0.27 X 10*3/uL (0.04-0.35); Eosinophils % (A) 5.2 %; HCT 30.4 % (39.6-50.0); HGB 9.5 g/dL (13.0-17.0); Lymphocytes # (A) 0.87 X 10*3/uL (0.90-5.00); Lymphocytes % (A) 16.7 %; MCH 28.7 pg (27.0-32.0); MCHC 31.3 g/dL (32.0-37.0); MCV 91.8 fL (80.0-97.0); Monocytes # (A) 0.62 X 10*3/uL (0.20-1.00); Monocytes % (A) 11.9 %; Neutrophils # (A) 3.41 X 10*3/uL (1.80-7.70); Neutrophils % (A) 65.6 %; Platelet Count 360 X 10*3/uL (140-440); RBC 3.31 X 10*6/uL (4.40-5.60)
--- NOTE | 2020-12-24 12:48 | P.PN ---
Subjective Patient was sleeping this morning. No family at bedside. No acute events overnight reported by nursing staff. Objective - Vital Signs Vital signs: Vital Signs Temp 97.5 F L 12/24/20 08:00 Pulse 61 12/24/20 08:00 Resp 16 12/24/20 08:00 BP 138/92 12/24/20 08:00 Pulse Ox 97 12/24/20 08:00 Intake & Output 12/23/20 12/24/20 12/24/20 18:59 06:59 18:59 Intake Total 358 Output Total 100 401 150 Balance 258 -401 -150 Intake: Oral 358 Output: Urine 100 400 150 Stool 1 Other: Voiding Method Urinal Bedside Commode Urinal # Voids 1 1 # Bowel Movements 1 3 1 - Exam General: The patient is awake and alert, in no distress Eye: there is normal conjunctiva bilaterally. Neck: The neck is supple, there is no JVD. Cardiovascular: Normal S1-S2, no S3-S4, no murmurs. Respiratory: Lungs clear to auscultation bilaterally Gastrointestinal: Abdomen is soft, nontender Musculoskeletal: There is no pedal edema. Neurological:. Speech is normal. Skin: Skin is warm and dry - Labs CBC & Chem 7: 12/24/20 06:42 12/22/20 09:01 Labs: Abnormal Lab Results - Last 24 Hours (Table) 12/24/20 Range/Units 06:42 RBC 3.31 L (4.40-5.60) X 10*6/uL Hgb 9.5 L (13.0-17.0) g/dL Hct 30.4 L (39.6-50.0) % MCHC 31.3 L (32.0-37.0) g/dL RDW 15.0 H (11.5-14.5) % Lymphocytes # 0.87 L (0.90-5.00) X 10*3/uL Assessment and Plan Assessment: Patient is a very pleasant 85-year-old male with a past medical history of glaucoma (legally blind), very hard of hearing, atrial fibrillation on anticoagulation with Eliquis, hypertension, hyperlipidemia, CAD with previous [place], CHF, CVA 2017, and esophageal ulcer. Patient presented to the emergency department on 12/14/20 with a chief complaint of syncopal episode. Patient was reportedly undergoing physical therapy at [facility] when he suddenly lost consc iousness. In the emergency department, labs were completed revealing Normocytic normochromic anemia with hemoglobin of 10.4, non-anion gap metabolic acidosis with chloride of 180 carbon dioxide of 20, prerenal azotemia with BUN of 58, and elevated troponins but flat at 0.237 and 0.209 and 0.276. Urinalysis was negative for infection and Covid 19 PCR NEGATIVE. Chest x-ray normal findings negative for acute cardiopulmonary process. EKG revealing atrial fibrillation with a controlled ventricular rate of 82 bpm. Patient was admitted under our services with consultation to cardiology. Echocardiogram was completed revealing normal EF between 50 and 55% with mild to moderate aortic valve sc lerosis. During hospitalization and RN reported large amounts of black tarry stool and patient had a significant 4 g drop in hemoglobin from 10.4 down to 6.3. Eliquis and aspirin held. Pt required 2 units PRBCs to obtain stabilization of hemoglobin. CT abdomen and pelvis completed revealing prominent circumferential thickening in the region of the distal esophagus, possible 2 cm mural based th ickening along the medial wall of the lower ascending colon, sigmoid diverticulosis without acute diverticulitis, a few nonobstructive colliculi in the left kidney, circumferential bladder wall thickening, mild superior endplate deformity of L1, and trace pleural effusions. General surgery was consulted and EGD and colonoscopy on 12/19/20. Colonoscopy showed right colon mass highly concerning for malignancy. Assessment and Plan of Care: Newly diagnosed adenocarcinoma of the right colon: Scheduled for surgery on Saturday. Gen. surgery and oncology following closely. Acute blood loss anemia due to GI bleed with gross melena, Hgb stable Right colon mass, awaiting pathology -Received transfusion of 2 units PRBCs w -Eliquis and Aspirin held. -Protonix 40 mg IVP twice daily -EGD showing gastritis and esophagitis, colonoscopy showing a right colonic mass highly concerning for malignancy awaiting pathology -CT abdomen and pelvis with and without IV contrast revealed prominent circumferential thickening in the region of the distal esophagus, possible 2 cm mural based thickening along the medial wall of the lower ascending colon, sigmoid diverticulosis without acute diverticulitis, a few nonobstructive colliculi in the left kidney, and circumferential bladder wall thickening. Syncope, likely multifactorial secondary to acute blood loss resulting in hypovolemia with elevated troponins Elevated troponin secondary to non-thrombotic troponin leak, hypotension, and acute blood loss anemia -Cardiology consulted, recommending continued medical management with no further cardiac workup or testing at this time. -Echocardiogram was completed revealing normal EF between 50 and 55% with mild to moderate aortic valve sclerosis. -Consult physical therapy Atrial Fibrillation -Heart rate well controlled -Aspirin and Eliquis held due to acute blood loss anemia Uncontrolled lower back pain status post fall [address] report of endplate deformity of L1. Pain medications adjusted. Orthospine consulted and recommending continuation of conservative measures with pain management and plans to order LSO brace. if no improvement may discuss kyphoplasty once pt is medically stable. Fall precautions PT consult. Hypertension Monitor vital signs and continue daily medication regimen. Hyperlipidemia Continue daily medication regimen with atorvastatin 20 mg nightly Glaucoma Continue daily medication regimen with eyedrops. CODE STATUS: Full code DVT prophylaxis: SCDs Discussed with: Patient and RN Anticipated discharge date: Clinical course to determine Anticipated discharge place: Home versus back to [facility] for continued rehab A total of 45 minutes was spent on the care of this complex patient more than 50% of the time was spent in counseling and care coordination.
[2020-12-24 12:56] LABS: African American GFR (CKD) 79.2 (60.0-200.0); Albumin/Globulin Ratio 1.5 (1.60-3.17); Anion Gap 9.5 mmol/L (4.00-12.00); BUN/Creat Ratio 9.3 Ratio (12.00-20.00); Blood Urea Nitrogen 9.3 mg/dL (9.0-27.0); Calcium 8.5 mg/dL (8.7-10.3); Carbon Dioxide 23.5 mmol/L (21.6-31.8); Non-African American GFR(CKD) 68.3 (60.0-200.0); Potassium 4.1 mmol/L (3.5-5.5); Total Bilirubin 0.3 mg/dL (0.30-1.20)
--- NOTE | 2020-12-24 15:03 | P.PN ---
Subjective Progress Note Date: 12/24/20 CHIEF COMPLAINT: GI bleed HISTORY OF PRESENT ILLNESS: The patient is a 85-year-old male status post upper, lower endoscopy with findings of right colon mass. No reports of abdominal pain. His family is at bedside with multiple questions. Patient is hard of hearing. He is tolerating diet. Family gives additional history of recent rehab with injury to his back and pre-existing weakness. ROS: No reports of nausea and vomiting. No fevers or chills. No new chest pain. No productive sputum PHYSICAL EXAM: VITAL SIGNS: Reviewed CONSTITUTIONAL: Well developed and in no acute distress. EYES: Conjuctivae without sclera icterus. Extraocular movements grossly intact. HEAD, EARS, NOSE, THROAT: Moist buccal mucosa. Head is atraumatic, normocephalic. Hard of hearing. No nasal drainage. NECK: No gross thyroidomegaly. No jugular venous distention. RESPIRATORY: Non-labored respirations and equal bilateral excursions. CARDIOVASCULAR: 2+ radial pulses. ABDOMEN: Nontender. MUSCULOSKELETAL: No gross deformity of the lower extremities noted. No clubbing. No cyanosis. SKIN: Good skin turgor. Well perfused. NEUROLOGIC: Cranial nerves II through XII grossly intact. No focal or lateraliz ing signs. PSYCH: Appropriate affect. Alert and oriented to person, place and time. CLINICAL LABS: Reviewed. Hemoglobin down 10.5-9.5 with anemia. WBC 5.2 and normal. Creatinine 1.0. Iron panel indices low consistent with iron deficiency anemia. STUDIES: CT of the abdomen and pelvis reviewed with diverticulosis, fixed hiatal hernia and mass found along the ascending colon. This is my independent interpretation. ASSESSMENT: 1. Anemia with right colon mass 2. Iron deficiency anemia 3. Recent back injury. PLAN: 1. Recommend iron infusion 2. IVF hydration advised. 3. Add protein oral supplement Ensure advised. 4. All questions addressed with family members. Objective - Vital Signs Vital signs: Vital Signs Temp 97.5 F L 12/24/20 08:00 Pulse 61 12/24/20 08:00 Resp 16 12/24/20 08:00 BP 138/92 12/24/20 08:00 Pulse Ox 97 12/24/20 08:00 Intake & Output 12/23/20 12/24/20 12/24/20 18:59 06:59 18:59 Intake Total 358 Output Total 100 401 150 Balance 258 -401 -150 Intake: Oral 358 Output: Urine 100 400 150 Stool 1 Other: Voiding Method Urinal Bedside Commode Urinal # Voids 1 1 # Bowel Movements 1 3 1 - Labs CBC & Chem 7: 12/24/20 06:42 12/24/20 06:42 Labs: Abnormal Lab Results - Last 24 Hours (Table) 12/24/20 12/24/20 Range/Units 06:42 06:42 RBC 3.31 L (4.40-5.60) X 10*6/uL Hgb 9.5 L (13.0-17.0) g/dL Hct 30.4 L (39.6-50.0) % MCHC 31.3 L (32.0-37.0) g/dL RDW 15.0 H (11.5-14.5) % Lymphocytes # 0.87 L (0.90-5.00) X 10*3/uL BUN/Creatinine Ratio 9.30 L (12.00-20.00) Ratio Calcium 8.5 L (8.7-10.3) mg/dL Total Protein 5.0 L (6.2-8.2) g/dL Albumin 3.0 L (3.8-4.9) g/dL Albumin/Globulin Ratio 1.50 L (1.60-3.17) g/dL Assessment and Plan (1) Colon cancer, ascending Current Visit: Yes Status: Acute Code(s): C18.2 - MALIGNANT NEOPLASM OF ASCENDING COLON SNOMED Code(s): 925470238 (2) Adenocarcinoma Current Visit: Yes Status: Acute Priority: High Code(s): C80.1 - MALIGNANT (PRIMARY) NEOPLASM, UNSPECIFIED SNOMED Code(s): 098194872 (3) Normocytic normochromic anemia Current Visit: Yes Status: Acute Priority: Medium Code(s): D64.9 - ANEMIA, UNSPECIFIED SNOMED Code(s): 59615060
[2020-12-24] MEDS: SODIUM CHLORIDE 0.9% 1,000 ML IV SCH (16:09)
[2020-12-24] MEDS: SODIUM FERRIC GLUCONAT-SUCROSE 125 MG in SODIUM CHLORIDE 0.9% 100 ML IVPB SCH (16:15)
[2020-12-24] MEDS: ATORVASTATIN 20 MG TAB PO SCH (20:49)
[2020-12-24] MEDS: DONEPEZIL 10 MG TAB PO SCH (20:49)
[2020-12-24] MEDS: MELATONIN 5 MG TABLET PO PRN (20:49)
[2020-12-24] MEDS: LATANOPROST 0.005% OPHTH DROPS 2.5 ML BTL BOTH EYES SCH (20:50)
[2020-12-25] MEDS: SODIUM CHLORIDE 0.9% 1,000 ML IV SCH ×2 (03:21→18:18)
[2020-12-25] MEDS: LACTATED RINGERS 1,000 ML IV SCH (03:22)
[2020-12-25] MEDS: ACETAMINOPHEN TAB 325 MG TAB PO PRN ×2 (07:19→20:06)
[2020-12-25] MEDS: LIDOCAINE 5% PATCH TOPICAL SCH (07:21)
[2020-12-25] MEDS: MULTIVITAMINS, THERA 1 EACH TAB PO SCH (09:15)
[2020-12-25] MEDS: DILTIAZEM ORAL 30 MG TAB PO SCH ×2 (09:15→20:06)
[2020-12-25] MEDS: CHOLECALCIFEROL 25 MCG (1000 IU) TABLET PO SCH (09:15)
[2020-12-25] MEDS: TIMOLOL 0.5% OPHTH DROPS 5 ML BTL BOTH EYES SCH ×2 (09:16→20:06)
[2020-12-25] MEDS: ASCORBIC ACID 500 MG TAB PO SCH (09:16)
[2020-12-25] MEDS: PILOCARPINE 1% OPHTH DROPS 15 ML BTL RIGHT EYE SCH ×2 (09:16→20:06)
[2020-12-25] MEDS: NYSTATIN 100,000 UNIT/ML SUSP 500,000 UNIT/5 ML CUP PO SCH ×4 (09:16→21:55)
[2020-12-25] MEDS: SODIUM FERRIC GLUCONAT-SUCROSE 125 MG in SODIUM CHLORIDE 0.9% 100 ML IVPB SCH (09:39)
[2020-12-25] MEDS ORDERED: MAG HYDROX/AL HYDROX/SIMETH 30 ML CUP PO PRN (14:34)
[2020-12-25] MEDS: ONDANSETRON 4 MG/2 ML VIAL IVP PRN (14:58)
--- NOTE | 2020-12-25 15:11 | P.PN ---
Subjective Progress Note Date: 12/25/20 CHIEF COMPLAINT: GI bleed HISTORY OF PRESENT ILLNESS: The patient is a 85-year-old male status post upper, lower endoscopy with findings of right colon mass consistent with colon cancer. Patient also has vertebral fracture requiring kyphoplasty. All family members are at bedside. Patient's family has multiple questions for her surgical options. Patient did receive iron yesterday. He is tolerating diet. He is obtaining protein supplement. Family had multiple questions of generalized hospital care and results and findings the studies. ROS: No reports of nausea and vomiting. No fevers or chills. No new chest pain. No productive sputum PHYSICAL EXAM: VITAL SIGNS: Reviewed CONSTITUTIONAL: Well developed and in no acute distress. EYES: Conjuctivae without sclera icterus. Extraocular movements grossly intact. HEAD, EARS, NOSE, THROAT: Moist buccal mucosa. Head is atraumatic, n ormocephalic. Hard of hearing. No nasal drainage. NECK: No gross thyroidomegaly. No jugular venous distention. RESPIRATORY: Non-labored respirations and equal bilateral excursions. CARDIOVASCULAR: 2+ radial pulses. ABDOMEN: Nontender. MUSCULOSKELETAL: No gross deformity of the lower extremities noted. No clubbing. No cyanosis. SKIN: Good skin turgor. Well perfused. NEUROLOGIC: Cranial nerves II through XII grossly intact. No focal or lateralizing signs. PSYCH: Alert to person. CLINICAL LABS: Reviewed. Hemoglobin down 10.5-9.5 with anemia. PATHOLOGY: Invasive moderately differentiated colon adenocarcinoma of the ascending colon. STUDIES: CT of the abdomen and pelvis independently reviewed of thickening identified on the proximal ascending colon for colonic neoplastic process. No evidence of metastases to liver or adenopathy identified. This is my independent interpretation. ECHO: Ejection fraction 50-55% without moderate pulmonary hypertension or aortic stenosis. ASSESSMENT: 1. Anemia with right colon mass 2. Iron deficiency anemia 3. Recent back injury. PLAN: 1. Iron infusions in progress. 2. Protein supplement with protein shakes performed 3. I answered as many questions as possible with the family including continuing with surgery tomorrow as patient has persistent ongoing anemia and bleeding. 4. Family encouraged to discuss with orthopedic team of vertebral fracture due to patient's ongoing back pain and small window of opportunity to perform kyphoplasty. 5. Patient is elevated risk for surgical procedures due to multiple ongoing ability and comorbidities Objective - Vital Signs Vital signs: Vital Signs Temp 98.3 F 12/25/20 07:47 Pulse 67 12/25/20 07:47 Resp 16 12/25/20 08:00 BP 146/87 12/25/20 07:47 Pulse Ox 94 L 12/25/20 07:47 Intake & Output 12/24/20 12/25/20 12/25/20 18:59 06:59 18:59 Intake Total 100 Output Total 151 301 Balance -51 -301 Intake: IV 100 Sodium Ferric Gluconat- 100 Sucrose 125 mg In Sodium Chloride 0.9% 100 ml @ 100 mls/hr IVPB DAILY [facility] Rx#:[id number] Output: Urine 150 300 Stool 1 1 Other: Voiding Method Bedside Commode Bedside Commode Bedside Commode Urinal Urinal Urinal # Voids 1 4 1 # Bowel Movements 1 1 1 - Labs CBC & Chem 7: 12/24/20 06:42 12/24/20 06:42 Assessment and Plan (1) Colon cancer, ascending Current Visit: Yes Status: Acute Code(s): C18.2 - MALIGNANT NEOPLASM OF ASCENDING COLON SNOMED Code(s): 845589631 (2) Adenocarcinoma Current Visit: Yes Status: Acute Priority: High Code(s): C80.1 - MALIGNANT (PRIMARY) NEOPLASM, UNSPECIFIED SNOMED Code(s): 472790274 (3) Normocytic normochromic anemia Current Visit: Yes Status: Acute Priority: Medium Code(s): D64.9 - ANEMIA, UNSPECIFIED SNOMED Code(s): 07072584
--- NOTE | 2020-12-25 15:22 | P.PN ---
Subjective Patient is complaining of heartburn today. No acute events overnight. Objective - Vital Signs Vital signs: Vital Signs Temp 97.7 F 12/25/20 15:00 Pulse 51 L 12/25/20 15:00 Resp 16 12/25/20 15:00 BP 111/60 12/25/20 15:00 Pulse Ox 96 12/25/20 15:00 Intake & Output 12/24/20 12/25/20 12/25/20 18:59 06:59 18:59 Intake Total 100 Output Total 151 301 Balance -51 -301 Intake: IV 100 Sodium Ferric Gluconat- 100 Sucrose 125 mg In Sodium Chloride 0.9% 100 ml @ 100 mls/hr IVPB DAILY [facility] Rx#:[id number] Output: Urine 150 300 Stool 1 1 Other: Voiding Method Bedside Commode Bedside Commode Bedside Commode Urinal Urinal Urinal # Voids 1 4 1 # Bowel Movements 1 1 1 - Exam General: The patient is awake and alert, in no distress Eye: there is normal conjunctiva bilaterally. Neck: The neck is supple, there is no JVD. Cardiovascular: Normal S1-S2, no S3-S4, no murmurs. Respiratory: Lungs clear to auscultation bilaterally Gastrointestinal: Abdomen is soft, nontender Musculoskeletal: There is no pedal edema. Neurological:. Speech is normal. Skin: Skin is warm and dry - Labs CBC & Chem 7: 12/24/20 06:42 12/24/20 06:42 Assessment and Plan Assessment: Patient is a very pleasant 85-year-old male with a past medical history of glaucoma (legally blind), very hard of hearing, atrial fibrillation on an ticoagulation with Eliquis, hypertension, hyperlipidemia, CAD with previous [place], CHF, CVA 2017, and esophageal ulcer. Patient presented to the emergency department on 12/14/20 with a chief complaint of syncopal episode. Patient was reportedly undergoing physical therapy at [facility] when he suddenly lost consciousness. In the emergency department, labs were completed revealing Normocytic normo chromic anemia with hemoglobin of 10.4, non-anion gap metabolic acidosis with chloride of 180 carbon dioxide of 20, prerenal azotemia with BUN of 58, and elevated troponins but flat at 0.237 and 0.209 and 0.276. Urinalysis was negative for infection and Covid 19 PCR NEGATIVE. Chest x-ray normal findings negative for acute cardiopulmonary process. EKG revealing atrial fibrillation with a controlled ventricular rate of 82 bpm. Patient was admitted under our services with consultation to cardiology. Echocardiogram was completed revealing normal EF between 50 and 55% with mild to moderate aortic valve sclerosis. During hospitalization and RN reported large amounts of black tarry stool and patient had a significant 4 g drop in hemoglobin from 10.4 down to 6.3. Eliquis and aspirin held. Pt required 2 units PRBCs to obtain stabilization of hemoglobin. CT abdomen and pelvis completed revealing prominent circumferential thickening in the region of the distal esophagus, possible 2 cm mural based thickening along the medial wall of the lower ascending colon, sigmoid diverticulosis without acute diverticulitis, a few nonobstructive colliculi in the left kidney, circumferential bladder wall thickening, mild superior endplate deformity of L1, and trace pleural effusions. General surgery was consulted and EGD and colonoscopy on 12/19/20. Colonoscopy showed right colon mass highly concerning for malignancy. Assessment and Plan of Care: Newly diagnosed adenocarcinoma of the right colon: Scheduled for surgery on Saturday. Gen. surgery and oncology following closely. Acute blood loss anemia due to GI bleed with gross melena, Hgb stable Right colon mass, awaiting pathology -Received transfusion of 2 units PRBCs w -Eliquis and Aspirin held. -Protonix 40 mg IVP twice daily -EGD showing gastritis and esophagitis, colonoscopy showing a right colonic mass highly concerning for malignancy awaiting pathology -CT abdomen and pelvis with and without IV contrast revealed prominent circumferential thickening in the region of the distal esophagus, possible 2 cm mural based thickening along the medial wall of the lower ascending colon, sigmoid diverticulosis without acute diverticulitis, a few nonobstructive colliculi in the left kidney, and circumferential bladder wall thickening. Syncope, likely multifactorial secondary to acute blood loss resulting in hypovolemia with elevated troponins Elevated troponin secondary to non-thrombotic troponin leak, hypotension, and acute blood loss anemia -Cardiology consulted, recommending continued medical management with no further cardiac workup or testing at this time. -Echocardiogram was completed revealing normal EF between 50 and 55% with mild to moderate aortic valve sclerosis. -Consult physical therapy Atrial Fibrillation -Heart rate well controlled -Aspirin and Eliquis held due to acute blood loss anemia Uncontrolled lower back pain status post fall [address] report of endplate deformity of L1. Pain medications adjusted. Orthospine consulted and recommending continuation of conservative measures with pain management and plans to order LSO brace. if no improvement may discuss kyphoplasty once pt is medically stable. Fall precautions PT consult. Hypertension Monitor vital signs and continue daily medication regimen. Hyperlipidemia Continue daily medication regimen with atorvastatin 20 mg nightly Glaucoma Continue daily medication regimen with eyedrops. CODE STATUS: Full code DVT prophylaxis: SCDs Discussed with: Patient and RN Anticipated discharge date: Clinical course to determine Anticipated discharge place: Home versus back to [facility] for continued rehab A total of 45 minutes was spent on the care of this complex patient more than 50% of the time was spent in counseling and care coordination.
[2020-12-25] MEDS: DONEPEZIL 10 MG TAB PO SCH ×2 (20:05→20:06)
[2020-12-25] MEDS: LATANOPROST 0.005% OPHTH DROPS 2.5 ML BTL BOTH EYES SCH (20:06)
[2020-12-25] MEDS: ATORVASTATIN 20 MG TAB PO SCH (20:06)
[2020-12-26] MEDS: SODIUM FERRIC GLUCONAT-SUCROSE 125 MG in SODIUM CHLORIDE 0.9% 100 ML IVPB SCH (09:03)
[2020-12-26] MEDS: PILOCARPINE 1% OPHTH DROPS 15 ML BTL RIGHT EYE SCH ×2 (09:04→22:23)
[2020-12-26] MEDS: DILTIAZEM ORAL 30 MG TAB PO SCH ×2 (09:04→21:33)
[2020-12-26] MEDS: TIMOLOL 0.5% OPHTH DROPS 5 ML BTL BOTH EYES SCH ×2 (09:05→22:23)
[2020-12-26 09:06] LABS: HCT 34.8 % (39.0-53.0); HGB 10.9 gm/dL (13.0-17.5); Hypochromasia Moderate; MCH 29.7 pg (25.0-35.0); MCHC 31.3 g/dL (31.0-37.0); MCV 94.7 fL (80.0-100.0); Mean Platelet Volume 7.4; Platelet Count 381 k/uL (150-450); RBC 3.68 m/uL (4.30-5.90); RDW 14.6 % (11.5-15.5); WBC 5.9 k/uL (3.8-10.6)
[2020-12-26 09:25] LABS: African American GFR (CKD) 79 (>60 ml/min/1.73 sqM); Anion Gap 6 mmol/L; Blood Urea Nitrogen 6 mg/dL (9-20); Calcium 9.1 mg/dL (8.4-10.2); Carbon Dioxide 23 mmol/L (22-30); Chloride 109 mmol/L (98-107); Glucose 79 mg/dL (74-99); Non-African American GFR(CKD) 68 (>60 ml/min/1.73 sqM); Potassium 3.9 mmol/L (3.5-5.1); Sodium 138 mmol/L (137-145)
[2020-12-26] MEDS: LIDOCAINE 5% PATCH TOPICAL SCH (09:36)
[2020-12-26] MEDS: MULTIVITAMINS, THERA 1 EACH TAB PO SCH (09:39)
[2020-12-26] MEDS: ASCORBIC ACID 500 MG TAB PO SCH (09:39)
[2020-12-26] MEDS: CHOLECALCIFEROL 25 MCG (1000 IU) TABLET PO SCH (09:39)
[2020-12-26] MEDS: NYSTATIN 100,000 UNIT/ML SUSP 500,000 UNIT/5 ML CUP PO SCH ×4 (10:51→21:34)
[2020-12-26] MEDS ORDERED: HEPARIN SODIUM,PORCINE/PF 5,000 UNIT/0.5 ML SYRINGE SQ ONE (11:33)
[2020-12-26] MEDS ORDERED: DEXAMETHASONE SOD PHOSPHATE 4 MG/ML 1 ML VIAL IV ONE (11:38)
[2020-12-26] MEDS ORDERED: LACTATED RINGERS 1,000 ML IV ONE ×2 (11:38→13:30)
[2020-12-26] MEDS ORDERED: ONDANSETRON 4 MG/2 ML VIAL IVP ONE (11:38)
[2020-12-26] MEDS ORDERED: HEPARIN SODIUM,PORCINE 5,000 UNIT/ML 1 ML VIAL SQ ONE (11:57)
[2020-12-26] MEDS ORDERED: ROCURONIUM 10 MG/ML (5 ML VIAL) IV ONE (12:35)
[2020-12-26] MEDS ORDERED: NEOSTIGMINE 1 MG/ML 10 ML VIAL ONE (12:35)
[2020-12-26] MEDS ORDERED: SUCCINYLCHOLINE CHLORIDE 100 MG/5 ML SYR IV ONE (12:35)
[2020-12-26] MEDS ORDERED: ETOMIDATE 2 MG/ML 10 ML VIAL ONE (12:35)
[2020-12-26] MEDS ORDERED: LIDOCAINE 1% INJ 10MG/ML (20 ML MDV) ONE (12:35)
[2020-12-26] MEDS ORDERED: fentaNYL (PF) 50 MCG/ML 2 ML AMP ONE (12:35)
[2020-12-26] MEDS ORDERED: GLYCOPYRROLATE 0.2 MG/ML 2 ML VIAL ONE (12:35)
[2020-12-26] MEDS ORDERED: ONDANSETRON 4 MG/2 ML VIAL IVP PRN (13:31)
[2020-12-26] MEDS ORDERED: METOCLOPRAMIDE 5 MG/ML 2 ML VIAL IVP PRN (13:31)
--- NOTE | 2020-12-26 13:31 | P.PN ---
Subjective Patient is doing well today. Family at bedside. All of their questions answered to the satisfaction. Objective - Vital Signs Vital signs: Vital Signs Temp 98.6 F 12/26/20 11:01 Pulse 50 L 12/26/20 11:01 Resp 16 12/26/20 11:01 BP 120/60 12/26/20 11:01 Pulse Ox 97 12/26/20 11:01 Intake & Output 12/25/20 12/26/20 12/26/20 18:59 06:59 18:59 Intake Total 1535 450 Output Total 1 1 350 Balance 1534 -1 100 Intake: IV 450 Intake, IV Titration 925 Amount Sodium Chloride 0.9% 1, 825 000 ml @ 75 mls/hr IV . [id number] [facility] Rx#:[id number] Sodium Ferric Gluconat- 100 Sucrose 125 mg In Sodium Chloride 0.9% 100 ml @ 100 mls/hr IVPB DAILY [facility] Rx#:[id number] Oral 610 Output: Urine 350 Stool 1 1 Other: Voiding Method Bedside Commode Bedside Commode Bedside Commode Urinal Urinal Urinal # Voids 3 5 # Bowel Movements 1 - Exam General: The patient is awake and alert, in no distress Eye: there is normal conjunctiva bilaterally. Neck: The neck is supple, there is no JVD. Cardiovascular: Normal S1-S2, no S3-S4, no murmurs. Respiratory: Lungs clear to auscultation bilaterally Gastrointestinal: Abdomen is soft, nontender Musculoskeletal: There is no pedal edema. Neurological:. Speech is normal. Skin: Skin is warm and dry - Labs CBC & Chem 7: 12/26/20 08:24 12/26/20 08:24 Labs: Abnormal Lab Results - Last 24 Hours (Table) 12/26/20 12/26/20 Range/Units 08:24 08:24 RBC 3.68 L (4.30-5.90) m/uL Hgb 10.9 L (13.0-17.5) gm/dL Hct 34.8 L (39.0-53.0) % Chloride 109 H (98-107) mmol/L BUN 6 L (9-20) mg/dL Assessment and Plan Assessment: Patient is a very pleasant 85-year-old male with a past medical history of glaucoma (legally blind), very hard of hearing, atrial fibrillation on anticoagulation with Eliquis, hypertension, hyperlipidemia, CAD with previous [place], CHF, CVA 2017, and esophageal ulcer. Patient presented to the emergency department on 12/14/20 with a chief complaint of syncopal episode. Patient was reportedly undergoing physical therapy at [facility] when he suddenly lost consc iousness. In the emergency department, labs were completed revealing Normocytic normochromic anemia with hemoglobin of 10.4, non-anion gap metabolic acidosis with chloride of 180 carbon dioxide of 20, prerenal azotemia with BUN of 58, and elevated troponins but flat at 0.237 and 0.209 and 0.276. Urinalysis was negative for infection and Covid 19 PCR NEGATIVE. Chest x-ray normal findings negative for acute cardiopulmonary process. EKG revealing atrial fibrillation with a controlled ventricular rate of 82 bpm. Patient was admitted under our services with consultation to cardiology. Echocardiogram was completed revealing normal EF between 50 and 55% with mild to moderate aortic valve sc lerosis. During hospitalization and RN reported large amounts of black tarry stool and patient had a significant 4 g drop in hemoglobin from 10.4 down to 6.3. Eliquis and aspirin held. Pt required 2 units PRBCs to obtain stabilization of hemoglobin. CT abdomen and pelvis completed revealing prominent circumferential thickening in the region of the distal esophagus, possible 2 cm mural based th ickening along the medial wall of the lower ascending colon, sigmoid diverticulosis without acute diverticulitis, a few nonobstructive colliculi in the left kidney, circumferential bladder wall thickening, mild superior endplate deformity of L1, and trace pleural effusions. General surgery was consulted and EGD and colonoscopy on 12/19/20. Colonoscopy showed right colon mass highly concerning for malignancy. Assessment and Plan of Care: Newly diagnosed adenocarcinoma of the right colon: Scheduled for surgery on Saturday. Gen. surgery and oncology following closely. Acute blood loss anemia due to GI bleed with gross melena, Hgb stable Right colon mass, awaiting pathology -Received transfusion of 2 units PRBCs w -Eliquis and Aspirin held. -Protonix 40 mg IVP twice daily -EGD showing gastritis and esophagitis, colonoscopy showing a right colonic mass highly concerning for malignancy awaiting pathology -CT abdomen and pelvis with and without IV contrast revealed prominent circumferential thickening in the region of the distal esophagus, possible 2 cm mural based thickening along the medial wall of the lower ascending colon, sigmoid diverticulosis without acute diverticulitis, a few nonobstructive colliculi in the left kidney, and circumferential bladder wall thickening. Syncope, likely multifactorial secondary to acute blood loss resulting in hypovolemia with elevated troponins Elevated troponin secondary to non-thrombotic troponin leak, hypotension, and acute blood loss anemia -Cardiology consulted, recommending continued medical management with no further cardiac workup or testing at this time. -Echocardiogram was completed revealing normal EF between 50 and 55% with mild to moderate aortic valve sclerosis. -Consult physical therapy Atrial Fibrillation -Heart rate well controlled -Aspirin and Eliquis held due to acute blood loss anemia Uncontrolled lower back pain status post fall [address] report of endplate deformity of L1. Pain medications adjusted. Orthospine consulted and recommending continuation of conservative measures with pain management and plans to order LSO brace. if no improvement may discuss kyphoplasty once pt is medically stable. Fall precautions PT consult. Hypertension Monitor vital signs and continue daily medication regimen. Hyperlipidemia Continue daily medication regimen with atorvastatin 20 mg nightly Glaucoma Continue daily medication regimen with eyedrops. CODE STATUS: Full code DVT prophylaxis: SCDs Discussed with: Patient and RN Anticipated discharge date: Clinical course to determine Anticipated discharge place: Home versus back to [facility] for continued rehab A total of 45 minutes was spent on the care of this complex patient more than 50% of the time was spent in counseling and care coordination.
--- NOTE | 2020-12-26 13:31 | P.OP ---
Date of Procedure: 12/26/20 Preoperative Diagnosis: Right colon cancer Postoperative Diagnosis: Right colon cancer Procedure(s) Performed: Right colectomy Partial omentectomy Anesthesia: MADDIE Surgeon: Dayron Gauthier Estimated Blood Loss (ml): 25 Pathology: other (Right colon, omentum) Condition: stable Disposition: PACU Description of Procedure: The patient's placed on the operative table in the supine position. He received general anterior tracheal tube anesthesia. His abdomen was prepped and draped usual sterile fashion. Choudhary cath was placed. The abdomen was entered through midline incision. The right colon was quite floppy and mobile. It was brought up in the wound. The liver appeared normal. The tumor was palpated in the mid right colon. At this point the terminal ileum was transected with a GI stapler. Then the distal right colon was transected with a GI stapler. Using the Enseal device the mesentery the bowel was divided. The specimens of pathology. A portion of omentum was sent with specimen. A [id number] functional end-to-end staple anastomosis created using KIM and TA stapler. A 3-0 GI silk sutures using a crotch stitch. The abdomen there is no bleeding seen. The fascia is closed loop #1 PDS suture. Scope was stable. Patient top she will was sent to recovery room in stable condition.
[2020-12-26] MEDS ORDERED: METOPROLOL TARTRATE 5 MG/5 ML VIAL IVP ONE ×2 (13:46→13:56)
[2020-12-26] MEDS ORDERED: HYDROmorphone 0.5 MG/0.5 ML SYRINGE IVP ONE ×4 (14:01→14:56)
[2020-12-26] MEDS: SODIUM CHLORIDE 0.9% 1,000 ML IV SCH ×2 (15:36→22:25)
[2020-12-26] MEDS: D5-0.45% NACL WITH KCL 20MEQ/L 1,000 ML IV SCH ×2 (15:45→23:28)
[2020-12-26] MEDS ORDERED: hydrALAZINE HCL 20 MG/ML 1 ML VIAL IVP STA (16:36)
[2020-12-26] MEDS: KETOROLAC 15 MG/ML 1 ML VIAL IVP PRN ×2 (16:40→21:34)
--- NOTE | 2020-12-26 18:59 | P.PN ---
Subjective Progress Note Date: 12/26/20 Principal diagnosis: Adenocarcinoma, likely colon Family at bedside and patient returned to 522 post operatively. Lethargic and in pain. Objective - Vital Signs Vital signs: Vital Signs Temp 99 F 12/26/20 05:00 Pulse 54 L 12/26/20 10:14 Resp 20 12/26/20 05:00 BP 137/66 12/26/20 10:14 Pulse Ox 94 L 12/26/20 10:14 Intake & Output 12/25/20 12/26/20 12/26/20 18:59 06:59 18:59 Intake Total 1535 Output Total 1 1 Balance 1534 -1 Intake: Intake, IV Titration 925 Amount Sodium Chloride 0.9% 1, 825 000 ml @ 75 mls/hr IV . [id number] [facility] Rx#:[id number] Sodium Ferric Gluconat- 100 Sucrose 125 mg In Sodium Chloride 0.9% 100 ml @ 100 mls/hr IVPB DAILY [facility] Rx#:[id number] Oral 610 Output: Stool 1 1 Other: Voiding Method Bedside Commode Bedside Commode Urinal Urinal # Voids 3 5 # Bowel Movements 1 - Exam Fatigued. lethargic Awakens to stimulates Very [place] NAD Lungs: diminished, no increased effort Heart: Reg irr Abdomen: Soft dist, In pain, evidence of surgical intervention Ext: No edema - Labs CBC & Chem 7: 12/26/20 08:24 12/26/20 08:24 Labs: Abnormal Lab Results - Last 24 Hours (Table) 12/26/20 12/26/20 Range/Units 08:24 08:24 RBC 3.68 L (4.30-5.90) m/uL Hgb 10.9 L (13.0-17.5) gm/dL Hct 34.8 L (39.0-53.0) % Chloride 109 H (98-107) mmol/L BUN 6 L (9-20) mg/dL Assessment and Plan (1) Adenocarcinoma Narrative/Plan: Moderately differentiated colon, CT revealed some distal esophageal thickening. there appears to be no further evidence of metastatic disease Current Visit: Yes Status: Acute Priority: High Code(s): C80.1 - MALIGNANT (PRIMARY) NEOPLASM, UNSPECIFIED SNOMED Code(s): 359257968 (2) Dehydration Current Visit: Yes Status: Acute Code(s): E86.0 - DEHYDRATION SNOMED Code(s): 69374656 (3) Normocytic normochromic anemia Current Visit: Yes Status: Acute Priority: Medium Code(s): D64.9 - ANEMIA, UNSPECIFIED SNOMED Code(s): 55458484 (4) Thrush, oral Current Visit: Yes Status: Acute Priority: High Code(s): B37.0 - CANDIDAL STOMATITIS SNOMED Code(s): 38249672 Plan: Status Post Right Colectomy with anastamosis. Pain Incentive spirometer at bedside. Spoke with Surgery, mesentary LN removed Omental Sampling was sent per note. Plan at this time is to await pathology result and send tissue for further testing NGS. Thickening in Distal Esophagus, EGD was performed and negative for malignancy, revealing esophagitis and esonophils. Discussed the current plan on waiting for all information for further recommendations. In the interim will control pain, encourage Incentive spirometer and increase activity.
[2020-12-26] MEDS ORDERED: ALVIMOPAN 12 MG CAPSULE PO SCH (21:00)
[2020-12-26] MEDS: ATORVASTATIN 20 MG TAB PO SCH (21:33)
[2020-12-26] MEDS: LATANOPROST 0.005% OPHTH DROPS 2.5 ML BTL BOTH EYES SCH (22:23)
[2020-12-26] MEDS: HYDROmorphone 0.5 MG/0.5 ML SYRINGE IVP PRN (23:32)
[2020-12-27 04:32] LABS: Basophils % (A) 0 %; Eosinophils % (A) 0 %; HCT 30.8 % (39.0-53.0); HGB 9.9 gm/dL (13.0-17.5); Hypochromasia Moderate; Lymphocytes # (A) 0.5 k/uL (1.0-4.8); Lymphocytes % (A) 2 %; MCH 29.6 pg (25.0-35.0); MCHC 32.2 g/dL (31.0-37.0); Mean Platelet Volume 7.9; Monocytes # (A) 0.7 k/uL (0-1.0); Monocytes % (A) 3 %; Neutrophils # (A) 19.5 k/uL (1.3-7.7); Neutrophils % (A) 94 %; Platelet Count 370 k/uL (150-450); RBC 3.35 m/uL (4.30-5.90); RDW 14.8 % (11.5-15.5); WBC 20.7 k/uL (3.8-10.6)
[2020-12-27] MEDS: D5-0.45% NACL WITH KCL 20MEQ/L 1,000 ML IV SCH ×2 (08:16→16:37)
[2020-12-27] MEDS: SODIUM CHLORIDE 0.9% 1,000 ML IV SCH (08:19)
[2020-12-27] MEDS: ASCORBIC ACID 500 MG TAB PO SCH (08:36)
[2020-12-27] MEDS: MULTIVITAMINS, THERA 1 EACH TAB PO SCH (08:36)
[2020-12-27] MEDS: CHOLECALCIFEROL 25 MCG (1000 IU) TABLET PO SCH (08:36)
[2020-12-27] MEDS: LIDOCAINE 5% PATCH TOPICAL SCH (08:37)
[2020-12-27] MEDS: NYSTATIN 100,000 UNIT/ML SUSP 500,000 UNIT/5 ML CUP PO SCH ×4 (08:38→21:35)
[2020-12-27] MEDS: ALVIMOPAN 12 MG CAPSULE PO SCH ×2 (08:38→21:29)
[2020-12-27] MEDS: DILTIAZEM ORAL 30 MG TAB PO SCH ×2 (08:38→21:29)
[2020-12-27] MEDS: TIMOLOL 0.5% OPHTH DROPS 5 ML BTL BOTH EYES SCH ×2 (08:41→21:29)
[2020-12-27] MEDS: PILOCARPINE 1% OPHTH DROPS 15 ML BTL RIGHT EYE SCH ×2 (08:41→21:29)
[2020-12-27] MEDS: HYDROmorphone 0.5 MG/0.5 ML SYRINGE IVP PRN ×2 (08:44→20:18)
[2020-12-27 10:13] LABS: African American GFR (CKD) 79.2 (60.0-200.0); Anion Gap 8.2 mmol/L (4.00-12.00); BUN/Creat Ratio 9.1 Ratio (12.00-20.00); Blood Urea Nitrogen 9.1 mg/dL (9.0-27.0); Calcium 8.4 mg/dL (8.7-10.3); Carbon Dioxide 21.8 mmol/L (21.6-31.8); Non-African American GFR(CKD) 68.3 (60.0-200.0); Potassium 4.3 mmol/L (3.5-5.5)
[2020-12-27] MEDS: KETOROLAC 15 MG/ML 1 ML VIAL IVP SCH ×3 (12:09→23:31)
--- NOTE | 2020-12-27 14:59 | P.PN ---
Subjective Progress Note Date: 12/27/20 CHIEF COMPLAINT: GI bleed HISTORY OF PRESENT ILLNESS: Patient is postop day #1 status post right colectomy for colon cancer. Patient does have abdominal pain. Pain appears mostly with movement. Pain medications are helping. Denies any flatus or BM. Denies any nausea or vomiting. He is currently on a clear liquid diet. With minimal oral intake. WBC elevated at 20.7 he is afebrile. Hemoglobin is 9.9 Patient seen and examined with Dr. love PHYSICAL EXAM: VITAL SIGNS: Reviewed. GENERAL: Well-developed in no acute distress. HEENT: No sclera icterus. Extraocular movements grossly intact. Moist buccal mucosa. Head is atraumatic, normocephalic. ABDOMEN: Soft. Nondistended. Incisional dressing with some blood saturation noted NEUROLOGIC: Lying in bed comfortably. Hard of hearing ASSESSMENT: 1. Acute GI bleed with acute blood loss anemia likely due to right colon mass 2. Colon cancer with pathology positive for adenocarcinoma PLAN: -Continue pain medication as needed -toradol switched to scheduled -Antibiotics added for leukocytosis -Repeat CBC in a.m. -Continue IV fluids -Continue sips of clear liquids -Encouraged patient to use incentive spirometer -Encouraged patient to increase activity level -DVT prophylaxis SCDs Physician Computer Systems Design Analyst note has been reviewed by physician. Signing provider agrees with the documented findings, assessment, and plan of care. Objective - Vital Signs Vital signs: Vital Signs Temp 98.8 F 12/27/20 12:28 Pulse 59 L 12/27/20 12:28 Resp 19 12/27/20 12:28 BP 135/68 12/27/20 12:28 Pulse Ox 99 12/27/20 12:28 Intake & Output 12/26/20 12/27/20 12/27/20 18:59 06:59 18:59 Intake Total 1350 Output Total 550 Balance 800 Intake: IV 1350 Output: Urine 525 Estimated Blood Loss 25 Other: Voiding Method Bedside Commode Indwelling Catheter Indwelling Catheter Urinal - Labs CBC & Chem 7: 12/27/20 03:32 12/27/20 03:32 Labs: Abnormal Lab Results - Last 24 Hours (Table) 12/27/20 12/27/20 Range/Units 03:32 03:32 WBC 20.7 H (3.8-10.6) k/uL RBC 3.35 L (4.30-5.90) m/uL Hgb 9.9 L (13.0-17.5) gm/dL Hct 30.8 L (39.0-53.0) % Neutrophils # 19.5 H (1.3-7.7) k/uL Lymphocytes # 0.5 L (1.0-4.8) k/uL BUN/Creatinine Ratio 9.10 L (12.00-20.00) Ratio Glucose 169 H (70-110) mg/dL Calcium 8.4 L (8.7-10.3) mg/dL
[2020-12-27] MEDS: LEVOFLOXACIN 500MG-D5W PMX 500 MG in DEXTROSE/WATER 1 100ML.BAG IVPB SCH (15:16)
[2020-12-27] MEDS: metroNIDAZOLE-NS PMX 500 MG in SALINE 1 100ML.BAG IVPB SCH ×2 (16:37→23:32)
--- NOTE | 2020-12-27 17:05 | P.PN ---
Subjective Patient is doing well today. His is at bedside. Objective - Vital Signs Vital signs: Vital Signs Temp 99.1 F 12/27/20 15:18 Pulse 61 12/27/20 15:18 Resp 17 12/27/20 15:18 BP 121/63 12/27/20 15:18 Pulse Ox 100 12/27/20 15:18 Intake & Output 12/26/20 12/27/20 12/27/20 18:59 06:59 18:59 Intake Total 1350 Output Total 550 Balance 800 Intake: IV 1350 Output: Urine 525 Estimated Blood Loss 25 Other: Voiding Method Bedside Commode Indwelling Catheter Indwelling Catheter Urinal - Exam General: The patient is awake and alert, in no distress Eye: there is normal conjunctiva bilaterally. Neck: The neck is supple, there is no JVD. Cardiovascular: Normal S1-S2, no S3-S4, no murmurs. Respiratory: Lungs clear to auscultation bilaterally Gastrointestinal: Abdomen is soft, there is moderate tenderness to palpation. Midline incision is covered with dressing soaked with blood Musculoskeletal: There is no pedal edema. Neurological:. Speech is normal. Skin: Skin is warm and dry - Labs CBC & Chem 7: 12/27/20 03:32 12/27/20 03:32 Labs: Abnormal Lab Results - Last 24 Hours (Table) 12/27/20 12/27/20 Range/Units 03:32 03:32 WBC 20.7 H (3.8-10.6) k/uL RBC 3.35 L (4.30-5.90) m/uL Hgb 9.9 L (13.0-17.5) gm/dL Hct 30.8 L (39.0-53.0) % Neutrophils # 19.5 H (1.3-7.7) k/uL Lymphocytes # 0.5 L (1.0-4.8) k/uL BUN/Creatinine Ratio 9.10 L (12.00-20.00) Ratio Glucose 169 H (70-110) mg/dL Calcium 8.4 L (8.7-10.3) mg/dL Assessment and Plan Assessment: Patient is a very pleasant 85-year-old male with a past medical history of glaucoma (legally blind), very hard of hearing, atrial fibrillation on anticoagulation with Eliquis, hypertension, hyperlipidemia, CAD with previous [place], CHF, CVA 2017, and esophageal ulcer. Patient presented to the emergency department on 12/14/20 with a chief complaint of syncopal episode. Patient was reportedly undergoing physical therapy at [facility] when he suddenly lost consciousness. In the emergency department, labs were completed revealing Normocytic normochromic anemia with hemoglobin of 10.4, non-anion gap metabolic acidosis with chloride of 180 carbon dioxide of 20, prerenal azotemia with BUN of 58, and elevated troponins but flat at 0.237 and 0.209 and 0.276. Urinalysis was negative for infection and Covid 19 PCR NEGATIVE. Chest x-ray normal findings negative for acute cardiopulmonary process. EKG revealing atrial fibrillation with a controlled ventricular rate of 82 bpm. Patient was admitted under our services with consultation to cardiology. Echocardiogram was completed revealing normal EF between 50 and 55% with mild to moderate aortic valve sclerosis. During hospitalization and RN reported large amounts of black tarry stool and patient had a significant 4 g drop in hemoglobin from 10.4 down to 6.3. Eliquis and aspirin held. Pt required 2 units PRBCs to obtain stabilization of hemoglobin. CT abdomen and pelvis completed revealing prominent circumferential thickening in the region of the distal esophagus, possible 2 cm mural based thickening along the medial wall of the lower ascending colon, sigmoid diverticulosis without acute diverticulitis, a few nonobstructive colliculi in the left kidney, circumferential bladder wall thickening, mild superior endplate deformity of L1, and trace pleural effusions. General surgery was consulted and EGD and colonoscopy on 12/19/20. Colonoscopy showed right colon mass highly concerning for malignancy. Patient underwent ri ght colectomy on 12/26 Assessment and Plan of Care: Newly diagnosed adenocarcinoma of the right colon: Status post right colectomy Acute blood loss anemia due to GI bleed with gross melena, Hgb stable Right colon mass, awaiting pathology -Received transfusion of 2 units PRBCs during this admission -Eliquis and Aspirin held. May consider resumption in the next day or 2 -Protonic switched to oral -EGD showing gastritis and esophagitis, colonoscopy showing a right colonic mass highly concerning for malignancy awaiting pathology -CT abdomen and pelvis with and without IV contrast revealed prominent circumferential thickening in the region of the distal esophagus, possible 2 cm mural based thickening along the medial wall of the lower ascending colon, sigmoid diverticulosis without acute diverticulitis, a few nonobstructive colliculi in the left kidney, and circumferential bladder wall thickening. Syncope on presentation, likely multifactorial secondary to acute blood loss resulting in hypovolemia with elevated troponins Elevated troponin secondary to non-thrombotic troponin leak, hypotension, and acute blood loss anemia -Cardiology consulted, recommending continued medical management with no further cardiac workup or testing at this time. -Echocardiogram was completed revealing normal EF between 50 and 55% with mild to moderate aortic valve sclerosis. -Consult physical therapy Atrial Fibrillation -Heart rate well controlled -Aspirin and Eliquis held due to acute blood loss anemia Uncontrolled lower back pain status post fall [address] report of endplate deformity of L1. Pain medications adjusted. Orthospine consulted and recommending continuation of conservative measures with pain management and plans to order LSO brace. if no improvement may discuss kyphoplasty once pt is medically stable. Fall precautions PT consult. Hypertension Monitor vital signs and continue daily medication regimen. Hyperlipidemia Continue daily medication regimen with atorvastatin 20 mg nightly Glaucoma Continue daily medication regimen with eyedrops. CODE STATUS: Full code DVT prophylaxis: SCDs Discussed with: Patient and RN Anticipated discharge date: Clinical course to determine Anticipated discharge place: Home versus back to [facility] for continued rehab
[2020-12-27] MEDS: DONEPEZIL 10 MG TAB PO SCH (20:17)
[2020-12-27] MEDS: ATORVASTATIN 20 MG TAB PO SCH (20:18)
[2020-12-27] MEDS: LATANOPROST 0.005% OPHTH DROPS 2.5 ML BTL BOTH EYES SCH (21:29)
[2020-12-28] MEDS: D5-0.45% NACL WITH KCL 20MEQ/L 1,000 ML IV SCH ×4 (02:40→20:56)
[2020-12-28] MEDS: ONDANSETRON 4 MG/2 ML VIAL IVP PRN (04:12)
[2020-12-28] MEDS: KETOROLAC 15 MG/ML 1 ML VIAL IVP SCH ×4 (05:35→23:51)
[2020-12-28 07:24] LABS: Basophils % (A) 0 %; Eosinophils % (A) 0 %; HCT 27.4 % (39.0-53.0); Hypochromasia Moderate; Lymphocytes # (A) 0.6 k/uL (1.0-4.8); Lymphocytes % (A) 7 %; MCH 30.5 pg (25.0-35.0); MCV 92.5 fL (80.0-100.0); Mean Platelet Volume 7.7; Monocytes # (A) 0.5 k/uL (0-1.0); Monocytes % (A) 5 %; Neutrophils # (A) 7.9 k/uL (1.3-7.7); Neutrophils % (A) 86 %; Platelet Count 289 k/uL (150-450); RBC 2.96 m/uL (4.30-5.90); RDW 15.1 % (11.5-15.5); WBC 9.1 k/uL (3.8-10.6)
[2020-12-28] MEDS: NYSTATIN 100,000 UNIT/ML SUSP 500,000 UNIT/5 ML CUP PO SCH ×4 (08:25→20:56)
[2020-12-28] MEDS: CHOLECALCIFEROL 25 MCG (1000 IU) TABLET PO SCH (08:25)
[2020-12-28] MEDS: MULTIVITAMINS, THERA 1 EACH TAB PO SCH (08:26)
[2020-12-28] MEDS: ASCORBIC ACID 500 MG TAB PO SCH (08:26)
[2020-12-28] MEDS: ALVIMOPAN 12 MG CAPSULE PO SCH ×2 (08:26→20:56)
[2020-12-28] MEDS: DILTIAZEM ORAL 30 MG TAB PO SCH ×2 (08:26→20:56)
[2020-12-28] MEDS: LIDOCAINE 5% PATCH TOPICAL SCH (08:26)
[2020-12-28] MEDS: PANTOPRAZOLE 40 MG TABLET PO SCH (08:26)
[2020-12-28] MEDS: TIMOLOL 0.5% OPHTH DROPS 5 ML BTL BOTH EYES SCH (08:29)
[2020-12-28] MEDS: PILOCARPINE 1% OPHTH DROPS 15 ML BTL RIGHT EYE SCH ×2 (08:29→20:57)
[2020-12-28] MEDS: metroNIDAZOLE-NS PMX 500 MG in SALINE 1 100ML.BAG IVPB SCH (09:05)
[2020-12-28 10:23] LABS: ALT 17 U/L (4-49); AST 27 U/L (17-59); African American GFR (CKD) 80 (>60 ml/min/1.73 sqM); Albumin 2.7 g/dL (3.5-5.0); Albumin/Globulin Ratio 1.1; Alkaline Phosphatase 68 U/L (38-126); Anion Gap 7 mmol/L; Blood Urea Nitrogen 8 mg/dL (9-20); Calcium 8.8 mg/dL (8.4-10.2); Carbon Dioxide 21 mmol/L (22-30); Chloride 109 mmol/L (98-107); Globulin 2.5 g/dL; Glucose 162 mg/dL (74-99); Non-African American GFR(CKD) 69 (>60 ml/min/1.73 sqM); Sodium 137 mmol/L (137-145); Total Bilirubin 0.4 mg/dL (0.2-1.3); Total Protein 5.2 g/dL (6.3-8.2)
[2020-12-28 11:14] LABS: African American GFR (CKD) 77.3 (60.0-200.0); Anion Gap 6.9 mmol/L (4.00-12.00); BUN/Creat Ratio 8.28 Ratio (12.00-20.00); Blood Urea Nitrogen 8.5 mg/dL (9.0-27.0); Calcium 8.3 mg/dL (8.7-10.3); Carbon Dioxide 21.1 mmol/L (21.6-31.8); Magnesium 1.7 mg/dL (1.5-2.4); Non-African American GFR(CKD) 66.7 (60.0-200.0); Potassium 4.4 mmol/L (3.5-5.5)
[2020-12-28] MEDS: HEPARIN SODIUM,PORCINE/PF 5,000 UNIT/0.5 ML SYRINGE SQ SCH ×2 (11:49→20:57)
[2020-12-28] MEDS: LEVOFLOXACIN 500MG-D5W PMX 500 MG in DEXTROSE/WATER 1 100ML.BAG IVPB SCH (13:32)
--- NOTE | 2020-12-28 15:10 | P.PN ---
Subjective Progress Note Date: 12/28/20 CHIEF COMPLAINT: GI bleed HISTORY OF PRESENT ILLNESS: Patient is postop day #2 status post right colectomy for colon cancer. Patient reports his pain is better controlled today. He denies any nausea or vomiting. He is reporting flatus. Denies any BM. Afebrile WBC 9.1 down from 20.7 and hemoglobin 9.0 Patient seen and examined with Dr. love PHYSICAL EXAM: VITAL SIGNS: Reviewed. GENERAL: Well-developed in no acute distress. HEENT: No sclera icterus. Extraocular movements grossly intact. Moist buccal mucosa. Head is atraumatic, normocephalic. ABDOMEN: Soft. Nondistended. Incisional site clean dry and intact NEUROLOGIC: Lying in bed comfortably. Hard of hearing ASSESSMENT: 1. Colon cancer status post right colectomy 2. Acute GI bleed with acute blood loss anemia likely due to right colon mass 3. Leukocytosis resolved PLAN: -Continue pain medication as needed -Continue antibiotics -Continue IV fluids -Continue clear liquids -Encouraged patient to use incentive spirometer -Encouraged patient to increase activity level -Plan to discontinue Choudhary catheter tomorrow -DVT prophylaxis subcu heparin added -GI prophylaxis Protonix Physician Cob Sawyer note has been reviewed by physician. Signing provider agrees with the documented findings, assessment, and plan of care. Objective - Vital Signs Vital signs: Vital Signs Temp 98.6 F 12/28/20 05:01 Pulse 49 L 12/28/20 10:21 Resp 18 12/28/20 05:01 BP 97/53 12/28/20 10:21 Pulse Ox 100 12/28/20 05:01 Intake & Output 12/27/20 12/28/20 12/28/20 18:59 06:59 18:59 Output Total 900 Balance -900 Output: Urine 900 Other: Voiding Method Indwelling Catheter Indwelling Catheter - Labs CBC & Chem 7: 12/28/20 06:56 12/28/20 09:41 Labs: Abnormal Lab Results - Last 24 Hours (Table) 12/28/20 12/28/20 12/28/20 Range/Units 06:56 06:56 09:41 RBC 2.96 L (4.30-5.90) m/uL Hgb 9.0 L (13.0-17.5) gm/dL Hct 27.4 L (39.0-53.0) % Neutrophils # 7.9 H (1.3-7.7) k/uL Lymphocytes # 0.6 L (1.0-4.8) k/uL Chloride 110 H 109 H (96-109) mmol/L Carbon Dioxide 21.1 L 21 L (21.6-31.8) mmol/L BUN 8.5 L 8 L (9.0-27.0) mg/dL BUN/Creatinine Ratio 8.28 L (12.00-20.00) Ratio Glucose 122 H 162 H (70-110) mg/dL Calcium 8.3 L (8.7-10.3) mg/dL Total Protein 5.2 L (6.3-8.2) g/dL Albumin 2.7 L (3.5-5.0) g/dL
[2020-12-28] MEDS: metroNIDAZOLE 500 MG TAB PO SCH ×2 (16:32→23:51)
[2020-12-28] MEDS: DONEPEZIL 10 MG TAB PO SCH (20:56)
[2020-12-28] MEDS: LATANOPROST 0.005% OPHTH DROPS 2.5 ML BTL BOTH EYES SCH (20:57)
[2020-12-28] MEDS: SENNOSIDES-DOCUSATE SODIUM 1 EACH TAB PO SCH (20:57)
[2020-12-28] MEDS: ATORVASTATIN 20 MG TAB PO SCH (20:57)
--- NOTE | 2020-12-28 21:47 | P.PN ---
Subjective Progress Note Date: 12/28/20 Principal diagnosis: Adenocarcinoma, likely colon Resting COmfortably, Family at bedside. He did sit up in chair today, continue to encourage increased activity, deep breathing, and adequate protein/nutrition. Objective - Vital Signs Vital signs: Vital Signs Temp 98.6 F 12/28/20 05:01 Pulse 57 L 12/28/20 05:01 Resp 18 12/28/20 05:01 BP 109/54 12/28/20 05:01 Pulse Ox 100 12/28/20 05:01 Intake & Output 12/27/20 12/28/20 12/28/20 18:59 06:59 18:59 Output Total 900 Balance -900 Output: Urine 900 Other: Voiding Method Indwelling Catheter Indwelling Catheter - Exam Fatigued. lethargic Awakens to stimulates Very [place] NAD Lungs: diminished, no increased effort Heart: Reg irr Abdomen: Soft dist, In pain, evidence of surgical intervention Ext: No edema - Labs CBC & Chem 7: 12/28/20 06:56 12/28/20 09:41 Labs: Abnormal Lab Results - Last 24 Hours (Table) 12/27/20 12/28/20 Range/Units 03:32 06:56 RBC 2.96 L (4.30-5.90) m/uL Hgb 9.0 L (13.0-17.5) gm/dL Hct 27.4 L (39.0-53.0) % Neutrophils # 7.9 H (1.3-7.7) k/uL Lymphocytes # 0.6 L (1.0-4.8) k/uL BUN/Creatinine Ratio 9.10 L (12.00-20.00) Ratio Glucose 169 H (70-110) mg/dL Calcium 8.4 L (8.7-10.3) mg/dL Assessment and Plan (1) Adenocarcinoma Narrative/Plan: Moderately differentiated colon, CT revealed some distal esophageal thickening. there appears to be no further evidence of metastatic disease Current Visit: Yes Status: Acute Priority: High Code(s): C80.1 - MALIGNANT (PRIMARY) NEOPLASM, UNSPECIFIED SNOMED Code(s): 454372907 (2) Dehydration Current Visit: Yes Status: Acute Code(s): E86.0 - DEHYDRATION SNOMED Code(s): 63964753 (3) Normocytic normochromic anemia Current Visit: Yes Status: Acute Priority: Medium Code(s): D64.9 - ANEMIA, UNSPECIFIED SNOMED Code(s): 93032122 (4) Thrush, oral Current Visit: Yes Status: Acute Priority: High Code(s): B37.0 - CANDIDAL STOMATITIS SNOMED Code(s): 63425056 Plan: Status Post Right Colectomy with anastamosis. Pain Incentive spirometer at bedside. Spoke with Surgery, mesentary LN removed Omental Sampling was sent per note. Plan at this time is to await pathology result and send tissue for further testing NGS. Thickening in Distal Esophagus, EGD was performed and negative for malignancy, revealing esophagitis and esonophils. Discussed the current plan on waiting for all information for further recommendations. In the interim will control pain, encourage Incentive spirometer and increase activity. Increasing overall performance will aide recovery, PT/OT are on board and planning to continue work with patient. He is complaiing of pain, narcotic pain medications alternated with Toradol are helping however does increase drowiness. Bowel regimen added for narcotic induced constipation post op day 3.
--- NOTE | 2020-12-28 22:02 | P.PN ---
Subjective Progress Note Date: 12/28/20 (delayed charting seen at 1430) Patient isan 85 yo CM with a hx of glaucoma, [place], A fib with eliquis, and HTN who presented with multiple syncopal episodes. In the emergency department, labs were completed revealing Normocytic normochromic anemia with hemoglobin of 10.4, non-anion gap metabolic acidosis with chloride of 180 carbon dioxide of 20, prerenal azotemia with BUN of 58, and elevated troponins but flat at 0.237 and 0.209 and 0.276. Urinalysis was negative for infection and Covid 19 PCR NEGATIVE. Chest x-ray normal findings negative for acute cardiopulmonary process. EKG revealing atrial fibrillation with a controlled ventricular rate of 82 bpm. Patient was admitted under our services with consultation to cardiology. Echocardiogram was completed revealing normal EF between 50 and 55% with mild to moderate aortic valve sclerosis. During hospitalization and RN reported large amounts of black tarry stool and patient had a significant 4 g drop in hemoglobin from 10.4 down to 6.3. Eliquis and aspirin held. Pt required 2 units PRBCs to obtain stabilization of hemoglobin. CT abdomen and pelvis completed revealing prominent circumferential thickening in the region of the distal esophagus, possible 2 cm mural based thickening along the medial wall of the lower ascending colon, sigmoid diverticulosis without acute diverticulitis, a few nonobstructive colliculi in the left kidney, circumferential bladder wall thickening, mild superior endplate deformity of L1, and trace pleural effusions. Patient seen and examined at bedside with family present. He has been passing gas, no bowel movements, no nausea. He is tolerating his clear liquid diet. No chest pain or shortness of breath. General: non toxic, no distress, appears at stated age Derm: warm, dry, heart appearing Head: atraumatic, normocephalic, symmetric Eyes: EOMI, no lid lag, anicteric sclera Mouth: no lip lesion, mucus membranes moist Cardiovascular: S1S2 reg, no murmur, positive posterior tibial pulse bilateral, Lungs: CTA bilateral, no rhonchi, no rales , no accessory muscle use Abdominal: soft, tender to palpation right lower quadrant, no guarding, no appreciable organomegaly him a midline laparotomy incision with dressing in place Ext: no gross muscle atrophy, no edema, no contractures Neuro: CN II-XI grossly intact, no focal neuro deficits Psych: Alert, oriented, appropriate affect 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 Likely resume in AM -Protonix switched to oral -EGD showing gastritis and esophagitis, colonoscopy showing a right colonic mass highly concerning for malignancy awaiting pathology -CT abdomen and pelvis with and without IV contrast revealed prominent circumferential thickening in the region of the distal esophagus, possible 2 cm mural based thickening along the medial wall of the lower ascending colon, sigmoid diverticulosis without acute diverticulitis, a few nonobstructive colliculi in the left kidney, and circumferential bladder wall thickening. Syncope on presentation, likely multifactorial secondary to acute blood loss resulting in hypovolemia with elevated troponins Elevated troponin secondary to non-thrombotic troponin leak, hypotension, and acute blood loss anemia -Cardiology consulted, recommending continued medical management with no further cardiac workup or testing at this time. -Echocardiogram was completed revealing normal EF between 50 and 55% with mild to moderate aortic valve sclerosis. -PT recs Atrial Fibrillation -Heart rate well controlled -Aspirin and Eliquis held due to acute blood loss anemia Uncontrolled lower back pain status post fall [address] report of endplate deformity of L1. Pain medications adjusted. Orthospine consulted and recommending continuation of conservative measures with pain management and plans to order LSO brace. if no improvement may discuss kyphoplasty once pt is medically stable. Fall precautions PT consult. Hypertension Monitor vital signs and continue daily medication regimen. Hyperlipidemia Continue daily medication regimen with atorvastatin 20 mg nightly Glaucoma Continue daily medication regimen with eyedrops. CODE STATUS: Full code DVT prophylaxis: SCDs Discussed with: Patient and RN Anticipated discharge date: Clinical course to determine Anticipated discharge place: Home versus back to [facility] for continued rehab Objective - Vital Signs Vital signs: Vital Signs Temp 98.5 F 12/28/20 20:54 Pulse 54 L 12/28/20 20:54 Resp 16 12/28/20 20:54 BP 131/71 12/28/20 20:54 Pulse Ox 99 12/28/20 20:54 Intake & Output 12/28/20 12/28/20 12/29/20 06:59 18:59 06:59 Output Total 500 Balance -500 Output: Urine 500 Uretheral (Choudhary) 500 Other: Voiding Method Indwelling Catheter Indwelling Catheter - Labs CBC & Chem 7: 12/28/20 06:56 12/28/20 09:41 Labs: Abnormal Lab Results - Last 24 Hours (Table) 12/28/20 12/28/20 12/28/20 Range/Units 06:56 06:56 09:41 RBC 2.96 L (4.30-5.90) m/uL Hgb 9.0 L (13.0-17.5) gm/dL Hct 27.4 L (39.0-53.0) % Neutrophils # 7.9 H (1.3-7.7) k/uL Lymphocytes # 0.6 L (1.0-4.8) k/uL Chloride 110 H 109 H (96-109) mmol/L Carbon Dioxide 21.1 L 21 L (21.6-31.8) mmol/L BUN 8.5 L 8 L (9.0-27.0) mg/dL BUN/Creatinine Ratio 8.28 L (12.00-20.00) Ratio Glucose 122 H 162 H (70-110) mg/dL Calcium 8.3 L (8.7-10.3) mg/dL Total Protein 5.2 L (6.3-8.2) g/dL Albumin 2.7 L (3.5-5.0) g/dL
[2020-12-28] MEDS: HYDROmorphone 0.5 MG/0.5 ML SYRINGE IVP PRN (22:39)
[2020-12-29] MEDS: DILTIAZEM ORAL 30 MG TAB PO SCH ×3 (00:58→21:17)
[2020-12-29] MEDS: TIMOLOL 0.5% OPHTH DROPS 5 ML BTL BOTH EYES SCH ×3 (00:58→21:23)
[2020-12-29] MEDS: KETOROLAC 15 MG/ML 1 ML VIAL IVP SCH ×2 (05:53→12:18)
[2020-12-29] MEDS: LIDOCAINE 5% PATCH TOPICAL SCH (07:54)
[2020-12-29] MEDS: NYSTATIN 100,000 UNIT/ML SUSP 500,000 UNIT/5 ML CUP PO SCH ×4 (07:54→21:23)
[2020-12-29] MEDS: HEPARIN SODIUM,PORCINE/PF 5,000 UNIT/0.5 ML SYRINGE SQ SCH ×2 (07:55→21:16)
[2020-12-29] MEDS: SENNOSIDES-DOCUSATE SODIUM 1 EACH TAB PO SCH ×2 (07:55→21:16)
[2020-12-29] MEDS: metroNIDAZOLE 500 MG TAB PO SCH ×2 (07:56→16:25)
[2020-12-29] MEDS: CHOLECALCIFEROL 25 MCG (1000 IU) TABLET PO SCH (07:56)
[2020-12-29] MEDS: PANTOPRAZOLE 40 MG TABLET PO SCH (07:56)
[2020-12-29] MEDS: ASCORBIC ACID 500 MG TAB PO SCH (07:56)
[2020-12-29] MEDS: ALVIMOPAN 12 MG CAPSULE PO SCH ×2 (07:58→21:16)
[2020-12-29] MEDS: MULTIVITAMINS, THERA 1 EACH TAB PO SCH (07:58)
[2020-12-29] MEDS: PILOCARPINE 1% OPHTH DROPS 15 ML BTL RIGHT EYE SCH ×2 (07:59→21:23)
[2020-12-29 09:43] LABS: Basophils % (A) 0 %; Eosinophils # (A) 0.2 k/uL (0-0.7); Eosinophils % (A) 3 %; HCT 30.3 % (39.0-53.0); HGB 9.5 gm/dL (13.0-17.5); Hypochromasia Marked; Lymphocytes # (A) 0.7 k/uL (1.0-4.8); Lymphocytes % (A) 9 %; MCH 29.6 pg (25.0-35.0); MCHC 31.2 g/dL (31.0-37.0); MCV 94.7 fL (80.0-100.0); Mean Platelet Volume 7.9; Monocytes # (A) 0.4 k/uL (0-1.0); Monocytes % (A) 6 %; Neutrophils # (A) 6.3 k/uL (1.3-7.7); Neutrophils % (A) 81 %; Platelet Count 295 k/uL (150-450); RDW 14.6 % (11.5-15.5); WBC 7.8 k/uL (3.8-10.6)
[2020-12-29] MEDS: ACETAMINOPHEN TAB 325 MG TAB PO PRN (09:51)
--- NOTE | 2020-12-29 11:33 | P.PN ---
<Blanquita Jacobo - Last Filed: 12/29/20 11:25> Subjective Progress Note Date: 12/29/20 CHIEF COMPLAINT: GI bleed HISTORY OF PRESENT ILLNESS: Patient is postop day #3 status post right colectomy for colon cancer. Patient is complaining of abdominal pain. But he is due for pain medication this morning. Denies any nausea or vomiting. He did have a loose bowel movements and is passing gas. Family is requesting no IV Dilaudid to be given it makes patient "loopy." Choudhary catheter was removed this morning. Patient was able to urinate. Afebrile. WBC is 7.8 and hgb 9.5 PHYSICAL EXAM: VITAL SIGNS: Reviewed. GENERAL: Well-developed in no acute distress. HEENT: No sclera icterus. Extraocular movements grossly intact. Moist buccal mucosa. Head is atraumatic, normocephalic. ABDOMEN: Soft. Nondistended. Incisional dressing clean dry and intact NEUROLOGIC: Lying in bed comfortably. Hard of hearing ASSESSMENT: 1. Colon cancer status post right colectomy 2. Acute GI bleed with acute blood loss anemia likely due to right colon mass 3. Leukocytosis resolved PLAN: -Advance diet to full liquids -Continue pain medication as needed -Continue antibiotics -Continue IV fluids -Pathology report pending -Encouraged patient to use incentive spirometer -Encouraged patient to increase activity level -GI prophylaxis Protonix and DVT prophylaxis subcu heparin Physician Certified Paralegal note has been reviewed by physician. Signing provider agrees with the documented findings, assessment, and plan of care. Objective - Vital Signs Vital signs: Vital Signs Temp 98 F 12/29/20 11:15 Pulse 88 12/29/20 11:15 Resp 18 12/29/20 11:15 BP 130/68 12/29/20 11:15 Pulse Ox 98 12/29/20 11:15 Intake & Output 12/28/20 12/29/20 12/29/20 18:59 06:59 18:59 Output Total 500 1 Balance -500 -1 Output: Urine 500 Uretheral (Choudhary) 500 Stool 1 Other: Voiding Method Indwelling Catheter Bedpan Urinal Diaper - Labs CBC & Chem 7: 12/29/20 08:40 12/28/20 09:41 Labs: Abnormal Lab Results - Last 24 Hours (Table) 12/29/20 Range/Units 08:40 RBC 3.20 L (4.30-5.90) m/uL Hgb 9.5 L (13.0-17.5) gm/dL Hct 30.3 L (39.0-53.0) % Lymphocytes # 0.7 L (1.0-4.8) k/uL <Devon Selby - Last Filed: 12/29/20 14:00> Subjective As above. Patient complaining of mild pain. Tolerating full liquids. He is having bowel movements. Continue increasing activity. Objective - Vital Signs Vital signs: Vital Signs Temp 98 F 12/29/20 11:15 Pulse 88 12/29/20 11:15 Resp 18 12/29/20 11:15 BP 130/68 12/29/20 11:15 Pulse Ox 98 12/29/20 11:15 Intake & Output 12/28/20 12/29/20 12/29/20 18:59 06:59 18:59 Output Total 500 1 Balance -500 -1 Output: Urine 500 Uretheral (Choudhary) 500 Stool 1 Other: Voiding Method Indwelling Catheter Bedpan Urinal Diaper - Labs CBC & Chem 7: 12/29/20 08:40 12/28/20 09:41 Labs: Abnormal Lab Results - Last 24 Hours (Table) 12/29/20 Range/Units 08:40 RBC 3.20 L (4.30-5.90) m/uL Hgb 9.5 L (13.0-17.5) gm/dL Hct 30.3 L (39.0-53.0) % Lymphocytes # 0.7 L (1.0-4.8) k/uL
[2020-12-29] MEDS: D5-0.45% NACL WITH KCL 20MEQ/L 1,000 ML IV SCH ×3 (12:19→21:26)
[2020-12-29] MEDS: LEVOFLOXACIN 500MG-D5W PMX 500 MG in DEXTROSE/WATER 1 100ML.BAG IVPB SCH (12:19)
[2020-12-29] MEDS: SODIUM FERRIC GLUCONAT-SUCROSE 125 MG in SODIUM CHLORIDE 0.9% 100 ML IVPB SCH (15:39)
[2020-12-29] MEDS: ACETAMINOPHEN TAB 500 MG TAB PO SCH ×2 (16:25→22:00)
[2020-12-29] MEDS: CYANOCOBALAMIN 500 MCG TAB PO SCH (16:25)
--- NOTE | 2020-12-29 18:10 | P.PN ---
Subjective Progress Note Date: 12/29/20 (Delayed charting seen at 1530) Principal diagnosis: syncope Patient isan 85 yo CM with a hx of glaucoma, [place], A fib with eliquis, and HTN who presented with multiple syncopal episodes. In the emergency department he underwent extensive evaluation was found to have anemia, elevated BUN, and elevated troponin 0.0-3. Urinalysis was negative, COVID-19 was negative. Chest x-ray showed no acute process. Patient was admitted for further evaluation of his syncope. EKG demonstrated A. fib rate controlled.Echocardiogram was completed revealing normal EF between 50 and 55% with mild to moderate aortic valve sclerosis. He then noted to have dark tarry stools by nursing. Surgery was consulted. He underwent CT abdomen and pelvis which showed a 2 cm mural based thickening along the lower ascending colon, sigmoid diverticulosis, nonobstructing left renal calculi and L1 endplate abnormality. He was seen by ortho spine who recommended conservative therapy with bracing as needed for pain. Cardio did not feel further work-up was indicated. He underwent an EGD and colonoscopy on 12/19 which showed a right colonic mass, antral gastritis, and esophagitis along with small hiatal hernia. On 12/26 the patient underwent a right colectomy with partial omentectomy. He has been progressing well since that time. Patient seen and examined at bedside with family present. There are very concerned that he had a possible apneic episode and states that his feet slight wright, however they are all sitting in the dark. Patient is a awakened from sleep. He denies any pain. Denies any nausea or vomiting. He reports that they had a bowel movement today. Family reports that he has not been eating much. Case discussed with nursing she reports to 2 second pauses on telemetry. General: non toxic, no distress, appears at stated age Derm: warm, dry, heart appearing Head: atraumatic, normocephalic, symmetric, hard of hearing, blind Eyes: EOMI, no lid lag, anicteric sclera Mouth: no lip lesion, mucus membranes moist Cardiovascular: S1S2 reg, no murmur, positive posterior tibial pulse bilateral, Lungs: Decreased breath sounds bilaterally bilateral, no rhonchi, no rales , no accessory muscle use Abdominal: soft, nontender to palpation all 4 quadrants, no guarding, no appreciable organomegaly him a midline laparotomy incision with dressing in place Ext: no gross muscle atrophy, no edema, no contractures Neuro: CN II-XI grossly intact, no focal neuro deficits Psych: Alert, oriented, appropriate affect 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: Status post right colectomy Acute blood loss anemia due to GI bleed with gross melena, Hgb stable Gastritis, Esophagitis Right colon mass, awaiting pathology from colectomy -Received transfusion of 2 units PRBCs during this admission -Eliquis and Aspirin held. Resume once okayed with general surgery -Protonix switched to oral - advance diet per surgery on full liquids currently. Syncope on presentation, likely multifactorial secondary to acute blood loss resulting in hypovolemia with elevated troponins Type II NSTEMI due to anemia -cardio recs apprecaited -Echocardiogram was completed revealing normal EF between 50 and 55% with mild to moderate aortic valve sclerosis. -PT recs 2 Second pause on Tele - Stop Levaquin and change to rocephin, decreased cardizem - follow on tele. Atrial Fibrillation -Heart rate well controlled -Aspirin and Eliquis held due to acute blood loss anemia L1 Vertebral Compression Fracture, Low back pain - add oral pain meds - Outpatient follow-up with Dr. Barker - PT/OT Hypertension -Monitor vital signs and continue daily medication regimen. Hyperlipidemia -Continue daily medication regimen with atorvastatin 20 mg nightly Glaucoma -Continue daily medication regimen with eyedrops. CODE STATUS: Full code DVT prophylaxis: SCDs Discussed with: Patient and RN Anticipated discharge date: Clinical course to determine Anticipated discharge place: Home versus back to [facility] for continued rehab Objective - Vital Signs Vital signs: Vital Signs Temp 98 F 12/29/20 11:15 Pulse 88 12/29/20 11:15 Resp 18 12/29/20 11:15 BP 130/68 12/29/20 11:15 Pulse Ox 98 12/29/20 11:15 Intake & Output 12/28/20 12/29/20 12/29/20 18:59 06:59 18:59 Output Total 500 1 Balance -500 -1 Output: Urine 500 Uretheral (Choudhary) 500 Stool 1 Other: Voiding Method Indwelling Catheter Bedpan Urinal Diaper - Labs CBC & Chem 7: 12/29/20 08:40 12/28/20 09:41 Labs: Abnormal Lab Results - Last 24 Hours (Table) 12/29/20 Range/Units 08:40 RBC 3.20 L (4.30-5.90) m/uL Hgb 9.5 L (13.0-17.5) gm/dL Hct 30.3 L (39.0-53.0) % Lymphocytes # 0.7 L (1.0-4.8) k/uL
--- NOTE | 2020-12-29 19:59 | P.PN ---
Subjective Progress Note Date: 12/29/20 Principal diagnosis: Adenocarcinoma, likely colon Patient resting in bed, He is very [place] and legally blind. Son, Daughter and daughter in law and . They have multiple questions and very concerned about the rehab process, asking about the possibility of IPR. I explained he is likely not a candidate as he would need to be able to tolerate and participate in multiple hours daily of physical therapy. He is tolerating food and increased po intake of protein intake. Hernandez catheter has been removed, he has urgency, and per was up all night with the feeling of urination. He is also extremely fatigued and short of breath with activity therefore will supplement with paren nicki iron. Objective - Vital Signs Vital signs: Vital Signs Temp 98 F 12/29/20 11:15 Pulse 88 12/29/20 11:15 Resp 18 12/29/20 11:15 BP 130/68 12/29/20 11:15 Pulse Ox 98 12/29/20 11:15 Intake & Output 12/28/20 12/29/20 12/29/20 18:59 06:59 18:59 Output Total 500 1 Balance -500 -1 Output: Urine 500 Uretheral (Hernandez) 500 Stool 1 Other: Voiding Method Indwelling Catheter Bedpan Urinal Diaper - Exam Fatigued. lethargic Awakens to stimulates Very [place] NAD Lungs: diminished, no increased effort Heart: Reg irr Abdomen: Soft dist, In pain, evidence of surgical intervention Ext: No edema - Labs CBC & Chem 7: 12/29/20 08:40 12/28/20 09:41 Labs: Abnormal Lab Results - Last 24 Hours (Table) 12/29/20 Range/Units 08:40 RBC 3.20 L (4.30-5.90) m/uL Hgb 9.5 L (13.0-17.5) gm/dL Hct 30.3 L (39.0-53.0) % Lymphocytes # 0.7 L (1.0-4.8) k/uL Assessment and Plan (1) Adenocarcinoma Narrative/Plan: Moderately differentiated colon, CT revealed some distal esophageal thickening. there appears to be no further evidence of metastatic disease Current Visit: Yes Status: Acute Priority: High Code(s): C80.1 - MALIGNANT (PRIMARY) NEOPLASM, UNSPECIFIED SNOMED Code(s): 842885102 (2) Dehydration Current Visit: Yes Status: Acute Code(s): E86.0 - DEHYDRATION SNOMED Code(s): 85902172 (3) Normocytic normochromic anemia Current Visit: Yes Status: Acute Priority: Medium Code(s): D64.9 - ANEMIA, UNSPECIFIED SNOMED Code(s): 14936849 (4) Thrush, oral Current Visit: Yes Status: Acute Priority: High Code(s): B37.0 - CANDIDAL STOMATITIS SNOMED Code(s): 63503066 Plan: Status Post Right Colectomy with anastamosis. Pain Incentive spirometer at bedside. Spoke with Surgery, mesentary LN removed Omental Sampling was sent per note. Plan at this time is to await pathology result and send tissue for further testing NGS. Thickening in Distal Esophagus, EGD was performed and negative for malignancy, revealing esophagitis and esonophils. Discussed the current plan on waiting for all information for further recommendations. In the interim will control pain, encourage Incentive spirometer and increase activity. Add Parental Iron to assist in symptomatic anemia COntinue to encourage increasing activity. patients family with many questions, answered as best as possible Urinary frequency - status post hernandez removal. Check urinalysis if persists.
[2020-12-29] MEDS: DONEPEZIL 10 MG TAB PO SCH (21:16)
[2020-12-29] MEDS: ATORVASTATIN 20 MG TAB PO SCH (21:16)
[2020-12-29] MEDS: LATANOPROST 0.005% OPHTH DROPS 2.5 ML BTL BOTH EYES SCH (21:23)
[2020-12-30] MEDS: metroNIDAZOLE 500 MG TAB PO SCH ×3 (00:12→16:56)
[2020-12-30] MEDS: ACETAMINOPHEN TAB 500 MG TAB PO SCH ×2 (02:56→03:15)
[2020-12-30] MEDS: D5-0.45% NACL WITH KCL 20MEQ/L 1,000 ML IV SCH (05:43)
[2020-12-30] MEDS: HYDROcodone/APAP 5-325MG 1 EACH TAB PO PRN (06:30)
[2020-12-30 06:38] LABS: Basophils % (A) 0 %; Eosinophils # (A) 0.3 k/uL (0-0.7); Eosinophils % (A) 6 %; HCT 29.1 % (39.0-53.0); HGB 9.2 gm/dL (13.0-17.5); Hypochromasia Moderate; Lymphocytes # (A) 0.6 k/uL (1.0-4.8); Lymphocytes % (A) 10 %; MCH 29.8 pg (25.0-35.0); MCHC 31.6 g/dL (31.0-37.0); MCV 94.1 fL (80.0-100.0); Mean Platelet Volume 7.6; Monocytes # (A) 0.4 k/uL (0-1.0); Monocytes % (A) 7 %; Neutrophils # (A) 4.1 k/uL (1.3-7.7); Neutrophils % (A) 75 %; Platelet Count 301 k/uL (150-450); RBC 3.09 m/uL (4.30-5.90); RDW 14.9 % (11.5-15.5); WBC 5.5 k/uL (3.8-10.6)
[2020-12-30] MEDS: DILTIAZEM ORAL 30 MG TAB PO SCH ×2 (08:42→20:06)
[2020-12-30] MEDS: MULTIVITAMINS, THERA 1 EACH TAB PO SCH (08:42)
[2020-12-30] MEDS: PANTOPRAZOLE 40 MG TABLET PO SCH (08:43)
[2020-12-30] MEDS: SENNOSIDES-DOCUSATE SODIUM 1 EACH TAB PO SCH ×2 (08:43→20:06)
[2020-12-30] MEDS: CHOLECALCIFEROL 25 MCG (1000 IU) TABLET PO SCH (08:43)
[2020-12-30] MEDS: CYANOCOBALAMIN 500 MCG TAB PO SCH (08:43)
[2020-12-30] MEDS: ASCORBIC ACID 500 MG TAB PO SCH (08:43)
[2020-12-30] MEDS: PILOCARPINE 1% OPHTH DROPS 15 ML BTL RIGHT EYE SCH ×2 (08:44→20:08)
[2020-12-30] MEDS: TIMOLOL 0.5% OPHTH DROPS 5 ML BTL BOTH EYES SCH ×2 (08:44→20:08)
[2020-12-30] MEDS: NYSTATIN 100,000 UNIT/ML SUSP 500,000 UNIT/5 ML CUP PO SCH ×4 (08:54→20:09)
[2020-12-30] MEDS: SODIUM FERRIC GLUCONAT-SUCROSE 125 MG in SODIUM CHLORIDE 0.9% 100 ML IVPB SCH (09:02)
[2020-12-30] MEDS: HEPARIN SODIUM,PORCINE/PF 5,000 UNIT/0.5 ML SYRINGE SQ SCH ×2 (09:02→20:02)
[2020-12-30] MEDS: LIDOCAINE 5% PATCH TOPICAL SCH (09:05)
[2020-12-30 09:42] LABS: African American GFR (CKD) 79.2 (60.0-200.0); Calcium 8.2 mg/dL (8.7-10.3); Non-African American GFR(CKD) 68.3 (60.0-200.0); Potassium 4.1 mmol/L (3.5-5.5)
[2020-12-30] MEDS: ACETAMINOPHEN TAB 500 MG TAB PO PRN ×2 (11:21→22:08)
--- NOTE | 2020-12-30 14:56 | P.PN ---
<Blanquita Jacobo - Last Filed: 12/30/20 14:56> Subjective Progress Note Date: 12/30/20 CHIEF COMPLAINT: GI bleed HISTORY OF PRESENT ILLNESS: Patient is postop day #4 status post right colectomy for colon cancer. Patient is lying in bed comfortably. He has reported small bowel movements and flatus. No blood noted in stools. Denies any nausea or vomiting. The Joaquin is helping with pain. He was able to tolerate it. Patient family working on discharge planning with social services coordinator. Patient did eat more for breakfast this morning. He did ambulate yesterday with physical therapy in the hallway. Afebrile. WBC is 5.5 hemoglobin is 9.2 PHYSICAL EXAM: VITAL SIGNS: Reviewed. GENERAL: Well-developed in no acute distress. HEENT: No sclera icterus. Extraocular movements grossly intact. Moist buccal mucosa. Head is atraumatic, normocephalic. ABDOMEN: Soft. Nondistended. Incisional dressing clean dry and intact NEUROLOGIC: Lying in bed comfortably. Hard of hearing ASSESSMENT: 1. Colon cancer status post right colectomy 2. Acute GI bleed with acute blood loss anemia likely due to right colon mass 3. Leukocytosis resolved PLAN: -Okay to resume Eliquis from surgical standpoint -Advance diet to low fiber for dinner -Continue pain medication as needed -Continue antibiotics -Pathology report pending -Encouraged patient to use incentive spirometer -Encouraged patient to increase activity level -GI prophylaxis Protonix and DVT prophylaxis subcu heparin Physician Electrical Products Sales Engineer note has been reviewed by physician. Signing provider agrees with the documented findings, assessment, and plan of care. Objective - Vital Signs Vital signs: Vital Signs Temp 98.9 F 12/30/20 04:30 Pulse 55 L 12/30/20 04:30 Resp 18 12/30/20 04:30 BP 132/72 12/30/20 04:30 Pulse Ox 96 12/30/20 04:30 Intake & Output 12/29/20 12/30/20 12/30/20 18:59 06:59 18:59 Intake Total 1250 Balance 1250 Intake: Intake, IV Titration 1250 Amount D5-0.45% NaCl with KCl 1250 20Meq/l 1,000 ml @ 125 mls/hr IV .Q8H [facility] Rx#: [id number] Other: Voiding Method Bedside Commode Bedside Commode Urinal Urinal Diaper Diaper # Voids 11 # Bowel Movements 4 - Labs CBC & Chem 7: 12/30/20 06:04 12/30/20 06:04 Labs: Abnormal Lab Results - Last 24 Hours (Table) 12/30/20 12/30/20 Range/Units 06:04 06:04 RBC 3.09 L (4.30-5.90) m/uL Hgb 9.2 L (13.0-17.5) gm/dL Hct 29.1 L (39.0-53.0) % Lymphocytes # 0.6 L (1.0-4.8) k/uL Carbon Dioxide 20.0 L (21.6-31.8) mmol/L BUN 4.0 L (9.0-27.0) mg/dL BUN/Creatinine Ratio 4.00 L (12.00-20.00) Ratio Glucose 119 H (70-110) mg/dL Calcium 8.2 L (8.7-10.3) mg/dL <Devon Selby - Last Filed: 12/30/20 15:03> Subjective As above. May resume blood thinners. Agree with advancing diet. Increase activity. We'll follow. Objective - Vital Signs Vital signs: Vital Signs Temp 98.7 F 12/30/20 12:39 Pulse 53 L 12/30/20 12:39 Resp 17 12/30/20 12:39 BP 130/66 12/30/20 12:39 Pulse Ox 96 12/30/20 12:39 Intake & Output 12/29/20 12/30/20 12/30/20 18:59 06:59 18:59 Intake Total 1250 Balance 1250 Intake: Intake, IV Titration 1250 Amount D5-0.45% NaCl with KCl 1250 20Meq/l 1,000 ml @ 125 mls/hr IV .Q8H [facility] Rx#: [id number] Other: Voiding Method Bedside Commode Bedside Commode Urinal Urinal Diaper Diaper # Voids 11 # Bowel Movements 4 - Labs CBC & Chem 7: 12/30/20 06:04 12/30/20 06:04 Labs: Abnormal Lab Results - Last 24 Hours (Table) 12/30/20 12/30/20 Range/Units 06:04 06:04 RBC 3.09 L (4.30-5.90) m/uL Hgb 9.2 L (13.0-17.5) gm/dL Hct 29.1 L (39.0-53.0) % Lymphocytes # 0.6 L (1.0-4.8) k/uL Carbon Dioxide 20.0 L (21.6-31.8) mmol/L BUN 4.0 L (9.0-27.0) mg/dL BUN/Creatinine Ratio 4.00 L (12.00-20.00) Ratio Glucose 119 H (70-110) mg/dL Calcium 8.2 L (8.7-10.3) mg/dL
[2020-12-30] MEDS: traMADol 50 MG TAB PO PRN (16:56)
--- NOTE | 2020-12-30 18:59 | P.PN ---
Subjective Progress Note Date: 12/30/20 Principal diagnosis: Adenocarcinoma, likely colon Pathology is still pending at this time, he is still very weak and complains of pain, doies not seem to want to get out of bed despite education on increasing activity Objective - Vital Signs Vital signs: Vital Signs Temp 98.7 F 12/30/20 12:39 Pulse 53 L 12/30/20 12:39 Resp 17 12/30/20 12:39 BP 130/66 12/30/20 12:39 Pulse Ox 96 12/30/20 12:39 Intake & Output 12/29/20 12/30/20 12/30/20 18:59 06:59 18:59 Intake Total 1250 Balance 1250 Intake: Intake, IV Titration 1250 Amount D5-0.45% NaCl with KCl 1250 20Meq/l 1,000 ml @ 125 mls/hr IV .Q8H [facility] Rx#: [id number] Other: Voiding Method Bedside Commode Bedside Commode Urinal Urinal Diaper Diaper # Voids 11 # Bowel Movements 4 - Exam Fatigued. lethargic Awakens to stimulates Very [place] NAD Lungs: diminished, no increased effort Heart: Reg irr Abdomen: Soft dist, In pain, evidence of surgical intervention Ext: No edema - Labs CBC & Chem 7: 12/30/20 06:04 12/30/20 06:04 Labs: Abnormal Lab Results - Last 24 Hours (Table) 12/30/20 12/30/20 Range/Units 06:04 06:04 RBC 3.09 L (4.30-5.90) m/uL Hgb 9.2 L (13.0-17.5) gm/dL Hct 29.1 L (39.0-53.0) % Lymphocytes # 0.6 L (1.0-4.8) k/uL Carbon Dioxide 20.0 L (21.6-31.8) mmol/L BUN 4.0 L (9.0-27.0) mg/dL BUN/Creatinine Ratio 4.00 L (12.00-20.00) Ratio Glucose 119 H (70-110) mg/dL Calcium 8.2 L (8.7-10.3) mg/dL Assessment and Plan (1) Adenocarcinoma Narrative/Plan: Moderately differentiated colon, CT revealed some distal esophageal thickening. there appears to be no further evidence of metastatic disease Current Visit: Yes Status: Acute Priority: High Code(s): C80.1 - MALIGNANT (PRIMARY) NEOPLASM, UNSPECIFIED SNOMED Code(s): 300596209 (2) Dehydration Current Visit: Yes Status: Acute Code(s): E86.0 - DEHYDRATION SNOMED Code(s): 52288777 (3) Normocytic normochromic anemia Current Visit: Yes Status: Acute Priority: Medium Code(s): D64.9 - ANEMIA, UNSPECIFIED SNOMED Code(s): 64905990 (4) Thrush, oral Current Visit: Yes Status: Acute Priority: High Code(s): B37.0 - CANDIDAL STOMATITIS SNOMED Code(s): 70105134 Plan: Status Post Right Colectomy with anastamosis. Pain Incentive spirometer at bedside. Spoke with Surgery, mesentary LN removed Omental Sampling was sent per note. Plan at this time is to await pathology result and send tissue for further testing NGS. Thickening in Distal Esophagus, EGD was performed and negative for malignancy, revealing esophagitis and esonophils. Discussed the current plan on waiting for all information for further recommendations. In the interim will control pain, encourage Incentive spirometer and increase activity. Add Parental Iron to assist in symptomatic anemia COntinue to encourage increasing activity. patients family with many questions, answered as best as possible Re-enforced increased activity to prevent secondary infection iand improve recovery Physician Attest: I have completed the full history and physical and agree with above dictation, dictated as a ascribe
[2020-12-30] MEDS: DONEPEZIL 10 MG TAB PO SCH (20:06)
[2020-12-30] MEDS: ATORVASTATIN 20 MG TAB PO SCH (20:06)
[2020-12-30] MEDS: LATANOPROST 0.005% OPHTH DROPS 2.5 ML BTL BOTH EYES SCH (20:08)
--- NOTE | 2020-12-30 21:12 | P.PN ---
Subjective Progress Note Date: 12/30/20 (delayed charting seen at 1030) Principal diagnosis: syncope Patient isan 85 yo CM with a hx of glaucoma, [place], A fib with eliquis, and HTN who presented with multiple syncopal episodes. In the emergency department he underwent extensive evaluation was found to have anemia, elevated BUN, and elevated troponin 0.0-3. Urinalysis was negative, COVID-19 was negative. Chest x-ray showed no acute process. Patient was admitted for further evaluation of his syncope. EKG demonstrated A. fib rate controlled.Echocardiogram was completed revealing normal EF between 50 and 55% with mild to moderate aortic valve sclerosis. He then noted to have dark tarry stools by nursing. Surgery was consulted. He underwent CT abdomen and pelvis which showed a 2 cm mural based thickening along the lower ascending colon, sigmoid diverticulosis, nonobstructing left renal calculi and L1 endplate abnormality. He was seen by ortho spine who recommended conservative therapy with bracing as needed for pain. Cardio did not feel further work-up was indicated. He underwent an EGD and colonoscopy on 12/19 which showed a right colonic mass, antral gastritis, and esophagitis along with small hiatal hernia. On 12/26 the patient underwent a right colectomy with partial omentectomy. He has been progressing well since that time. Patient seen and examined at bedside with family present. Family continues to be concerned with discharge as patient is only eating very small amounts, I encourage them to bring in some of his favorite food, and stated that I do not anticipate him to eat much right now and that he likely will not return to baseline after this hospital stay. Patient c/o back pain, no abd pain or nausea. Had 3 bowel movements last night. Watched patient ambulate with physical therapy General: non toxic, no distress, appears at stated age Derm: warm, dry, heart appearing Head: atraumatic, normocephalic, symmetric, hard of hearing, blind Eyes: EOMI, no lid lag, anicteric sclera Mouth: no lip lesion, mucus membranes moist Cardiovascular: S1S2 reg, no murmur, positive posterior tibial pulse bilateral, Lungs: Decreased breath sounds bilaterally bilateral, no rhonchi, no rales , no accessory muscle use Abdominal: soft, nontender to palpation all 4 quadrants, no guarding, no appreciable organomegaly him a midline laparotomy incision with dressing in place Ext: no gross muscle atrophy, no edema, no contractures Neuro: CN II-XI grossly intact, no focal neuro deficits Psych: Alert, oriented, appropriate affect 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 Syncope on presentation, likely multifactorial secondary to acute blood loss resulting in hypovolemia with elevated troponins Type II NSTEMI due to anemia -cardio recs apprecaited -Echocardiogram was completed revealing normal EF between 50 and 55% with mild to moderate aortic valve sclerosis. -PT recs 2 Second pause on Tele - Decreased cardizem - follow on tele. Atrial Fibrillation -Heart rate well controlled -ELiquis resumed per surgery L1 Vertebral Compression Fracture, Low back pain - add oral pain meds - Outpatient follow-up with Dr. Barker - PT/OT Hypertension -Monitor vital signs and continue daily medication regimen. Hyperlipidemia -Continue daily medication regimen with atorvastatin 20 mg nightly Glaucoma -Continue daily medication regimen with eyedrops. CODE STATUS: Full code DVT prophylaxis: SCDs Discussed with: Patient and RN, family Anticipated discharge date: Clinical course to determine Anticipated discharge place: Home versus SNF Objective - Vital Signs Vital signs: Vital Signs Temp 97.6 F 12/30/20 20:00 Pulse 59 L 12/30/20 20:00 Resp 20 12/30/20 20:00 BP 118/65 12/30/20 20:00 Pulse Ox 95 12/30/20 20:00 Intake & Output 12/30/20 12/30/20 12/31/20 06:59 18:59 06:59 Intake Total 1250 100 Balance 1250 100 Intake: Intake, IV Titration 1250 Amount D5-0.45% NaCl with KCl 1250 20Meq/l 1,000 ml @ 125 mls/hr IV .Q8H HILDA Rx#: [id number] Oral 100 Other: Voiding Method Bedside Commode Bedside Commode Urinal Urinal Diaper Diaper # Voids 11 1 # Bowel Movements 4 - Labs CBC & Chem 7: 12/30/20 06:04 12/30/20 06:04 Labs: Abnormal Lab Results - Last 24 Hours (Table) 12/30/20 12/30/20 Range/Units 06:04 06:04 RBC 3.09 L (4.30-5.90) m/uL Hgb 9.2 L (13.0-17.5) gm/dL Hct 29.1 L (39.0-53.0) % Lymphocytes # 0.6 L (1.0-4.8) k/uL Carbon Dioxide 20.0 L (21.6-31.8) mmol/L BUN 4.0 L (9.0-27.0) mg/dL BUN/Creatinine Ratio 4.00 L (12.00-20.00) Ratio Glucose 119 H (70-110) mg/dL Calcium 8.2 L (8.7-10.3) mg/dL
[2020-12-30] MEDS: APIXABAN 2.5 MG TABLET PO SCH (21:34)
[2020-12-31] MEDS: metroNIDAZOLE 500 MG TAB PO SCH ×3 (00:02→15:14)
[2020-12-31] MEDS: SENNOSIDES-DOCUSATE SODIUM 1 EACH TAB PO SCH ×2 (08:52→20:55)
[2020-12-31] MEDS: CYANOCOBALAMIN 500 MCG TAB PO SCH (08:52)
[2020-12-31] MEDS: APIXABAN 2.5 MG TABLET PO SCH ×2 (08:52→20:53)
[2020-12-31] MEDS: NYSTATIN 100,000 UNIT/ML SUSP 500,000 UNIT/5 ML CUP PO SCH ×4 (08:52→20:55)
[2020-12-31] MEDS: CHOLECALCIFEROL 25 MCG (1000 IU) TABLET PO SCH (08:52)
[2020-12-31] MEDS: MULTIVITAMINS, THERA 1 EACH TAB PO SCH (08:52)
[2020-12-31] MEDS: DILTIAZEM ORAL 30 MG TAB PO SCH ×2 (08:53→21:56)
[2020-12-31] MEDS: SODIUM FERRIC GLUCONAT-SUCROSE 125 MG in SODIUM CHLORIDE 0.9% 100 ML IVPB SCH (08:53)
[2020-12-31] MEDS: ASCORBIC ACID 500 MG TAB PO SCH (08:54)
[2020-12-31] MEDS: PANTOPRAZOLE 40 MG TABLET PO SCH (08:54)
[2020-12-31] MEDS: LIDOCAINE 5% PATCH TOPICAL SCH (08:54)
[2020-12-31] MEDS: PILOCARPINE 1% OPHTH DROPS 15 ML BTL RIGHT EYE SCH ×2 (08:55→20:55)
[2020-12-31] MEDS: TIMOLOL 0.5% OPHTH DROPS 5 ML BTL BOTH EYES SCH ×2 (09:00→20:54)
--- NOTE | 2020-12-31 09:42 | P.PN ---
Subjective Progress Note Date: 12/31/20 Principal diagnosis: Colon mass Patient doing well today. Says his pain is improved. Tolerating low fiber diet. Energy level is poor. Objective - Vital Signs Vital signs: Vital Signs Temp 97.6 F 12/30/20 20:00 Pulse 59 L 12/30/20 20:00 Resp 20 12/30/20 20:00 BP 118/65 12/30/20 20:00 Pulse Ox 95 12/30/20 20:00 Intake & Output 12/30/20 12/31/20 12/31/20 18:59 06:59 18:59 Intake Total 340 Balance 340 Intake: Oral 340 Other: Voiding Method Bedside Commode Bedside Commode Urinal Urinal Diaper Diaper # Voids 1 2 # Bowel Movements 1 - Exam Abdomen: Soft, nondistended, mild tenderness, incision clean and dry - Labs CBC & Chem 7: 12/30/20 06:04 12/30/20 06:04 Labs: Abnormal Lab Results - Last 24 Hours (Table) 12/30/20 Range/Units 06:04 Carbon Dioxide 20.0 L (21.6-31.8) mmol/L BUN 4.0 L (9.0-27.0) mg/dL BUN/Creatinine Ratio 4.00 L (12.00-20.00) Ratio Glucose 119 H (70-110) mg/dL Calcium 8.2 L (8.7-10.3) mg/dL Assessment and Plan (1) Colon cancer, ascending Narrative/Plan: Patient gradually improving. Continue low fiber diet. Continue physical therapy. Discharge planning in place. Current Visit: Yes Status: Acute Code(s): C18.2 - MALIGNANT NEOPLASM OF ASCENDING COLON SNOMED Code(s): 897889331
[2020-12-31] MEDS: HYDROcodone/APAP 5-325MG 1 EACH TAB PO PRN ×2 (13:08→22:09)
[2020-12-31] MEDS: traMADol 50 MG TAB PO PRN (13:16)
[2020-12-31] MEDS: ACETAMINOPHEN TAB 500 MG TAB PO PRN ×2 (15:13→20:53)
--- NOTE | 2020-12-31 17:04 | P.PN ---
Subjective Progress Note Date: 12/31/20 Principal diagnosis: syncope Patient ischet 85 yo CM with a hx of glaucoma, [place], A fib with eliquis, and HTN who presented with multiple syncopal episodes. In the emergency department he underwent extensive evaluation was found to have anemia, elevated BUN, and elevated troponin 0.0-3. Urinalysis was negative, COVID-19 was negative. Chest x-ray showed no acute process. Patient was admitted for further evaluation of his syncope. EKG demonstrated A. fib rate controlled.Echocardiogram was completed revealing normal EF between 50 and 55% with mild to moderate aortic valve sclerosis. He then noted to have dark tarry stools by nursing. Surgery was consulted. He underwent CT abdomen and pelvis which showed a 2 cm mural based thickening along the lower ascending colon, sigmoid diverticulosis, nonobstructing left renal calculi and L1 endplate abnormality. He was seen by ortho spine who recommended conservative therapy with bracing as needed for pain. Cardio did not feel further work-up was indicated. He underwent an EGD and colonoscopy on 12/19 which showed a right colonic mass, antral gastritis, and esophagitis along with small hiatal hernia. On 12/26 the patient underwent a right colectomy with partial omentectomy. He has been progressing well since that time. Patient seen and examined at bedside with family present. C/O feeling tired and having abd pain after eating. No chest pain, no shortness of breath. reenforced with General: non toxic, no distress, appears at stated age Derm: warm, dry, heart appearing Head: atraumatic, normocephalic, symmetric, hard of hearing, blind Eyes: EOMI, no lid lag, anicteric sclera Mouth: no lip lesion, mucus membranes moist Cardiovascular: S1S2 reg, no murmur, positive posterior tibial pulse bilateral, Lungs: Decreased breath sounds bilaterally bilateral, no rhonchi, no rales , no accessory muscle use Abdominal: soft, nontender to palpation all 4 quadrants, no guarding, no appreciable organomegaly him a midline laparotomy incision with dressing in place Ext: no gross muscle atrophy, no edema, no contractures Neuro: CN II-XI grossly intact, no focal neuro deficits Psych: Alert, oriented, appropriate affect 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 -PT recs 2 Second pause on Tele - Cardizem - follow on tele. Atrial Fibrillation -Heart rate well controlled -Eliquis resumed per surgery L1 Vertebral Compression Fracture, Low back pain - pain medications - Outpatient follow-up with Dr. Barker - PT/OT Hypertension -Monitor vital signs and continue daily medication regimen. Hyperlipidemia -Continue daily medication regimen with atorvastatin 20 mg nightly Glaucoma -Continue daily medication regimen with eyedrops. present at bedside. She states they would like to take him home now instead of to the prison facility. We discussed that he is likely nearing hospital discharge as he is no longer requiring acute care. She still wants in the hospital for longer and feels he is too weak to go home we discussed that the hospital gotten appropriate setting for rehab that he will either need to go home or to prison facility. Anticipate discharge on Saturday or Saturday of next week. CODE STATUS: Full code DVT prophylaxis: SCDs Discussed with: Patient and RN, family Anticipated discharge date: Clinical course to determine Anticipated discharge place: Home versus SNF Objective - Vital Signs Vital signs: Vital Signs Temp 98.3 F 12/31/20 13:19 Pulse 57 L 12/31/20 13:19 Resp 18 12/31/20 13:19 BP 149/77 12/31/20 13:19 Pulse Ox 95 12/31/20 13:19 Intake & Output 12/30/20 12/31/20 12/31/20 18:59 06:59 18:59 Intake Total 340 Output Total 1 Balance 340 -1 Intake: Oral 340 Output: Stool 1 Other: Voiding Method Bedside Commode Bedside Commode Bedside Commode Urinal Urinal Urinal Diaper Diaper Diaper # Voids 1 2 8 # Bowel Movements 1 6 - Labs CBC & Chem 7: 12/30/20 06:04 12/30/20 06:04
[2020-12-31] MEDS: ATORVASTATIN 20 MG TAB PO SCH (20:53)
[2020-12-31] MEDS: DONEPEZIL 10 MG TAB PO SCH (20:53)
[2020-12-31] MEDS: LATANOPROST 0.005% OPHTH DROPS 2.5 ML BTL BOTH EYES SCH (20:54)
[2021-01-01] MEDS: metroNIDAZOLE 500 MG TAB PO SCH ×3 (00:32→16:38)
[2021-01-01] MEDS: HYDROcodone/APAP 5-325MG 1 EACH TAB PO PRN (03:19)
[2021-01-01] MEDS: traMADol 50 MG TAB PO PRN (05:37)
[2021-01-01] MEDS: PANTOPRAZOLE 40 MG TABLET PO SCH (09:52)
[2021-01-01] MEDS: ASCORBIC ACID 500 MG TAB PO SCH (09:52)
[2021-01-01] MEDS: CHOLECALCIFEROL 25 MCG (1000 IU) TABLET PO SCH (09:52)
[2021-01-01] MEDS: APIXABAN 2.5 MG TABLET PO SCH ×2 (09:52→21:01)
[2021-01-01] MEDS: NYSTATIN 100,000 UNIT/ML SUSP 500,000 UNIT/5 ML CUP PO SCH ×4 (09:52→21:03)
[2021-01-01] MEDS: MULTIVITAMINS, THERA 1 EACH TAB PO SCH (09:52)
[2021-01-01] MEDS: SENNOSIDES-DOCUSATE SODIUM 1 EACH TAB PO SCH ×2 (09:52→21:01)
[2021-01-01] MEDS: CYANOCOBALAMIN 500 MCG TAB PO SCH (09:52)
--- NOTE | 2021-01-01 09:52 | P.PN ---
Subjective Progress Note Date: 01/01/21 Principal diagnosis: Colon mass Patient complained of some increased pain this morning. Seems comfortable now. He is passing stools. Tolerating diet although very small amounts. Had some nausea with dry heaves this morning. He is afebrile. No labs from today. Objective - Vital Signs Vital signs: Vital Signs Temp 98.3 F 01/01/21 05:10 Pulse 68 01/01/21 05:10 Resp 20 01/01/21 05:10 BP 168/62 01/01/21 05:10 Pulse Ox 97 01/01/21 05:10 Intake & Output 12/31/20 01/01/21 01/01/21 19:59 06:59 18:59 Intake Total Output Total Balance Intake: Oral Output: Stool Other: Voiding Method # Voids # Bowel Movements - Exam Abdomen: Soft, nondistended, mild incisional tenderness, incision clean and dry - Labs CBC & Chem 7: 12/30/20 06:04 12/30/20 06:04 Assessment and Plan (1) Colon cancer, ascending Narrative/Plan: Patient with episodes of nausea and dry heaves. Complaining of discomfort however exam very unimpressive. Appetite remains poor. Agree with plans for abdominal x-rays. Increase activity. Family considering palliative care or even hospice. Current Visit: Yes Status: Acute Code(s): C18.2 - MALIGNANT NEOPLASM OF ASCENDING COLON SNOMED Code(s): 776740135
[2021-01-01] MEDS: LIDOCAINE 5% PATCH TOPICAL SCH (09:53)
[2021-01-01] MEDS: DILTIAZEM ORAL 30 MG TAB PO SCH ×2 (09:53→21:01)
[2021-01-01] MEDS: ACETAMINOPHEN TAB 500 MG TAB PO PRN (09:54)
[2021-01-01] MEDS: TIMOLOL 0.5% OPHTH DROPS 5 ML BTL BOTH EYES SCH ×2 (10:26→21:03)
[2021-01-01] MEDS: PILOCARPINE 1% OPHTH DROPS 15 ML BTL RIGHT EYE SCH ×2 (10:27→21:02)
[2021-01-01 11:00] LABS: African American GFR (CKD) 85.8 (60.0-200.0); Albumin 3.1 g/dL (3.8-4.9); Albumin/Globulin Ratio 1.54 (1.60-3.17); Anion Gap 10.8 mmol/L (4.00-12.00); BUN/Creat Ratio 4.96 Ratio (12.00-20.00); Blood Urea Nitrogen 4.6 mg/dL (9.0-27.0); Calcium 8.7 mg/dL (8.7-10.3); Carbon Dioxide 21.5 mmol/L (21.6-31.8); Magnesium 1.6 mg/dL (1.5-2.4); Potassium 3.8 mmol/L (3.5-5.5); Total Bilirubin 0.3 mg/dL (0.30-1.20); Total Protein 5.1 g/dL (6.2-8.2)
--- NOTE | 2021-01-01 14:06 | XR ---
EXAMINATION TYPE: XR KUB DATE OF EXAM: 01/01/2021 COMPARISON: NONE HISTORY: Abdominal pain TECHNIQUE: 2 views upright and supine FINDINGS: There is no sign of intestinal obstruction or pneumoperitoneum. Fecal pattern is normal. Th ere is slight blunting of the left costophrenic angle. Heart appears enlarged. There are numerous jennifer gical clips in the pelvis. IMPRESSION: Pleural reaction and fluid at the left lung base. Nonacute abdomen.
[2021-01-01] MEDS: DONEPEZIL 10 MG TAB PO SCH (21:01)
[2021-01-01] MEDS: ATORVASTATIN 20 MG TAB PO SCH (21:01)
[2021-01-01] MEDS: LATANOPROST 0.005% OPHTH DROPS 2.5 ML BTL BOTH EYES SCH (21:02)
--- NOTE | 2021-01-01 21:18 | P.PN ---
Subjective Progress Note Date: 01/01/21 Principal diagnosis: syncope Patient ischet 85 yo CM with a hx of glaucoma, [place], A fib with eliquis, and HTN who presented with multiple syncopal episodes. In the emergency department he underwent extensive evaluation was found to have anemia, elevated BUN, and elevated troponin 0.0-3. Urinalysis was negative, COVID-19 was negative. Chest x-ray showed no acute process. Patient was admitted for further evaluation of his syncope. EKG demonstrated A. fib rate controlled.Echocardiogram was completed revealing normal EF between 50 and 55% with mild to moderate aortic valve sclerosis. He then noted to have dark tarry stools by nursing. Surgery was consulted. He underwent CT abdomen and pelvis which showed a 2 cm mural based thickening along the lower ascending colon, sigmoid diverticulosis, nonobstructing left renal calculi and L1 endplate abnormality. He was seen by ortho spine who recommended conservative therapy with bracing as needed for pain. Cardio did not feel further work-up was indicated. He underwent an EGD and colonoscopy on 12/19 which showed a right colonic mass, antral gastritis, and esophagitis along with small hiatal hernia. On 12/26 the patient underwent a right colectomy with partial omentectomy. He has been progressing well since that time. Complains of increased abdominal pain on 01/01/21. Patient seen and examined at bedside with family present. C/O abdominal pain that was worse with eating no nausea, no vomiting. + BM, up less last night than prior with feel of having to go to the bathroom. General: non toxic, no distress, appears at stated age Derm: warm, dry, Head: atraumatic, normocephalic, symmetric, hard of hearing, blind Eyes: EOMI, no lid lag, anicteric sclera Mouth: no lip lesion, mucus membranes moist Cardiovascular: S1S2 reg, no murmur, positive posterior tibial pulse bilateral, Lungs: Decreased breath sounds bilaterally bilateral, no rhonchi, no rales , no accessory muscle use Abdominal: soft, + TTP in the RUQ, no guarding, no appreciable organomegaly him a midline laparotomy incision with dressing in place Ext: no gross muscle atrophy, no edema, no contractures Neuro: CN II-XI grossly intact, no focal neuro deficits Psych: Alert, oriented, appropriate affect 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 -PT recs 2 Second pause on Tele, resolved - Cardizem - follow on tele. Atrial Fibrillation -Heart rate well controlled -Eliquis resumed per surgery L1 Vertebral Compression Fracture, Low back pain - pain medications - Outpatient follow-up with Dr. Barker - PT/OT Hypertension -Monitor vital signs and continue daily medication regimen. Hyperlipidemia -Continue daily medication regimen with atorvastatin 20 mg nightly Glaucoma -Continue daily medication regimen with eyedrops. Discharge Needs: Hospital Bed: Patient requires hospital bed for pain management. Gaudencio has colon cancer with L1 compression fracture and is unable to lie flat and go from lying to sitting without sifnificant pain and required hospital bed for pain man agement Bedside Commode: Patient requires bedside commode as he is confined to his room due to pain when walking from compression fracture and cancer, he is unable to walk long desistance without pain CODE STATUS: Full code DVT prophylaxis: SCDs Discussed with: Patient and RN, family Anticipated discharge date: Clinical course to determine Anticipated discharge place: Home versus SNF Objective - Vital Signs Vital signs: Vital Signs Temp 98.7 F 01/01/21 14:41 Pulse 58 L 01/01/21 14:41 Resp 18 01/01/21 14:41 BP 137/66 01/01/21 14:41 Pulse Ox 95 01/01/21 14:41 Intake & Output 01/01/21 01/01/21 01/02/21 06:59 18:59 06:59 Intake Total Output Total 901 Balance -901 Intake: Oral Output: Urine 900 Stool 1 Other: Voiding Method Bedside Commode Urinal Diaper # Voids 4 # Bowel Movements 1 - Labs CBC & Chem 7: 12/30/20 06:04 01/01/21 06:46 Labs: Abnormal Lab Results - Last 24 Hours (Table) 01/01/21 Range/Units 06:46 Carbon Dioxide 21.5 L (21.6-31.8) mmol/L BUN 4.6 L (9.0-27.0) mg/dL BUN/Creatinine Ratio 4.96 L (12.00-20.00) Ratio Total Protein 5.1 L (6.2-8.2) g/dL Albumin 3.1 L (3.8-4.9) g/dL Albumin/Globulin Ratio 1.54 L (1.60-3.17) g/dL
--- NOTE | 2021-01-01 21:21 | P.PN ---
Progress Note - Text Progress Note Date: 01/01/21 Advanced Care Planning: Diagnoses: Colon cancer Discussion: Person(s) present and participating in discussion: patient, son Summary: Patient had new diagnosis of colon cancer requiring colectomy with primary anastomosis as well as L1 compression fracture this hospital stay. Despite preceding with surgery and patient's return of bowel function he continues to have a low appetite. He is not eating enough to sustain himself long-term. Son states he is concerned that his father may need hospice setting. He is familiar with hospice however his mother is having difficulty dealing with the patient's new status. We discussed palliative care in detail and that they would be helpful in his mother seeing the need for hospice. We discussed trying Marinol to see if that may help increase the patient's appetite. We discussed the benefits as well as the risks, and son will discuss with the rest of the family. We also discussed that I will complete [facility] paperwork for the son to provide care for his father. He will bring in paperwork tomorrow. Plan is to take Niranjan home with home health services and palliative care. A total of 17 minutes of face to face time was spent discussing advanced care planning.
[2021-01-02] MEDS: metroNIDAZOLE 500 MG TAB PO SCH ×4 (00:32→23:13)
[2021-01-02] MEDS: HYDROcodone/APAP 5-325MG 1 EACH TAB PO PRN ×3 (03:14→17:19)
[2021-01-02] MEDS: LIDOCAINE 5% PATCH TOPICAL SCH (09:07)
[2021-01-02] MEDS: CHOLECALCIFEROL 25 MCG (1000 IU) TABLET PO SCH (09:10)
[2021-01-02] MEDS: PANTOPRAZOLE 40 MG TABLET PO SCH (09:13)
[2021-01-02] MEDS: MULTIVITAMINS, THERA 1 EACH TAB PO SCH (09:13)
[2021-01-02] MEDS: APIXABAN 2.5 MG TABLET PO SCH ×2 (09:13→21:09)
[2021-01-02] MEDS: CYANOCOBALAMIN 500 MCG TAB PO SCH (09:13)
[2021-01-02] MEDS: SENNOSIDES-DOCUSATE SODIUM 1 EACH TAB PO SCH ×2 (09:13→21:09)
[2021-01-02] MEDS: DILTIAZEM ORAL 30 MG TAB PO SCH ×2 (09:14→21:50)
[2021-01-02] MEDS: TIMOLOL 0.5% OPHTH DROPS 5 ML BTL BOTH EYES SCH ×2 (09:14→21:19)
[2021-01-02] MEDS: PILOCARPINE 1% OPHTH DROPS 15 ML BTL RIGHT EYE SCH ×2 (09:15→21:20)
[2021-01-02] MEDS: NYSTATIN 100,000 UNIT/ML SUSP 500,000 UNIT/5 ML CUP PO SCH ×4 (09:20→21:36)
[2021-01-02] MEDS: ASCORBIC ACID 500 MG TAB PO SCH (09:24)
[2021-01-02 10:45] LABS: Magnesium 1.7 mg/dL (1.5-2.4); Phosphorus 2.7 mg/dL (2.4-5.1)
[2021-01-02 10:52] LABS: African American GFR (CKD) 80.3 (60.0-200.0); Albumin 2.9 g/dL (3.8-4.9); Albumin/Globulin Ratio 1.51 (1.60-3.17); Anion Gap 9.9 mmol/L (4.00-12.00); BUN/Creat Ratio 5.86 Ratio (12.00-20.00); Blood Urea Nitrogen 5.8 mg/dL (9.0-27.0); Calcium 8.3 mg/dL (8.7-10.3); Carbon Dioxide 22.5 mmol/L (21.6-31.8); Globulin 1.9 g/dL (1.6-3.3); Non-African American GFR(CKD) 69.3 (60.0-200.0); Potassium 3.8 mmol/L (3.5-5.5); Total Bilirubin 0.3 mg/dL (0.30-1.20); Total Protein 4.9 g/dL (6.2-8.2)
--- NOTE | 2021-01-02 11:17 | P.PN ---
Subjective Progress Note Date: 01/02/21 CHIEF COMPLAINT: GI bleed HISTORY OF PRESENT ILLNESS: Patient is status post right colectomy for colon ca ncer. Patient is lying in bed comfortably. He does complain of pain at the incision site. He is due for his pain medication. Denies any nausea or vomiting. He is having flatus and bowel movements. Appetite is showing improvement. KUB x-ray was negative. Afebrile. Sodium 138 potassium 3.8 BUN 5.8 creatinine 1.0 PHYSICAL EXAM: VITAL SIGNS: Reviewed. GENERAL: Well-developed in no acute distress. HEENT: No sclera icterus. Extraocular movements grossly intact. Moist buccal mucosa. Head is atraumatic, normocephalic. ABDOMEN: Soft. Nondistended. Mild incision tenderness, Incisional dressing clean dry and intact NEUROLOGIC: Lying in bed comfortably. Hard of hearing ASSESSMENT: 1. Colon cancer status post right colectomy 2. Acute GI bleed with acute blood loss anemia likely due to right colon mass 3. Leukocytosis resolved PLAN: -Family considering palliative care -Continue low fiber diet -Continue pain medication as needed -Continue antibiotics -Pathology report pending -Encouraged patient to use incentive spirometer -Encouraged patient to increase activity level -GI prophylaxis Protonix and DVT prophylaxis subcu heparin Physician Regional Sales Coordinator note has been reviewed by physician. Signing provider agrees with the documented findings, assessment, and plan of care. Objective - Vital Signs Vital signs: Vital Signs Temp 98.1 F 01/02/21 05:00 Pulse 65 01/02/21 05:00 Resp 16 01/02/21 05:00 BP 149/70 01/02/21 05:00 Pulse Ox 95 01/02/21 05:00 Intake & Output 01/01/21 01/02/21 01/02/21 18:59 06:59 18:59 Output Total 901 Balance -901 Output: Urine 900 Stool 1 Other: Voiding Method Bedside Commode Bedside Commode Urinal Urinal Diaper Diaper # Voids 4 2 # Bowel Movements 1 1 - Labs CBC & Chem 7: 12/30/20 06:04 01/02/21 05:49 Labs: Abnormal Lab Results - Last 24 Hours (Table) 01/02/21 Range/Units 05:49 BUN 5.8 L (9.0-27.0) mg/dL BUN/Creatinine Ratio 5.86 L (12.00-20.00) Ratio Calcium 8.3 L (8.7-10.3) mg/dL AST 51 H (14-35) U/L Total Protein 4.9 L (6.2-8.2) g/dL Albumin 2.9 L (3.8-4.9) g/dL Albumin/Globulin Ratio 1.51 L (1.60-3.17) g/dL
--- NOTE | 2021-01-02 13:17 | P.PN ---
Subjective Progress Note Date: 01/02/21 Principal diagnosis: Adenocarcinoma, likely colon Patient continues to struggle with motivation to move, get out of bed and increase po intake. Per MR discussions related to palliaitive care and/or hospice care have been discussed with family and likely plan is palliative care at home with Physical therapy. He was started on Marinol, this should help appetite. With him on eliquis could double with megace for increased mood as well. Objective - Vital Signs Vital signs: Vital Signs Temp 98.1 F 01/02/21 05:00 Pulse 65 01/02/21 05:00 Resp 16 01/02/21 05:00 BP 149/70 01/02/21 05:00 Pulse Ox 95 01/02/21 05:00 Intake & Output 01/01/21 01/02/21 01/02/21 18:59 06:59 18:59 Output Total 901 Balance -901 Output: Urine 900 Stool 1 Other: Voiding Method Bedside Commode Bedside Commode Urinal Urinal Diaper Diaper # Voids 4 2 # Bowel Movements 1 1 - Exam Fatigued. lethargic Awakens to stimulates Very [place] NAD Lungs: diminished, no increased effort Heart: Reg irr Abdomen: Soft dist, In pain, evidence of surgical intervention Ext: No edema - Labs CBC & Chem 7: 12/30/20 06:04 01/02/21 05:49 Labs: Abnormal Lab Results - Last 24 Hours (Table) 01/02/21 Range/Units 05:49 BUN 5.8 L (9.0-27.0) mg/dL BUN/Creatinine Ratio 5.86 L (12.00-20.00) Ratio Calcium 8.3 L (8.7-10.3) mg/dL AST 51 H (14-35) U/L Total Protein 4.9 L (6.2-8.2) g/dL Albumin 2.9 L (3.8-4.9) g/dL Albumin/Globulin Ratio 1.51 L (1.60-3.17) g/dL Assessment and Plan (1) Adenocarcinoma Narrative/Plan: Moderately differentiated colon, CT revealed some distal esophageal thickening. there appears to be no further evidence of metastatic disease Current Visit: Yes Status: Acute Priority: High Code(s): C80.1 - MALIGNANT (PRIMARY) NEOPLASM, UNSPECIFIED SNOMED Code(s): 611685536 (2) Dehydration Current Visit: Yes Status: Acute Code(s): E86.0 - DEHYDRATION SNOMED Code(s): 00702126 (3) Normocytic normochromic anemia Current Visit: Yes Status: Acute Priority: Medium Code(s): D64.9 - ANEMIA, UNSPECIFIED SNOMED Code(s): 81999311 (4) Thrush, oral Current Visit: Yes Status: Acute Priority: High Code(s): B37.0 - CANDIDAL STOMATITIS SNOMED Code(s): 09103121 Plan: Status Post Right Colectomy with anastamosis. Pain Incentive spirometer at bedside. Spoke with Surgery, mesentary LN removed Omental Sampling was sent per note. Plan at this time is to await pathology result and send tissue for further testing NGS. Thickening in Distal Esophagus, EGD was performed and negative for malignancy, revealing esophagitis and esonophils. Failure to Thrive: - Patient is not eating or getting out of bed, not working with Physical therapy the way he needs to for recovery of surgery. Family is trying to encourage along with staff. Plan appears to be palliative care services at home with home care at discharge. - Agree with Marinol, could add megace as well Awaiting final path
[2021-01-02] MEDS: ACETAMINOPHEN TAB 500 MG TAB PO PRN ×2 (13:58→22:13)
--- NOTE | 2021-01-02 14:47 | P.PN ---
Subjective Progress Note Date: 01/02/21 Principal diagnosis: syncope Patient isan 85 yo CM with a hx of glaucoma, [place], A fib with eliquis, and HTN who presented with multiple syncopal episodes. In the emergency department he underwent extensive evaluation was found to have anemia, elevated BUN, and elevated troponin 0.0-3. Urinalysis was negative, COVID-19 was negative. Chest x-ray showed no acute process. Patient was admitted for further evaluation of his syncope. EKG demonstrated A. fib rate controlled.Echocardiogram was completed revealing normal EF between 50 and 55% with mild to moderate aortic valve sclerosis. He then noted to have dark tarry stools by nursing. Surgery was consulted. He underwent CT abdomen and pelvis which showed a 2 cm mural based thickening along the lower ascending colon, sigmoid diverticulosis, nonobstructing left renal calculi and L1 endplate abnormality. He was seen by ortho spine who recommended conservative therapy with bracing as needed for pain. Cardio did not feel further work-up was indicated. He underwent an EGD and colonoscopy on 12/19 which showed a right colonic mass, antral gastritis, and esophagitis along with small hiatal hernia. On 12/26 the patient underwent a right colectomy with partial omentectomy. He has been progressing well since that time. Complains of increased abdominal pain on 01/01/21. KUB without ileus. Patient seen and examined at bedside with family present. Still with abdominal General: non toxic, no distress, appears at stated age Derm: warm, dry, Head: atraumatic, normocephalic, symmetric, hard of hearing, blind Eyes: EOMI, no lid lag, anicteric sclera Mouth: no lip lesion, mucus membranes moist Cardiovascular: S1S2 reg, no murmur, positive posterior tibial pulse bilateral, Lungs: Decreased breath sounds bilaterally bilateral, no rhonchi, no rales , no accessory muscle use Abdominal: soft, + TTP in the RUQ, no guarding, no appreciable organomegaly him a midline laparotomy incision with dressing in place Ext: no gross muscle atrophy, no edema, no contractures Neuro: CN II-XI grossly intact, no focal neuro deficits Psych: Alert, oriented, appropriate affect 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: Status post right colectomy Acute blood loss anemia due to GI bleed with gross melena, Hgb stable Gastritis, Esophagitis Right colon mass, awaiting pathology from colectomy -Received transfusion of 2 units PRBCs during this admission -Eliquis resumed 12/30 and HgB stable -Protonix -on low fiber diet - surgery recs Severe Protein Calorie Malnutrition - marinol - encourage oral intake Syncope on presentation, likely multifactorial secondary to acute blood loss resulting in hypovolemia with elevated troponins Type II NSTEMI due to anemia -cardio recs appreciated -Echocardiogram was completed revealing normal EF between 50 and 55% with mild to moderate aortic valve sclerosis. -PT recs 2 Second pause on Tele, resolved - Cardizem - follow on tele. Atrial Fibrillation -Heart rate well controlled -Eliquis resumed per surgery L1 Vertebral Compression Fracture, Low back pain - pain medications - Outpatient follow-up with Dr. Barker - PT/OT Hypertension -Monitor vital signs and continue daily medication regimen. Hyperlipidemia -Continue daily medication regimen with atorvastatin 20 mg nightly Glaucoma -Continue daily medication regimen with eyedrops. Discharge Needs: Hospital Bed: Patient requires hospital bed for pain management. Gaudencio has colon cancer with L1 compression fracture and is unable to lie flat and go from lying to sitting without sifnificant pain and required hospital bed for pain man agement Bedside Commode: Patient requires bedside commode as he is confined to his room due to pain when walking from compression fracture and cancer, he is unable to walk long desistance without pain CODE STATUS: Full code DVT prophylaxis: SCDs Discussed with: Patient and RN, family Anticipated discharge date:D/C on AM Anticipated discharge place: Home with HH and Palliative care Objective - Vital Signs Vital signs: Vital Signs Temp 98.7 F 01/02/21 12:55 Pulse 58 L 01/02/21 12:55 Resp 17 01/02/21 12:55 BP 150/75 01/02/21 12:55 Pulse Ox 94 L 01/02/21 12:55 Intake & Output 01/01/21 01/02/21 01/02/21 18:59 06:59 18:59 Output Total 901 Balance -901 Weight 65.5 kg Output: Urine 900 Stool 1 Other: Voiding Method Bedside Commode Bedside Commode Urinal Urinal Diaper Diaper # Voids 4 2 # Bowel Movements 1 1 - Labs CBC & Chem 7: 12/30/20 06:04 01/02/21 05:49 Labs: Abnormal Lab Results - Last 24 Hours (Table) 01/02/21 Range/Units 05:49 BUN 5.8 L (9.0-27.0) mg/dL BUN/Creatinine Ratio 5.86 L (12.00-20.00) Ratio Calcium 8.3 L (8.7-10.3) mg/dL AST 51 H (14-35) U/L Total Protein 4.9 L (6.2-8.2) g/dL Albumin 2.9 L (3.8-4.9) g/dL Albumin/Globulin Ratio 1.51 L (1.60-3.17) g/dL
[2021-01-02] MEDS: ATORVASTATIN 20 MG TAB PO SCH (21:09)
[2021-01-02] MEDS: DONEPEZIL 10 MG TAB PO SCH (21:09)
[2021-01-02] MEDS: LATANOPROST 0.005% OPHTH DROPS 2.5 ML BTL BOTH EYES SCH (21:19)
[2021-01-02] MEDS: MELATONIN 5 MG TABLET PO PRN (22:13)
[2021-01-03 04:32] VITALS: RESP 18
[2021-01-03] MEDS: HYDROcodone/APAP 5-325MG 1 EACH TAB PO PRN (05:10)
[2021-01-03] MEDS: APIXABAN 2.5 MG TABLET PO SCH (10:04)
[2021-01-03] MEDS: ASCORBIC ACID 500 MG TAB PO SCH (10:04)
[2021-01-03] MEDS: CYANOCOBALAMIN 500 MCG TAB PO SCH (10:04)
[2021-01-03] MEDS: CHOLECALCIFEROL 25 MCG (1000 IU) TABLET PO SCH (10:05)
[2021-01-03] MEDS: MULTIVITAMINS, THERA 1 EACH TAB PO SCH (10:05)
[2021-01-03] MEDS: LIDOCAINE 5% PATCH TOPICAL SCH (10:05)
[2021-01-03] MEDS: PANTOPRAZOLE 40 MG TABLET PO SCH (10:05)
[2021-01-03] MEDS: NYSTATIN 100,000 UNIT/ML SUSP 500,000 UNIT/5 ML CUP PO SCH ×2 (10:06→12:51)
[2021-01-03] MEDS: metroNIDAZOLE 500 MG TAB PO SCH (10:06)
[2021-01-03] MEDS: SENNOSIDES-DOCUSATE SODIUM 1 EACH TAB PO SCH (10:06)
[2021-01-03] MEDS: TIMOLOL 0.5% OPHTH DROPS 5 ML BTL BOTH EYES SCH (10:07)
[2021-01-03] MEDS: PILOCARPINE 1% OPHTH DROPS 15 ML BTL RIGHT EYE SCH (10:07)
[2021-01-03] MEDS: ACETAMINOPHEN TAB 500 MG TAB PO PRN (10:15)
--- NOTE | 2021-01-03 10:26 | P.PN ---
Subjective Progress Note Date: 01/03/21 CHIEF COMPLAINT: GI bleed HISTORY OF PRESENT ILLNESS: Patient is status post right colectomy for colon ca ncer. Patient is lying in bed comfortably. He reports that his pain is controlled. Denies any nausea vomiting. He was able to eat half of his oatmeal. He is having bowel movements and flatus. Afebrile. Patient scheduled for discharge with home care and palliative care today. PHYSICAL EXAM: VITAL SIGNS: Reviewed. GENERAL: Well-developed in no acute distress. HEENT: No sclera icterus. Extraocular movements grossly intact. Moist buccal mucosa. Head is atraumatic, normocephalic. ABDOMEN: Soft. Nondistended. Incision site clean dry and intact. NEUROLOGIC: Lying in bed comfortably. Hard of hearing ASSESSMENT: 1. Colon cancer status post right colectomy 2. Acute GI bleed with acute blood loss anemia likely due to right colon mass 3. Leukocytosis resolved PLAN: -Patient can be discharged from surgical standpoint -Continue regular diet -Continue pain medication as needed -Encouraged patient to use incentive spirometer -Encouraged patient to increase activity level Physician Stone And Plate Preparer Apprentice note has been reviewed by physician. Signing provider agrees with the documented findings, assessment, and plan of care. Objective - Vital Signs Vital signs: Vital Signs Temp 98 F 01/03/21 04:30 Pulse 61 01/03/21 04:30 Resp 18 01/03/21 04:30 BP 153/80 01/03/21 04:30 Pulse Ox 97 01/03/21 04:30 Intake & Output 01/02/21 01/03/21 01/03/21 18:59 06:59 18:59 Weight 65.5 kg Other: Voiding Method Bedside Commode Urinal Diaper # Voids 4 0 - Labs CBC & Chem 7: 12/30/20 06:04 01/02/21 05:49 Labs: Abnormal Lab Results - Last 24 Hours (Table) 01/02/21 Range/Units 05:49 BUN 5.8 L (9.0-27.0) mg/dL BUN/Creatinine Ratio 5.86 L (12.00-20.00) Ratio Calcium 8.3 L (8.7-10.3) mg/dL AST 51 H (14-35) U/L Total Protein 4.9 L (6.2-8.2) g/dL Albumin 2.9 L (3.8-4.9) g/dL Albumin/Globulin Ratio 1.51 L (1.60-3.17) g/dL
[2021-01-03 13:14] VITALS: BP 113/58; PULSE 56; TEMP 98.8
[2021-01-03] MEDS ORDERED: MORPHINE SULFATE 4 MG/ML SYRINGE IM STA (13:31)
--- NOTE | 2021-01-03 18:13 | P.PN ---
Subjective Progress Note Date: 01/03/21 Principal diagnosis: Adenocarcinoma, likely colon Discussed pathology with patient, his perfirmance is too low to consider adjuvant treatment at this time however they would like the additional testing with oncotype and NGS as they are hoping to increase his overall performance the next few weeks Objective - Vital Signs Vital signs: Vital Signs Temp 98.8 F 01/03/21 13:13 Pulse 56 L 01/03/21 13:13 Resp 18 01/03/21 13:13 BP 113/58 01/03/21 13:13 Pulse Ox 95 01/03/21 13:13 Intake & Output 01/02/21 01/03/21 01/03/21 18:59 06:59 18:59 Output Total 1 Balance -1 Weight 65.5 kg Output: Stool 1 Other: Voiding Method Bedside Commode Bedside Commode Urinal Urinal Diaper Diaper # Voids 4 0 - Exam Fatigued. lethargic Awakens to stimulates Very OSAGE NAD Lungs: diminished, no increased effort Heart: Reg irr Abdomen: Soft dist, In pain, evidence of surgical intervention Ext: No edema - Labs CBC & Chem 7: 12/30/20 06:04 01/02/21 05:49 Assessment and Plan (1) Adenocarcinoma Narrative/Plan: Moderately differentiated colon, CT revealed some distal esophageal thickening. there appears to be no further evidence of metastatic disease 2/[address] Will send for oncotype NGS At this time performance too low to consider adjuvant therapy Status: Acute Priority: High Code(s): C80.1 - MALIGNANT (PRIMARY) NEOPLASM, UNSPECIFIED SNOMED Code(s): 366925459 (2) Dehydration Status: Acute Code(s): E86.0 - DEHYDRATION SNOMED Code(s): 37401595 (3) Normocytic normochromic anemia Status: Acute Priority: Medium Code(s): D64.9 - ANEMIA, UNSPECIFIED SNOMED Code(s): 78928751 (4) Thrush, oral Status: Acute Priority: High Code(s): B37.0 - CANDIDAL STOMATITIS SNOMED Code(s): 83145918 Plan: Status Post Right Colectomy with anastamosis. Pain Incentive spirometer at bedside. Spoke with Surgery, mesentary LN removed Omental Sampling was sent per note. Plan at this time is to await pathology result and send tissue for further testing NGS. Thickening in Distal Esophagus, EGD was performed and negative for malignancy, revealing esophagitis and esonophils. Failure to Thrive: - Patient is not eating or getting out of bed, not working with Physical therapy the way he needs to for recovery of surgery. Family is trying to encour age along with staff. Plan appears to be palliative care services at home with home care at discharge. - Agree with Marinol, could add megace as well Reviewed final path with patient and family. Will follow-up in 3-4 weeks to revaluate performance
--- NOTE | 2021-01-03 18:39 | P.DS ---
Providers Date of admission: 12/15/20 00:27 Expected date of discharge: 01/03/21 Attending physician: Shannon Koo MD Consults: 12/15/20 00:28 Consult Physician Routine Consulting Provider: Bel Carrasco Consult Reason/Comments: nstemi Do you want consulting provider notified?: Yes 12/16/20 10:49 Consult Physician Urgent Consulting Provider: Dayron Gauthier Consult Reason/Comments: GI bleed Do you want consulting provider notified?: Already Contacted 12/16/20 14:52 Consult Physician Routine Consulting Provider: Justin Barker Consult Reason/Comments: L1 severe endplate deformity, recent fall, lower back pain. Poss LSO brace? 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 Atrial Fibrillation with 2 Second pause on Tele, resolved L1 Vertebral Compression Fracture, Low back pain Hypertension Hyperlipidemia Glaucoma Hospital Course: Patient isan 85 yo CM with a hx of glaucoma, [place], A fib with eliquis, and HTN who presented with multiple syncopal episodes. In the emergency department he underwent extensive evaluation was found to have anemia, elevated BUN, and elevated troponin 0.0-3. Urinalysis was negative, COVID-19 was negative. Chest x-ray showed no acute process. Patient was admitted for further evaluation of his syncope. EKG demonstrated A. fib that was rate controlled.Echocardiogram was completed revealing normal EF between 50 and 55% with mild to moderate aortic valve sclerosis. He then noted to have dark tarry stools by nursing. Surgery was consulted. He underwent CT abdomen and pelvis which showed a 2 cm mural based thickening along the lower ascending colon, sigmoid diverticulosis, nonobstructing left renal calculi and L1 endplate abnormality. He was seen by ortho spine who recommended conservative therapy with bracing as needed for pain and outpatient follow-up. Cardio did not feel further work-up was indicated. He underwent an EGD and colonoscopy on 12/19 which showed a right colonic mass, antral gastritis, and esophagitis along with small hiatal hernia. On 12/26 the patient underwent a right colectomy with partial omentectomy. Complains of increased abdominal pain on 01/01/21. KUB without ileus. He was very slow to progess and was not able to eat much. He was started on miranol which seemed to help. Multiple discussions were had with the family regarding best places and care after discharge. They have elected to take the patient home. We discussed that he may not get much better than he has right now. They have also signed up for palliative care services. They will establish with visiting physicians so that he has a primary that comes to the house. Follow-up: Dr. Chavez 1-2 days, and Dr. Gauthier on 01/10. Patient can follow up with Dr. Barker and as needed and oncology in 3-4 weeks if functional status improves. Patient referred to home health and palliative on dishcarge. Patient seen and examined at bedside. Patient complains of the same abdominal pain he has been having. Denies any nausea or vomiting. Vital signs reviewed and stable. General: non toxic, no distress, appears at stated age Derm: warm, dry Head: atraumatic, normocephalic, symmetric Eyes: EOMI, no lid lag, anicteric sclera, NOME Mouth: no lip lesion, mucus membranes moist Cardiovascular: S1S2 reg, no murmur, positive posterior tibial pulse bilateral, Lungs: Decreased bs bilateral, no rhonchi, no rales , no accessory muscle use Abdominal: soft, +tender to palpation diffusely, no guarding, no appreciable organomegaly Ext: no gross muscle atrophy, no edema, no contractures Neuro: CN II-XI grossly intact, no focal neuro deficits Psych: Alert, oriented, appropriate affect A total of 52 minutes of time were spent preparing this complex discharge summary . Patient Condition at Discharge: Stable Plan - Discharge Summary Discharge Rx Participant: Yes New Discharge Prescriptions: New Diltiazem Oral [Cardizem*] 15 mg PO BID #30 tab dronabinoL [Marinol] 2.5 mg PO AC-BID #60 cap Pantoprazole [Protonix] 40 mg PO AC-BRKFST #30 tab traMADol HCl [Ultram] 50 mg PO Q8H PRN #21 tab PRN Reason: Pain Cyanocobalamin [Vitamin B-12] 1,000 mcg PO DAILY #30 tab HYDROcodone/APAP 5-325MG [[place] 5-325] 1 each PO Q6HR PRN #42 tab PRN Reason: Pain Sennosides-Docusate Sodium [Senokot-S] 1 each PO BID #60 tab Ondansetron Odt [Zofran Odt] 4 mg PO Q8HR PRN #30 tab PRN Reason: Nausea Continue Med Plus 2.0 120 ml PO BID@0800,1600 Zinc Sulfate [Orazinc] 220 mg PO DAILY@0800 Multivitamins, Thera [Multivitamin (formulary)] 1 tab PO DAILY@0800 Atorvastatin [Lipitor] 20 mg PO HS Donepezil [Aricept] 10 mg PO HS Melatonin 5 mg PO HS PRN PRN Reason: Insomnia Lidocaine [Lidoderm 5% Patch] 1 patch TRANSDERM DAILY #30 patch Acetaminophen Tab [Tylenol] 650 mg PO Q6H PRN PRN Reason: Fever And/ Or Pain Timolol 0.5% Ophth Gel Forming [Timoptic-Xe 0.5% Gel Form] 1 drop BOTH EYES BID@08,1999 Pilocarpine 1% Ophth Soln [Isopto Carpine 1%] 1 drop RIGHT EYE BID@799,1999 Apixaban [Eliquis] 2.5 mg PO BID@799,1999 Brinzolamide [Brinzolamide 1% Ophth Susp] 1 drop BOTH EYES BID@0800,1600 Latanoprost Ophth [Xalatan 0.005%] 1 drop BOTH EYES HS Cholecalciferol [Vitamin D3 (25 Mcg = 1000 Iu)] 125 mcg PO DAILY@0800 Aspirin 81 mg PO DAILY@0800 Ascorbic Acid [Vitamin C] 500 mg PO DAILY@0800 Discontinued Diltiazem Oral [Cardizem Oral] 30 mg PO BID@799,1999 Discharge Medication List Acetaminophen Tab [Tylenol] 650 mg PO Q6H PRN 12/14/20 [History] Apixaban [Eliquis] 2.5 mg PO BID@799,199912/14/20 [History] Ascorbic Acid [Vitamin C] 500 mg PO DAILY@0800 12/14/20 [History] Aspirin 81 mg PO DAILY@0800 12/14/20 [History] Atorvastatin [Lipitor] 20 mg PO HS 12/14/20 [History] Brinzolamide [Brinzolamide 1% Ophth Susp] 1 drop BOTH EYES BID@0800,1600 12/14/20 [History] Cholecalciferol [Vitamin D3 (25 Mcg = 1000 Iu)] 125 mcg PO DAILY@0800 12/14/20 [History] Donepezil [Aricept] 10 mg PO HS 12/14/20 [History] Latanoprost Ophth [Xalatan 0.005%] 1 drop BOTH EYES HS 12/14/20 [History] Med Plus 2.0 120 ml PO BID@0800,1600 12/14/20 [History] Melatonin 5 mg PO HS PRN 12/14/20 [History] Multivitamins, Thera [Multivitamin (formulary)] 1 tab PO DAILY@0800 12/14/20 [History] Pilocarpine 1% Ophth Soln [Isopto Carpine 1%] 1 drop RIGHT EYE BID@0800,199912/14/20 [History] Timolol 0.5% Ophth Gel Forming [Timoptic-Xe 0.5% Gel Form] 1 drop BOTH EYES BID @0800,199912/14/20 [History] Zinc Sulfate [Orazinc] 220 mg PO DAILY@0800 12/14/20 [History] Cyanocobalamin [Vitamin B-12] 1,000 mcg PO DAILY #30 tab 01/03/21 [Rx] Diltiazem Oral [Cardizem*] 15 mg PO BID #30 tab 01/03/21 [Rx] HYDROcodone/APAP 5-325MG [[place] 5-325] 1 each PO Q6HR PRN #42 tab 01/03/21 [Rx] Lidocaine [Lidoderm 5% Patch] 1 patch TRANSDERM DAILY #30 patch 01/03/21 [Rx] Ondansetron Odt [Zofran Odt] 4 mg PO Q8HR PRN #30 tab 01/03/21 [Rx] Pantoprazole [Protonix] 40 mg PO AC-BRKFST #30 tab 11/09/21 [Rx] Sennosides-Docusate Sodium [Senokot-S] 1 each PO BID #60 tab 01/03/21 [Rx] dronabinoL [Marinol] 2.5 mg PO AC-BID #60 cap 01/03/21 [Rx] traMADol HCl [Ultram] 50 mg PO Q8H PRN #21 tab 01/03/21 [Rx] Follow up Appointment(s)/Referral(s): [facility],Equipment [NON-STAFF] - 1 Week [facility], [NON-STAFF] - 1 Week Dustin Chavez MD [Primary Care Provider] - 1-2 days Dayron Gauthier MD [STAFF PHYSICIAN] - 01/10/21 4:00 pm Patient Instructions/Handouts: Diltiazem (By mouth), Hydrocodone/Acetaminophen (By mouth), Dronabinol (By mouth), Lidocaine (On the skin), Tramadol (By mouth), Pantoprazole (By mouth), Laxative, Stimulant Combination (By mouth), Dehydration (DC), Vitamin B12 Deficiency (GEN) Activity/Diet/Wound Care/Special Instructions: Activity: as tolerated Diet: Regular Special Instructions: [email or web address] No driving while taking [place] No lifting over 10 pounds You may shower. No soaking or tub baths for 2 weeks Very light activity until you are reevaluated at your follow up appointment with your surgeon Discharge Disposition: HOME WITH HOME HEALTH SERVICES
== END 2021-01-03 15:12 | disposition hospice, home (50) | DRG 329 ==
LOC: EC 20:55 → 3SCARD 12-15 00:27 → 6NMEDSUR 12-22 00:05 → 5NMEDONC 12-25 15:28
PROVIDERS: ADMIT Internal Medicine; ATTEND Internal Medicine
DX: C18.2 Malignant neoplasm of ascending colon (principal); I21.A1 Myocardial infarction type 2; E43 Unspecified severe protein-calorie malnutrition; B37.0 Candidal stomatitis; E87.2 Acidosis; D62 Acute posthemorrhagic anemia; I48.19 Other persistent atrial fibrillation; M48.56XA Collapsed vertebra, not elsewhere classified, lumbar region, initial encounter for fracture; K92.1 Melena; I95.9 Hypotension, unspecified; I27.20 Pulmonary hypertension, unspecified; I11.0 Hypertensive heart disease with heart failure; I50.9 Heart failure, unspecified; Z51.5 Encounter for palliative care; Z20.822 Contact with and (suspected) exposure to COVID-19; R62.7 Adult failure to thrive; M47.816 Spondylosis without myelopathy or radiculopathy, lumbar region; E78.5 Hyperlipidemia, unspecified; D50.9 Iron deficiency anemia, unspecified; E86.0 Dehydration; K29.70 Gastritis, unspecified, without bleeding; K57.30 Diverticulosis of large intestine without perforation or abscess without bleeding; K21.00 Gastro-esophageal reflux disease with esophagitis, without bleeding; E86.1 Hypovolemia; I08.3 Combined rheumatic disorders of mitral, aortic and tricuspid valves; G89.29 Other chronic pain; N20.0 Calculus of kidney; D72.829 Elevated white blood cell count, unspecified; K44.9 Diaphragmatic hernia without obstruction or gangrene; I25.10 Atherosclerotic heart disease of native coronary artery without angina pectoris; H54.8 Legal blindness, as defined in USA; H40.9 Unspecified glaucoma; H91.90 Unspecified hearing loss, unspecified ear; I25.2 Old myocardial infarction; R29.6 Repeated falls; Z68.20 Body mass index [BMI] 20.0-20.9, adult; Z79.01 Long term (current) use of anticoagulants; Z79.82 Long term (current) use of aspirin; Z79.899 Other long term (current) drug therapy; Z86.73 Personal history of transient ischemic attack (TIA), and cerebral infarction without residual deficits; Z87.442 Personal history of urinary calculi; Z95.5 Presence of coronary angioplasty implant and graft; Z87.11 Personal history of peptic ulcer disease; Z90.79 Acquired absence of other genital organ(s); Z87.19 Personal history of other diseases of the digestive system; Z98.890 Other specified postprocedural states; Z71.3 Dietary counseling and surveillance; Z88.5 Allergy status to narcotic agent; Z88.0 Allergy status to penicillin; W19.XXXA Unspecified fall, initial encounter
CPT/HCPCS: 36415; 43239; 45380; 45381; 71046; 74018; 74178; 80048; 80053; 81003; 82306; 82607; 82728; 82747; 83540; 83550; 83605; 83735; 83880; 84100; 84132; 84443; 84484; 85025; 85027; 85379; 85610; 85730; 86850; 86900; 86901; 86920; 87635; 88305; 88309; 93005; 93306; 96360; 96361; 99291

== ENCOUNTER → 2021-03-17 | Outpatient (CLI) | payer MEDICARE ==
--- NOTE | 2021-03-17 15:05 | NM ---
EXAMINATION TYPE: NM bone scan whole body DATE OF EXAM: 03/17/2021 COMPARISON: Same day whole-body CT HISTORY: Colon cancer. Delayed whole-body scanning was performed following the injection of 22.8 mCi Tc 99m MDP. Images acq uired 3 hours post injection. Whole body images in anterior and posterior projection along with addit ional spot views of the thorax abdomen and pelvis are acquired. FINDINGS: Horizontal increased radiotracer uptake near thoracolumbar junction correspond to mild to moderate co mpression type fractures at T12 and L1 level presumed subacute in age given the sclerosis on CT and i ncreased uptake on bone scan. Some increased radiotracer uptake lower lumbar spine greatest posterior L5 level favors facet arthropathy on CT correlation. Some increased radiotracer uptake in the anterolateral left lower ribs correspond to subacute or heal ing fractures at this level on CT. No additional areas of abnormal radiotracer uptake to suggest metastatic disease to the bone. Asymmet kj diminished size to the right kidney correlates with CT study. IMPRESSION: As above.
--- NOTE | 2021-03-17 15:19 | CT ---
EXAMINATION TYPE: CT ChestAbdPelvis w con DATE OF EXAM: 03/17/2021 COMPARISON: CT abdomen and pelvis December 16, 2020. Same day nuclear medicine whole body bone scan. HISTORY: Colon CA CT DLP: 1060 mGycm. Automated Exposure Control for Dose Reduction was Utilized. CONTRAST: CT scan of the thorax, abdomen and pelvis is performed with oral and with IV Contrast, patient inject ed with 80 mL of Isovue 300. FINDINGS: Seem slightly suboptimal due to patient motion artifact. LUNGS: Mild underlying emphysematous changes present. Mild to moderate parenchymal scarring in the pe riphery of the right mid to lower lobe. There is benign 8 mm calcified nodule or granuloma in the med ial left lower lobe axial image 32. No suspicious greater than 5 mm noncalcified pulmonary nodules or masses. No pleural effusion or pneumothorax seen bilaterally. MEDIASTINUM: There are no greater than 1 cm hilar or mediastinal lymph nodes. No pericardial effusi on is seen. Cardiomegaly with three-vessel coronary artery calcification and/or stents. Enlarged rig ht and left pulmonary arteries consistent with underlying pulmonary artery hypertension. Correlate cl inically. OTHER: Small degree of subareolar gynecomastia bilaterally.. LIVER/GB: Liver is heterogeneously hypodense. There is 2.3 cm simple appearing thin-walled cyst in th e right hepatic lobe axial image 62 redemonstrated. PANCREAS: No significant abnormality is seen. SPLEEN: No significant abnormality is seen. ADRENALS: Slight thickening of the left adrenal gland consistent with benign lipid rich hyperplasia r edemonstrated.. KIDNEYS: Nonobstructing left renal calculi again seen. Symmetric cortical medullary uptake and excret ion without hydronephrosis seen bilaterally. BOWEL: Small to moderate-sized hiatal hernia is redemonstrated with mild/moderate concentric wall thi ckening at this level again seen. Oral contrast does not reach level of the distal ileum makes evalua tion of distal bowel slightly suboptimal. No suspicious new small or large bowel dilatation. Surgical changes from proximal partial colectomy and small bowel anastomosis are redemonstrated. There are di stal colonic diverticula redemonstrated. GENITAL ORGANS: Surgical changes from prostatectomy redemonstrated. LYMPH NODES: No greater than 1cm abdominal or pelvic lymph nodes are appreciated. OSSEOUS STRUCTURES: Mild compression type fracture T12 level with sclerosis. Mild to moderate ai aries type fracture L1 level now present with increased sclerosis. Findings correlated with bone scan are thought subacute type fractures. [id number] disc space narrowing lumbosacral junction red emonstrated. OTHER: Moderate to severe mixed plaque of the aorta extends into branch vessels. IMPRESSION: Interval partial proximal colectomy. No suspicious new mass or adenopathy to suggest meta static malignancy.
== END | disposition home or self-care (01) ==
LOC: RADNMMAIN 10:16
PROVIDERS: ATTEND Internal Medicine Hematology & Oncology
DX: C18.9 Malignant neoplasm of colon, unspecified (principal); K57.30 Diverticulosis of large intestine without perforation or abscess without bleeding
CPT/HCPCS: 82565; 84520; 71260; 74177; 36415; 78306; A9503; Q9967